=== PATIENT | female | born 1955 | race Caucasian/White ===

== ENCOUNTER 2018-05-24 02:56 | Outpatient (CLI) | payer OTHER, SELFPAY ==
[2018-05-24 10:08] LABS: ALT 22 U/L (12-78); AST 19 U/L (15-37); Albumin 3.8 g/dL (3.4-5.0); Alkaline Phosphatase 100 U/L (46-116); BUN 14 mg/dL (7-18); Bilirubin, Total 0.5 mg/dL (0.2-1.0); CREATININE 0.74 mg/dL (0.55-1.02); Calcium 9.2 mg/dL (8.5-10.1); Chloride 103 mmol/L (98-107); Glucose 89 mg/dL (70-100); Potassium 4.5 mmol/L (3.5-5.1); Sodium 140 mmol/L (136-145); Total Protein 7.6 g/dL (6.4-8.2)
[2018-05-27 10:05] LABS: CA 125 7 U/mL (0-30)
== END 2018-05-24 03:16 ==
DX: Z00.00 Encounter for general adult medical examination without abnormal findings (principal); I87.2 Venous insufficiency (chronic) (peripheral); Z96.641 Presence of right artificial hip joint; Z87.898 Personal history of other specified conditions
CPT/HCPCS: 36415; 80053; 86304

== ENCOUNTER 2018-06-05 11:53 | Outpatient (REF) | payer OTHER, SELFPAY ==
--- NOTE | 2018-06-05 09:30 | PAPFT_PTH ---
PATIENT: Qian Brewer LOC: [facility] U#:[id number] AGE/SX: 62/F ROOM: RE06/05/[address]: Ellie Dumont APRN : 1955 BED: DIS: 06/05/2018 SPEC #: [id number] RECD: 06/06/18 12:51 STATUS: WILMA CASTILLO #: [id number] NICCI: 06/05/18 09:[address]: Ellie Dumont DEPT: [facility] Cytology RECD BY: Yocasta Mccullough Tissues: 1 - CX/ENDOCX FOR PAP SMEARS Procedures: PAP THIN PREP/[facility] Screening HPV DNA PROBE Comments: [id number]
== END 2018-06-05 12:13 ==
LOC: LBN 11:53
DX: Z12.4 Encounter for screening for malignant neoplasm of cervix (principal); Z11.51 Encounter for screening for human papillomavirus (HPV)
CPT/HCPCS: 88142; 87624

== ENCOUNTER 2018-06-12 01:07 | Outpatient (CLI) | payer OTHER, SELFPAY ==
--- NOTE | 2018-06-12 07:55 | DI.US_ITS ---
SYMPTOMS/DIAGNOSIS: HYPERDENSE MASS, F/U RADIOLOGY EXAM 2013, ? HEMANGIOMA OF LIVER, D18.03 ABDOMINAL ULTRASOUND: The aorta and vena cava are normal. There is a region of increased echogenicity in the right hepatic lobe measuring 1.3 x 1.3 x 1.6 cm which appears avascular and appears to correspond to a hemangioma seen on a prior CT of 2013. The gallbladder is normal. There are no stones or ductal dilatation. The pancreas is normal. The spleen is normal. The kidneys are intact. The right kidney measures 10.6 cm. The left kidney 10.9 cm. There is no evidence of abdominal free fluid. SUMMARY: A 1.3 x 1.3 x 1.6 cm region of increased echogenicity in the right hepatic lobe appears to correspond to a previously demonstrated hemangioma seen on the CT of 2013.
== END 2018-06-12 01:27 ==
DX: D18.03 Hemangioma of intra-abdominal structures (principal)
CPT/HCPCS: 76700

== ENCOUNTER 2018-08-19 00:14 | Outpatient (CLI) | payer OTHER, SELFPAY ==
--- NOTE | 2018-08-19 09:00 | DI.MAMMO_ITS ---
SYMPTOM/DIAGNOSIS: SCREENING, Z12.31 MAMMOGRAMS: Mammograms were interpreted according to the usual protocol including computer analysis with CAD system, tomosynthesis and C view imaging. Comparison is made with 2018. The breasts are composed of scattered fibroglandular densities, breast density, category B. No suspicious masses or suspicious microcalcifications are seen. There has been no significant change. IMPRESSION: Category 1, negative mammogram. Yearly screening mammography is recommended. [facility] ASSESSMENT OF FINDINGS: Negative. Category 1. Patient will receive a letter notifying them of these results. BI-RADS category B. There are scattered areas of fibroglandular density.
== END 2018-08-19 00:34 ==
DX: Z12.31 Encounter for screening mammogram for malignant neoplasm of breast (principal)
CPT/HCPCS: 77063; 77067

== ENCOUNTER 2019-08-27 02:00 | Outpatient (CLI) | payer OTHER, SELFPAY ==
--- NOTE | 2019-08-27 08:00 | DI.MAMMO_ITS ---
EXAM: MAMMO SCREENING CLINICAL HISTORY: screening, Z12.39 TECHNIQUE: Mammograms were interpreted according to the usual protocol including computer analysis w ith CAD system, tomosynthesis and C-view imaging. COMPARISON: 2018 and 2019 FINDINGS: The breasts are composed of scattered fibroglandular densities, Breast Density category B. No suspicious masses or suspicious microcalcifications are seen. No skin thickening or abnormal axillary lymph nodes are seen. There has been no significant change from prior exams. IMPRESSION: BI-RADS Category 1 - Negative Yearly screening mammography is recommended. Breast Density Category B, scattered fibroglandular densities.
== END 2019-08-27 02:20 ==
DX: Z12.31 Encounter for screening mammogram for malignant neoplasm of breast (principal)
CPT/HCPCS: 77063; 77067

== ENCOUNTER 2020-08-11 02:08 | Outpatient (CLI) | payer OTHER, SELFPAY ==
[2020-08-11 11:38] LABS: ALT 21 U/L (14-59); AST 17 U/L (15-37); Albumin 3.8 g/dL (3.4-5.0); Alkaline Phosphatase 90 U/L (46-116); Anion Gap 9.7 mmol/L (3-11); BUN 17 mg/dL (7-18); Bilirubin, Total 0.3 mg/dL (0.2-1.0); CO2 27.3 mmol/L (21.0-32.0); CREATININE 0.8 mg/dL (0.55-1.02); Calcium 9.1 mg/dL (8.5-10.1); Chloride 107 mmol/L (98-107); Glucose 93 mg/dL (74-106); Potassium 4.8 mmol/L (3.5-5.1); Sodium 144 mmol/L (136-145); Total Protein 7.4 g/dL (6.4-8.2)
== END 2020-08-11 02:09 | disposition home or self-care (01) ==
LOC: LBO 02:08
DX: Z00.00 Encounter for general adult medical examination without abnormal findings (principal); R25.2 Cramp and spasm
CPT/HCPCS: 36415; 80053

== ENCOUNTER → 2021-08-17 01:17 | Outpatient (CLI) | payer OTHER, SELFPAY ==
--- NOTE | 2021-08-17 07:00 | DI.MAMMO_ITS ---
Exam(s) MAMMO SCREENING EXAM: MAMMO SCREENING CLINICAL HISTORY: screening,Z12.39 TECHNIQUE: Mammograms were interpreted according to the usual protocol including computer analysis w [employer] CAD system, tomosynthesis and C-view imaging. COMPARISON: FINDINGS: The breasts are of moderate density with fairly symmetrical distribution of fibroglandular tissue. N o dominant mass or clumped microcalcification is identified in either breast. The current examinatio n is compared with previous examinations including August 2019 and there has been no gross interval kusum nge in appearance in comparison with the prior studies. IMPRESSION: No specific evidence of malignancy at this time. Routine screening examinations are suggested at yea rly intervals in this age group according to the ACS ACR guidelines. BI-RADS Category 1 - Negative Breast Density - Category B - Scattered areas of fibroglandular density
== END ==
DX: Z12.31 Encounter for screening mammogram for malignant neoplasm of breast (principal)
CPT/HCPCS: 77063; 77067

== ENCOUNTER 2021-11-07 03:22 | Outpatient (CLI) | payer OTHER, SELFPAY ==
[2021-11-07 14:50] LABS: ALT 25 U/L (14-59); AST 17 U/L (15-37); Albumin 3.6 g/dL (3.4-5.0); Alkaline Phosphatase 79 U/L (46-116); Anion Gap 6.4 mmol/L (3-11); BUN 23 mg/dL (7-18); Bilirubin, Total 0.2 mg/dL (0.2-1.0); CO2 30.6 mmol/L (21.0-32.0); CREATININE 0.9 mg/dL (0.55-1.02); Calcium 8.8 mg/dL (8.5-10.1); Calculated LDL 76 mg/dL (<100); Chloride 105 mmol/L (98-107); Cholesterol 188 mg/dL (<200); Estimated GFR 70.95 (mL/min/1.73m2); Glucose 95 mg/dL (74-106); HDL Cholesterol 90 mg/dL (40-60); Sodium 142 mmol/L (136-145); Total Protein 7.6 g/dL (6.4-8.2); Triglyceride 110 mg/dL (<150)
== END 2021-11-07 03:23 | disposition home or self-care (01) ==
LOC: LBO 03:23
DX: E78.5 Hyperlipidemia, unspecified (principal); Z00.00 Encounter for general adult medical examination without abnormal findings
CPT/HCPCS: 36415; 80053; 80061

== ENCOUNTER → 2023-09-21 00:08 | Outpatient (CLI) | payer MEDICARE, OTHER, SELFPAY ==
--- OUTSIDE RECORDS SUMMARY | 2023-09-21 00:11 | XMS_ITS | Encounter Summary ---
[place] [address] Care Team Providers Care Structural Steel Shop Supervisor Name Role Phone Ellie Dumont BOONE Primary Care Provider Encounter Details Date Type Department Care Team (Late st Contact Info) Description 04/10/2017 Telephone [place] [phone] Deirdre Macdonald, RN Social History Tobacco Use Types Packs/Day Years Used Date Smoking Tobacco: Never Smokeless Tobacco: Never Alcohol Use Standard Drinks/Week Comments Yes 10 (1 standard drink = 0.6 oz pu re alcohol) Sex and Gender Information Value Date Recorded Sex Assigned at Not on file Gender Identity Not on file Sexual Orientation Not on file documented as of this encounter Miscellaneous Notes * Telephone Encounter - Deirdre Macdonald, RN - 04/10/2017 2:41 PM EST Surgeon Role Peter Claire MD Primary Karyn Cheek MD Resident-Surgeon [place] Procedure Laterality Anesthesia @TOTAL HIP ARTHROPLASTY, ANTERIOR APPROACH (WRVU 20.72) Right DOS: 04/09/2017 This author called the patient in regards to the message left on the prescription line. Patient needed clarification for Acetaminophen prescription and medication instructions. Clarified to the patient that according to the discharge summaryshe should take Acetaminophen 1000 mg tablets every 8 hours around the clock, not to exceed 3000 mg in 24 hours for 10 days after the surgery. Informed the patient that she can purchase 500 mg strength Acetaminophen OTC at the local pharmacy. Patient was grateful for clarification and is in agreement with the plan. documented in this encounter Plan of Treatment Not on file documented as of this encounter Visit Diagnoses Not on filedocumented in this encounter Care Teams Structural Steel Shop Supervisor Relationship Specialty Start Date End Date Ellie Dumont, BOONE [address] [place] [address] [address] [facility] [address] [place] [address] PCP - General Family Medicine 11/27/16 11/11/21 documented as of this encounter
--- OUTSIDE RECORDS SUMMARY | 2023-09-21 00:11 | XMS_ITS | Encounter Summary ---
Author Organization [facility] [place] [address] Care Team Providers Care Senior Radiation Protection Technician Name Role Phone Ellie Dumont APRN Primary Care Provider Encounter Details Date Type Department Care Team (Late st Contact Info) Description 10/31/2016 Telephone [place] [phone] Peter Claire MD [facility] [place] [address] Social History Tobacco Use Types Packs/Day Years Used Date Smoking Tobacco: Never Smokeless Tobacco: Never Alcohol Use Standard Drinks/Week Comments Yes 2.5 (1 standard drink = 0.6 oz p ure alcohol) Sex and Gender Information Value Date Recorded Sex Assigned at Not on file Gender Identity Not on file Sexual Orientation Not on file documented as of this encounter Miscellaneous Notes * Telephone Encounter - Aleida Cintron - 10/31/2016 10:40 AM EDT I called and left a message for patient to call [phone] directly and schedule surgery with Dr. Claire. documented in this encounter Plan of Treatment Not on file documented as of this encounter Visit Diagnoses Not on filedocumented in this encounter Care Teams Senior Radiation Protection Technician Relationship Specialty Start Date End Date Ellie Dumont APRN [address] [place] [place] [address] PCP - General Family Medicine 11/27/16 11/11/21 documented as of this encounter
--- OUTSIDE RECORDS SUMMARY | 2023-09-21 00:11 | XMS_ITS | Encounter Summary ---
Author Organization [facility] Address [facility] [place] [address] Care Team Providers Care Stope Miner Name Role Phone Ellie Dumont BOONE Primary Care Provider [phone] Reason for Referral * Physical Therapy (Routine) - Specialty Diagnoses / Procedures Referred By Uyen stockton Referred To Contact Orthopaedic Surgery Diagnoses Presence of right artificial hip joint Sharon Sotomayor MD [facility] [place] [address] Referral ID Status Reason Start Date Expiration Date V isits Requested Visits Authorized [id number] Evaluate and Treat 04/10/2017 10/07/2017 12 12 Reason for Visit * Auth/Cert Specialty Diagnoses / Procedures Referred By Uyen stockton Referred To Contact Diagnoses Pain in right hip Unilateral primary osteoarthritis, right hip Osteoarthritis Procedures PRO TOTAL HIP ARTHROPLASTY @TOTAL HIP ARTHROPLASTY, ANTERIOR APPROACH (WRVU 20.72) Referral ID Status Reason Start Date Expiration Date Visits Re quested Visits Authorized [id number] 1 1 Encounter Details Date Type Department Care Team (Latest Contact Info) Description 04/09/2017 5:43 AM EST - 04/10/2017 9:11 AM EST Hospital Encounter [address] [place] [id number] Trina Claire MD [facility] [place] [address] Pain in right hip; Primary osteoarthritis of right hip; s/p R anterior JOSE MARIA Dakotah 04/09/17 Discharge Disposition: Home Social History Tobacco Use Types Packs/Day Years Used Date Smoking Tobacco: Never Smokeless Tobacco: Never Alcohol Use Standard Drinks/Week Comments Yes 10 (1 standard drink = 0.6 oz pu re alcohol) Sex and Gender Information Value Date Recorded Sex Assigned at Not on file Gender Identity Not on file Sexual Orientation Not on file documented as of this encounter Last Filed Vital Signs Vital Sign Reading Time Taken Comments Blood Pressure 109/65 04/10/2017 7:45 AM EST Pulse 71 04/09/2017 4:55 PM EST Temperature 37.1 ??C (98.8 ??F) 04/10/2017 3:12 AM ES T Respiratory Rate 16 04/10/2017 7:45 AM EST Oxygen Saturation 95% 04/10/2017 7:45 AM EST Inhaled Oxygen Concentration - - Weight 73.5 kg (162 lb) 04/09/2017 6:11 AM EST Height 172.7 cm (5' 7.99) 04/09/2017 6:11 AM ES T Body Mass Index 24.64 04/09/2017 6:11 AM EST documented in this encounter Discharge Summaries * Sharon Sotomayor MD - 04/09/2017 6:54 PM EST Discharge Summary Patient Name: Qian Brewer Patient Age: 61 y.o. Language: Bhutanese Race: White Ethnicity: Not nor Admit date: 04/09/2017 Discharge date and time: 04/10/2017 Attending Physician: Trina Claire MD Discharge Physician: Trina Claire MD Follow-up Recommendations for Providers: See discharge instructions for additional details. Future Appointments Date Time Provider Department Center 04/24/2017 3:00 PM Laura García MD [facility] 05/15/2017 9:00 AM [facility] DX ROOM 1 [facility] 05/15/2017 10:10 AM Trina Claire MD [facility] [address] [place] [address] CLIN Inpatient Provider Contact Information: Trina Claire MD Orthopedics: [phone] After hours and weekends, call [facility] Ball Holder, , and have the Orthopedic resident paged. Discharge Diagnoses (Hospital Problems) and Secondary Diagnoses (Chronic Problems): Active Hospital Problems Diagnosis ??? s/p R anterior JOSE MARIA Dakotah 04/09/17 Resolved Hospital Problems Diagnosis Date Resolved No resolved problems to display. Active Non-Hospital Problems Diagnosis ??? Arthritis of right hip ??? S/P left JOSE MARIA 05/06/2012 Dr. King ??? Pelvic mass Operations/Major Procedures: 04/09/2017 Surgeon(s) and Role: * Trina Claire MD - Primary * Karyn Cheek MD - Resident-Surgeon Chadwick Procedure(s): @TOTAL HIP ARTHROPLASTY, ANTERIOR APPROACH (WRVU 20.72) MODIFIER PINNACLE ACETABULUM DEPUY MODIFIER ACTIS HIP STEM DEPUY History of Presentation: Qian Brewer is a 61 y.o. female with a long history of right hip pain and osteoarthritis. ??Her pain has not responded to conservative measures. ??We discussed the risks, benefits, and alternatives of right hip arthroplasty. ??The risks included, but were not limited to, infection, stiffness,recurrent pain, injury to vessel or nerve, DVT/PE, limb length inequality, fracture, dislocation, wound breakdown, loosening, malalignment, need for additional surgery, and loss of limb and/or life. ??All questions were answered and she wished to proceed. Hospital Course: The patient was admitted for the above operation. DVT prophylaxis is: aspirin 81 mg BID. Patient began rehab on POD#1 with weight bearing as tolerated of right leg and reinforcement of the JOSE MARIA Precautions. Dillon was removed on POD#0 and patient was voiding spontaneously. On POD#1 the operative Mepilex Ag dressing was inspected and was dry and intact (dressing should remain in place until POD#7). Patient did not have a bowel movement prior to discharge but was passing flatus and was taking a diet without difficulty. Patient was voiding spontaneously without issue. Pain was well controlled on oral medications. By POD#1 the patient was medically stable and was cleared for safe discharge to home per PT. Vital Signs at Discharge: Weight: Wt Readings from Last 1 Encounters: 04/09/17 73.5 kg (162 lb) Height: Ht Readings from Last 1 Encounters: 04/09/17 172.7 cm (5' 7.99) HC: HC Readings from Last 1 Encounters: No data found for HC BMI: Body mass index is 24.64 kg/(m^2). Last value Range last 24 hrs Temperature Temp: 37.1 ??C (98.8 ??F) Temp: [36.1 ??C (97 ??F)-37.8 ??C (100 ??F)] Heart Rate Heart Rate: 67 Heart Rate: [43-91] Blood Pressure BP: 109/65 BP: (98-129)/(48-69) Respiratory Rate Resp: 16 Resp: [8-29] SpO2 SpO2: 95 % SpO2: [95 %-100 %] Art BP BP (Arterial Line): -- Functional and Cognitive Status: Patient mobilizing with assistance, cognitively intact at baselinemental status at time of discharge. Important Lab Data: Last 3 wbc, hgb, hct plt Recent Labs 04/10/17 0329 03/13/17 1046 WBC 8.0 5.4 HGB 11.4* 13.1 HCT 34.7* 40.0 PLATELET 200 253 Last 3 Lytes Recent Labs 04/10/17 0329 03/13/17 1046 NA 139 142 K 4.3 4.1 CL 103 104 CO2 24 26 BUN 16 18 CREATININE 0.77 0.71 Studies: Xr Fluoro No Rad <1hr - Or Use Result Date: 04/09/2017 This order does not need a radiologist interpretation. Xr Pelvis (generic) Result Date: 04/09/2017 EXAMINATION: XR PELVIS (GENERIC) CLINICAL HISTORY: s/p R JOSE MARIA TECHNIQUE: Single AP view of the pelvis/both hips. COMPARISON: 10/31/2016. FINDINGS: New noncemented right total hip arthroplasty. Alignment is anatomic. Soft tissue air inclusions are consistent with the early postoperative status. Stablefindings of the left total hip arthroplasty. New right total hip arthroplasty without evidence of complications. Pending Studies and Lab Data at Discharge: None Transfusions: No Discharge Conditions/Prognosis: Stable, awake, and alert. Mobilizing as noted above, pain controlled on oral medications. Discharge to: Home Updated Allergies/ADRs: No Known Allergies Immunizations Given this Hospitalization: There is no immunization history on file for this patient. Discharge Medications: Your Medications UNREVIEWED medications - Discuss With Your Provider Dose Details amoxicillin 500 mg Cap Commonly known as: AMOXIL take 4 capsules by mouth 1 hour PRIOR TO SURGERY Refills: 0 betamethasone dipropionate 0.05 % Oint Commonly known as: DIPROLENE Apply twice daily to rash on legs for two weeks, take a week off, repeat. Quantity: 45 g Refills: 1 triamcinolone 0.025 % Oint Commonly known as: KENALOG apply topically twice a day Refills: 0 Smoking Status at Discharge: History Smoking Status ??? Never Smoker Smokeless Tobacco ??? Never Used Instructions for Rehab Providers or PCP: Instructions Given to Patient at Discharge: There are no outpatient Patient Instructions on file for this admission. General Instructions Orthopaedic Discharge Instructions Activity: 1. Your weight-bearing status is - weight bearing as tolerated of right leg. 2. Remember to use a walker or crutches as needed for balance and protection. Your physical therapist may progress you to using a cane when appropriate. 3. Remember your hip precautions: Standard: You should transition from sit to stand and stand to sit utilizing a broad based stance with feet and knees wider than hips. Anticoagulation: Aspirin - You are being discharged on enteric-coated Aspirin 81 mg by mouth twice a day for 30 days. After your dose on 05/09/17 stop the Aspirin, unless you are told otherwise by your Orthopedic surgeon. Take this medication with food or large amounts (240 mL) of water or milk to minimize GI irritation. Diet: Resume your usual diet but increase your intake of fluids and fiber while you are on narcoticpain meds to prevent constipation. Driving: None until you are cleared to do so by your Orthopedic surgeon. You should not drive whileyou are on narcotic pain meds as they can affect your judgment and reaction time. Call your surgeonwith any questions/concerns. Medications: 1. The pain medication you are on can cause constipation so increase your intake of fluids and fiber while you are on them. The stool softener, Pericolace, that has been prescribed can also be taken to facilitate a bowel movement. You can also take an kopj-wuz-xmhhoip medication, Miralax if needed to combat constipation. 2. If you need a renewal on your narcotic pain medication, you need to give the Orthopedic clinic enough time to process your request. This can take up to three days, so plan accordingly. 3. Continue acetaminophen (Tylenol) 1,000mg every 8 hours around the clock until 04/19/17 (for ten days after your surgery). This can be effective in controlling pain along with your other medications.After that you can take Tylenol as needed per package insert. Do not take more than 3,000mg of acetaminophen in a 24 hour period. 4. You have been discharged on a short acting narcotic. You will be on this medication for a limited period of time only. Take the smallest dose possible to control your pain. As your pain improves take smaller, less frequent doses. You may break the tablet to achieve a smaller dose. 5. You are being discharged on prescription strength naproxen (Aleve). This medication is a type ofnonsteroidal anti-inflammatory (NSAID). This will help with your pain and inflammation. Take this twice a day for the next 6 weeks. Your last dose will be on 05/21. If you no longer are requiring the narcotic pain medication you may change the way you take the prescribed naproxen and instead take twice a day as needed. 6. You are being discharged on a proton pump inhibitor. This will decrease stomach irritation that may be caused by NSAIDs. Take this daily for the next 6 weeks while you are on the NSAID. 7. You are being discharged on gabapentin (Neurontin), a non-narcotic medication that will help with your pain at night and allow you to sleep better. Take this at night for the next 4 weeks. Shower (internal sutures): 1. You can shower but remember your activity limitations and always have a chair available for balance and protection. DO NOT submerge the dressing/incision. 2. (Mepilex) Do not let water run over the operative dressing. If it becomes wet lightly pat the dressing dry. DO NOT submerge the incision. When this operative dressing is removed you can let water gently run over the incision. Wound (Mepilex): 1. You do NOT have any external nick or sutures in place. Your sutures are internal and will be absorbed over time. 2. You have a Mepilex dressing in place. Do not lift the edge of the Mepilex dressing to inspect the incision, it will not re-adhere. Remove your operative dressing 7 days after your surgery (04/16). When it is removed you can leave the incision open to air or cover it with a light dressing. 3. If you have lots of drainage when you get home (and it is before 04/16/17), remove the operative dressing and replace it with dry sterile gauze. Continue with daily dressing changes (and as needed)until the drainage stops, then remove the dressing and leave the incision open to air or lightly covered. Misc: Remember that ICE and elevation are very important after surgery to help decrease swelling and control pain. Use ICE for 20-30 minutes at a time and keep your leg elevated as much as possible. Call your doctor ([phone]) if you develop: 1. Fever greater than 100.5 2. Severe nausea or vomiting 3. Increasing pain that is not controlled by pain medications 4. Increasing redness, swelling, or drainage from incisions 5. Change in sensation FOLLOW-UP APPOINTMENTS: 1. You will have follow-up appointments at [facility] as indicated below in Future Appointment and Orders. 2. You will need to have x-rays prior to your follow-up appointment. [facility] hour [facility]FORE that appointment for these x-rays. Future Appointments Date Time [facility] Department [place] 04/24/2017 3:00 PM Laura García MD [facility] 05/15/2017 9:00 AM [facility] DX ROOM 1 [facility] 05/15/2017 10:10 AM Trina Claire MD [facility] [place] [facility] If you have questions or concerns: Sunday through Sunday, 8 AM - 5 PM, please call Trina Zheng MD's office at . If it is after 5 PM, the weekend, or holidays, please call and ask to speak with theOrthopedic resident on-call. Future Appointments and Orders Future Appointments Provider Department Dept Phone 04/24/2017 3:00 PM Laura García MD Dermatology at [address] [phone] 05/15/2017 9:00 AM [facility] DX ROOM 1 XRay at [place] [phone] Please go to Space [facility] Area 3T ([place] Location). 05/15/2017 10:10 AM Trina Claire MD Orthopaedics at [place] [phone] Primary Care Provider: Ellie Dumont, AVIATION OPERATIONS SPECIALIST [phone] Discharge References/Attachments None Click refresh button immediately prior to signing DCS to ensure all roberson are updated. documented in this encounter Discharge Instructions * Discharge Instructions* Sharon Sotomayor MD - 04/09/2017 6:50 PM EST Orthopaedic Discharge Instructions Activity: 1. Your weight-bearing status is - weight bearing as tolerated of right leg. 2. Remember to use a walker or crutches as needed for balance and protection. Your physical therapist may progress you to using a cane when appropriate. 3. Remember your hip precautions: Standard: You should transition from sit to stand and stand to sit utilizing a broad based stance with feet and knees wider than hips. Anticoagulation: Aspirin - You are being discharged on enteric-coated Aspirin 81 mg by mouth twice a day for 30 days. After your dose on 05/09/17 stop the Aspirin, unless you are told otherwise by your Orthopedic surgeon. Take this medication with food or large amounts (240 mL) of water or milk to minimize GI irritation. Diet: Resume your usual diet but increase your intake of fluids and fiber while you are on narcoticpain meds to prevent constipation. Driving: None until you are cleared to do so by your Orthopedic surgeon. You should not drive whileyou are on narcotic pain meds as they can affect your judgment and reaction time. Call your surgeonwith any questions/concerns. Medications: 1. The pain medication you are on can cause constipation so increase your intake of fluids and fiber while you are on them. The stool softener, Pericolace, that has been prescribed can also be taken to facilitate a bowel movement. You can also take an vawl-xni-lnzrcii medication, Miralax if needed to combat constipation. 2. If you need a renewal on your narcotic pain medication, you need to give the Orthopedic clinic enough time to process your request. This can take up to three days, so plan accordingly. 3. Continue acetaminophen (Tylenol) 1,000mg every 8 hours around the clock until 04/19/17 (for ten days after your surgery). This can be effective in controlling pain along with your other medications.After that you can take Tylenol as needed per package insert. Do not take more than 3,000mg of acetaminophen in a 24 hour period. 4. You have been discharged on a short acting narcotic. You will be on this medication for a limited period of time only. Take the smallest dose possible to control your pain. As your pain improves take smaller, less frequent doses. You may break the tablet to achieve a smaller dose. 5. You are being discharged on prescription strength naproxen (Aleve). This medication is a type ofnonsteroidal anti-inflammatory (NSAID). This will help with your pain and inflammation. Take this twice a day for the next 6 weeks. Your last dose will be on 05/21. If you no longer are requiring the narcotic pain medication you may change the way you take the prescribed naproxen and instead take twice a day as needed. 6. You are being discharged on a proton pump inhibitor. This will decrease stomach irritation that may be caused by NSAIDs. Take this daily for the next 6 weeks while you are on the NSAID. 7. You are being discharged on gabapentin (Neurontin), a non-narcotic medication that will help with your pain at night and allow you to sleep better. Take this at night for the next 4 weeks. Shower (internal sutures): 1. You can shower but remember your activity limitations and always have a chair available for balance and protection. DO NOT submerge the dressing/incision. 2. (Mepilex) Do not let water run over the operative dressing. If it becomes wet lightly pat the dressing dry. DO NOT submerge the incision. When this operative dressing is removed you can let water gently run over the incision. Wound (Mepilex): 1. You do NOT have any external nick or sutures in place. Your sutures are internal and will be absorbed over time. 2. You have a Mepilex dressing in place. Do not lift the edge of the Mepilex dressing to inspect the incision, it will not re-adhere. Remove your operative dressing 7 days after your surgery (04/16). When it is removed you can leave the incision open to air or cover it with a light dressing. 3. If you have lots of drainage when you get home (and it is before 04/16/17), remove the operative dressing and replace it with dry sterile gauze. Continue with daily dressing changes (and as needed)until the drainage stops, then remove the dressing and leave the incision open to air or lightly covered. Misc: Remember that ICE and elevation are very important after surgery to help decrease swelling and control pain. Use ICE for 20-30 minutes at a time and keep your leg elevated as much as possible. Call your doctor ([phone]) if you develop: 1. Fever greater than 100.5 2. Severe nausea or vomiting 3. Increasing pain that is not controlled by pain medications 4. Increasing redness, swelling, or drainage from incisions 5. Change in sensation FOLLOW-UP APPOINTMENTS: 1. You will have follow-up appointments at [facility] as indicated below in Future Appointment and Orders. 2. You will need to have x-rays prior to your follow-up appointment. Please come to Radiology, [facility], 1 hour BEFORE that appointment for these x-rays. Future Appointments Date Time [facility] Department [place] 04/24/2017 3:00 PM Laura García MD [facility] 05/15/2017 9:00 AM [facility] DX ROOM 1 [facility] 05/15/2017 10:10 AM Trina Claire MD [facility] [place] [facility] If you have questions or concerns: Sunday through Sunday, 8 AM - 5 PM, please call Trina Zheng MD's office at . If it is after 5 PM, the weekend, or holidays, please call and ask to speak with theOrthopedic resident on-call. documented in this encounter Medications at Time of Discharge Medication Sig Dispensed Refills Start Date End Date triamcinolone (KENALOG) 0.025 % Ointment apply topically twice a day 0 11/22/2016 betamethasone dipropionate (DIPROLENE) 0.05 % OintmentIndications:Srikanth ous stasis dermatitis, unspecified laterality Apply twice daily to rash on legs for two weeks, take a week off, repeat. 45 g 1 01/08/2017 amoxicillin (AMOXIL) 500 mg Capsule take 4 capsules by mouth 1 hour PRIOR TO SURGERY 0 09/28/2016 acetaminophen (TYLENOL) 500 mg Tablet Take 2 tablets by mouth every 8 hours for 28 days. 168 tablet 04/10/2017 05/08/2017 aspirin 81 mg Tablet, Delayed Release (E.C.) Take 1 tablet by mouth 2 times daily for 30 days. 60 tablet 04/10/2017 05/10/2017 naproxen (EC NAPROSYN) 500 mg Tablet, Delayed Release (E.C.) Take 1 tablet by mouth 2 times daily (with meals) for 41 days. 82 tablet 04/10/2017 05/21/2017 gabapentin (NEURONTIN) 300 mg Capsule Take 1 capsule by mouth nightly for 28 days. 28 capsule 04/10/2017 05/08/2017 senna-docusate (PERICOLACE) 8.6-50 mg Tablet Take 2 tablets by mouth 2 times daily. Take to maintain normal bowel pattern while taking narcotic pain medication. 04/10/2017 10/15/2018 bisacodyl (DULCOLAX) 5 mg Tablet, Delayed Release (E.C.) Take 2 tablets by mouth 2 times daily as needed for Constipation. 04/10/2017 10/15/2018 polyethylene glycol (MIRALAX) 17 gram Powder in Packet Take 17 g by mouth 2 times daily. Take to maintain normal bowel pattern while taking narcotic pain medication. 04/10/2017 10/15/2018 pantoprazole (PROTONIX) 20 mg Tablet, Delayed Release (E.C.) Take 1 tablet by mouth daily. 90 tablet 04/10/2017 10/15/2018 traMADol (ULTRAM) 50 mg Tablet Take 1 tablet by mouth every 6 hours as needed for Pain. Take 1 tablet (50mg) po Q6 hours prn MILD - MODERATE pain -OR- take 2 tablets (100mg) po Q6 hours prn SEVERE pain 60 tablet 04/10/2017 10/15/2018 documented as of this encounter Progress Notes * Selene Cotton RN - 04/10/2017 8:59 AM EST IV removed, site benign. My assessment remains unchanged from my previous assessment. Patient denies chest pain or SOB. Discussed pain management. Patient medicated before discharge. Patient has all belongings and has received discharge summary. Summary reviewed and all questions answered. Patient e ncouraged to call with any further questions or concerns. Patient discharged to home with family. Discharge packet and prescriptions sent home with patient. No VNA ordered * Karyn Cheek MD - 04/10/2017 6:33 AM EST ORTHOPAEDIC SURGERY INPATIENT PROGRESS NOTE ID: Qian Brewer is a 61 y.o. female s/p R anterior TJA, Jevsevar 04/09/17 24/S: HgB 11.4 Pain well controlled, no issues overnight. Worked with PT and cleared for home O: Temp: [36.1 ??C (97 ??F)-37.8 ??C (100 ??F)] Heart Rate: [43-91] Resp: [8-29] BP: (98-129)/(48-72) Intake/Output Summary (Last 24 hours) at 04/10/17 0633 Last data filed at 04/10/17 0403 Gross per 24 hour Intake 3090 ml Output 1600 ml Net 1490 ml Lab Results Component Value Date NA 139 04/10/2017 K 4.3 04/10/2017 CL 103 04/10/2017 CO2 24 04/10/2017 BUN 16 04/10/2017 CREATININE 0.77 04/10/2017 GLUCOSE 112 04/10/2017 CALCIUM 8.5 04/10/2017 Lab Results Component Value Date WBC 8.0 04/10/2017 HGB 11.4 (L) 04/10/2017 HCT 34.7 (L) 04/10/2017 MCV 90.6 04/10/2017 PLATELET 200 04/10/2017 Exam: General: NAD, awake/alert, responds to questions CV: RRR Resp: Breathing comfortably, lungs CTAB RLE: Anterior hip dressing c/d/i Sensory intact to light touch in lat fem cut/fem/sural/saph/SP/DP/T distributions Motor intact to FHL/EHL/TA, knee extension/flexion, hip extension/flexion Brisk capillary refill distally, foot warm/well-perfused A/P: Qian Brewer is a 61 y.o. female s/p R anterior JOSE MARIA. Cleared for home yesterday, but would like to go home this morning. HgB 11.4 represents acute blood loss anemia. PMH: L JOSE MARIA 2002 Christine Activity: WBAT RLE Closure: Monocryl Dressing: Mepilex x7 Anticoagulation: ASA Antibiotics: Ancef Consults: pt/ot Follow-up: 05/15 * Sharon Sotomayor MD - 04/09/2017 6:46 PM EST Orthopaedic Surgery Post-Op Check Note Patient Name: Qian Brewer Age: 61 y.o. Surgery/Issue: Right JOSE MARIA Attending: Dr. Claire Date of surgery: 04/09/2017 Subjective/Events: Denies CP, SOB, nausea, vomiting. Pain well controlled. Denies any numbness or tingling Denies any weakness Dillon out, has not voided on her own Working w/ PT currently Objective: Temp: [36.1 ??C (97 ??F)-37.1 ??C (98.8 ??F)] Heart Rate: [43-91] Resp: [8-29] BP: (98-129)/(48-72) Intake/Output Summary (Last 24 hours) at 04/09/17 1847 Last data filed at 04/09/17 1817 Gross per 24 hour Intake 2629 ml Output 1600 ml Net 1029 ml Lab Results Component Value Date NA 142 03/13/2017 K 4.1 03/13/2017 CL 104 03/13/2017 CO2 26 03/13/2017 BUN 18 03/13/2017 CREATININE 0.71 03/13/2017 GLUCOSE 95 03/13/2017 CALCIUM 9.1 03/13/2017 Lab Results Component Value Date WBC 5.4 03/13/2017 HGB 13.1 03/13/2017 HCT 40.0 03/13/2017 MCV 91.5 03/13/2017 PLATELET 253 03/13/2017 Exam: General: NAD, awake/alert, responds to questions CV: RRR, by peripheral palpatation Resp: Breathing comfortably, lungs CTAB RLE: Dressing c/d/i. Motor intact to EHL, FHL, TA. Sensation intact in foot/calf. Brisk capillary refill distally. Imaging: AP Pelvis The right hip is reduced. There is no evidence of intra-op fracture. A/P: 61 y.o. female POD#0 s/p right JOSE MARIA, progressing well with stable vitals. PMH: L JOSE MARIA 2002 [place] Activity: WBAT RLE Closure: Monocryl Dressing: Mepilex x7 Anticoagulation: ASA Antibiotics: Ancef Consults: pt/ot Follow-up: below Future Appointments Date Time Provider Department Center 04/24/2017 3:00 PM Laura García MD [facility] 05/15/2017 9:00 AM [facility] DX ROOM 1 [facility] 05/15/2017 10:10 AM Trina Claire MD [facility] [address] [place] [address] CLIN Sharon Sotomayor MD, PGY-1 Orthopaedic Surgery Pager #: [phone] * Meron Diaz RN - 04/09/2017 6:39 PM EST Admission Note: Patient returns from OR this shift. R hip mepilex is clean, dry, intact. VSS. Patient ambulating inthe hallways. Voiding in the urinal with low PVR. Utilizing front wheel walker; plans for early 8amdischarge tomorrow. Pain managed by oral medications. * Sonam Sevilla OT - 04/09/2017 5:21 PM EST Occupational Therapy Contact Note: Pt seen today for OT assessment on POD0 s/p R anterior JOSE MARIA. Pt functionally presents without concern at this time; no OT needs identified. Pt plans to see outpatient PT after d/c. From OT standpoint pt is ok for d/c home with support from . Full note to follow. Sonam Sevilla, OTR/L Pager #[phone] * Carla Shelton RN - 04/09/2017 9:58 AM EST 0934- pt arrived in PACU from OR. Attached to monitors, alarm parameters adjusted to pt and appropriate. Alarms audible. VSS. Dressing on right anterior hip c/d/i with palpable pulses in RLE. Ice pack to hip, SCDs on. Per norris Child with HR mid 40s as long as pt not symptomatic. Pt alert and oriented upon arrival. Pt moving lower extremities, numbness present in feet bilaterally. 1000- pt continues to do well, VSS. No pain , no n/v. 1020- pt straight cathed per order, pt unable to void. 1020- page sent to Malini SIMPSON regarding pts HR to low 40s. Pt mentating well, denies dizziness or lightheadedness. Spoke with Malini SIMPSON fine with pts HR at this time. 1030- Spoke with Светлана SIMPSON to let team know of HR in the 40s. Pt not symptomatic, Alert and oriented. 1100- Post-op Xrays completed. EKG paged. Pt moving extremities well, able to bend knees and move ankles/toes. With ice, sensory level T12. Pt taking sips of water, tolerating well. 1110- turned pt to inspect back, free from injury, spinal site benign. 1115- Pt meets phase 1 discharge criteria Denies pain or n/v. VSS. Awaiting EKG. See PACU flowsheetfor further assessment. 1125- EKG at bedside. EKG complete. Светлана SIMPSON made aware of completion. 1130- Spoke with Светлана SIMPSON. EKG and Xrays read. Pt doing well, VSS. Awaiting room assignment. 1415- Page sent to Светлана SIMPSON. Some swelling noted on right hip, soft to palpation, blanchable Dressing on right hip c/d/i. Dp and PT pulses on LLE 2+, brisk cap refill. 1445- Spoke with Светлана SIMPSON, fine with slight swelling since its soft to palpation with no discoloration but will come see pt in room. 1500- report called to Gregorio CARDENAS on . documented in this encounter H&P Notes * Karyn Cheek MD - 04/09/2017 6:14 AM EST Patient Name: Qian Brewer Patient Age: 61 y.o. Birthdate: 1955 Admit date: 04/09/2017 Attending Physician: Trina Claire MD 24-HOUR UPDATE Qian Brewer was seen in SDP. No interval events or changes in health status since preoperative H+P (see EPIC). Denies angina/dyspnea/fevers or malaise within the last 14 days. All questions were answered. Stable for surgery as scheduled. documented in this encounter Miscellaneous Notes * Plan of Care - Felipa Grace RN - 04/10/2017 5:47 AM EST Problem: Patient Care Overview Goal: Plan of Care Review Outcome: Ongoing (Interventions Implemented as Appropriate) 04/09/17 3981 Coping/Psychosocial Plan Of Care Reviewed With patient Plan of Care Review Progress progress toward functional goals as expected OUTCOME EVALUATION NOTE: OUTCOME SUMMARY: Pain tolerable this shift, scheduled tylenol and Toradol given with + effect. Up independently to bathroom. Will continue to monitor and help reach D/C goals. PLAN MOVING FORWARD: Pain control, mobilize, D/C planning INDIVIDUALIZED FALL PREVENTION INTERVENTIONS: Patient-specific fall risk factors per assessment: [current deficits]: Hospital environment, decreased mobility, acute pain, narcotic pain medication Assistance [level of assistance required for transfers and ambulation]: Standby assist/independent with FWW Supervision [direct monitoring required during toileting and ADLs]: Standby assist/independent withFWW Surveillance [continuous indirect monitoring]: Hourly rounding, call tom in gia ornelas Patient-specific fall prevention interventions for sensory deficits provided, if applicable: N/A CPG GOAL OUTCOME EVALUATION: * Plan of Care - Trina Frederick, PT - 04/09/2017 5:42 PM EST Problem: Patient Care Overview Goal: Plan of Care Review Outcome: Ongoing (Interventions Implemented as Appropriate) 04/09/17 9478 Coping/Psychosocial Plan Of Care Reviewed With patient Physical Therapy Treatment Number PT: 1 Pertinent History of Current Problem: POD#0 right anterior hip. Living Environment Comment: Pt lives in [place], [place] and has a threshold into the home. Will stay on first floor. Has a walker. Plans for outpatient PT this week. Precautions/Restrictions: weight bearing, hip (WBAT R LE, standard hip precautions - feet wider than hips) Vital Signs During Session: stable Pt seen today for Physical Therapy evaluation and therapeutic exercises. Pt did very well today by safely and independently clearing PT (bed mobility/transfers/gait) for home d/c pending medical clearance. She was able to void and resident checking in with patient for d/c plan. Pt to have outpatient PT this week and already has a walker. Please see the Rehab Evaluation Summaries report for objective data and specifics of today???s session. Staff Mobility Recommendations: Supervision with walker Anticipated Physical Therapy Frequency: evaluation only Anticipated Equipment Needs at Discharge: (none, has a walker) Anticipated Discharge Disposition: home with outpatient services Pager: [phone] TRINA FREDERICK, PT Inpatient Physical Therapy 2017 PT Evaluation Code Rationale: ?? Diagnosis & Pertinent Co-Morbidities, personal factors, and present illness affecting Plan of Care: Patient Active Problem List Diagnosis Code ??? Pelvic mass R19.00 ??? Arthritis of right hip M16.11 ??? S/P left JOSE MARIA 05/06/2012 Dr. King Z96.642 ??? s/p R anterior JOSE MARIA Jevsevar 04/09/17 Z96.641 ?? List of Factors: 0 1-2 3+ x ?? Examination of body system impairments, functional limitations and behaviors, that result in participation restrictions. Addressing 1-2 elements Addressing 3 + elements x Addressing 4 + elements ?? Clinical presentation: See assessment above. Stable/Uncomplicated Evolving/Fluctuating Symptoms Unstable/Unpredictable x ?? Clinical decision making of moderate complexity based on pt's functional performance as outlinedin this evaluation. G-Code: Mobility Status Modifier CURRENT CJ - At least 20 percent but less than 40 percent impaired, limited or restricted PROJECTED CJ - At least 20 percent but less than 40 percent impaired, limited or restricted DISCHARGE CJ - At least 20 percent but less than 40 percent impaired, limited or restricted G Code Rationale: This G-Code and these disability modifiers were selected on mobility as the primary therapy goal based upon the patient's evaluation including the following functional test(s) AM-PAC - Activity Measure for Post- Acute Care. Current ability measures, co-morbidities and clinical judgement were also used to select the disability modifier. Ms. Brewer's current G-Code functional level is 20-39% impaired based upon [facility]. * Plan of Care - Sonam Sevilla OT - 04/09/2017 5:11 PM EST Problem: Patient Care Overview Goal: Plan of Care Review Outcome: Ongoing (Interventions Implemented as Appropriate) 04/10/17 1550 Coping/Psychosocial Plan Of Care Reviewed With patient Occupational Therapy Evaluation Pertinent History of Current Problem: POD#0 right anterior hip. Active Non-Hospital Problems Diagnosis ??? Arthritis of right hip ??? S/P left JOSE MARIA 05/06/2012 Dr. King ??? Pelvic mass Precautions/Restrictions: fall, weight bearing Precautions Comments: WBAT R LE, standard hip precautions - feet wider than hips Living Environment Comment: Pt lives in [place], [place] and has a threshold into the home. Will stay on first floor. Has a walker. Plans for outpatient PT this week. Prior Functional Level Comment: independent; works in sales Assessment: Pt has been seen by OT for evaluation, please refer to associated flowsheet data for details. Pt demonstrates the ability to perform basic ADL???s despite pain/discomfort R hip, decreased activity tolerance, and slight imbalance requiring use of FWW for stability at this time. Despitethis, pt demo'd functional/safe mobility with walker, and ability to perform LB dressing/toileting/light ADLs without assistance required. Pt's will be home with her to assist in higher leveltasks if needed. Pt already has plans to see outpatient PT per report. Anticipate that pt will return home with assistance. Do not anticipate further OT needs. Therapy Frequency: evaluation only Anticipated Equipment Needs at Discharge: (has walker) Anticipated Discharge Disposition: home with assist Pager: [phone] SONAM SEVILLA OT Occupational Therapy Rehabilitation Department 2017 OT Evaluation Code Rationale: ?? Diagnosis & Pertinent Co-Morbidities affecting Plan of Care: see PMHx above ?? Occupational Profile & Client History: Brief Expanded Extensive x ?? Assessment of Occupational Performance: 1-3 performance deficits 3-5 performance deficits x 5 + performance deficits ?? Clinical Decision Making: Low Moderate High x Clinical decision making of moderate complexity using standardized patient assessment instrument and measurable assessment of functional outcome. G-Code: Self-Care Status Modifier CURRENT CH - 0 percent impaired, limited or restricted PROJECTED CH - 0 percent impaired, limited or restricted DISCHARGE CH - 0 percent impaired, limited or restricted G Code Rationale: This G-Code and these disability modifiers were selected as the primary therapy goal based upon the patient's evaluation including the following functional test(s) [facility] 6 Clicks Daily Activity Form. Current ability measures, co-morbidities and clinical judgment were also used to select the disability modifier. This Patient's current G-Code functional level is 0% impairedbased upon performance on 6 clicks. * Brief Op Note - Karyn Cheek MD - 04/09/2017 9:36 AM EST Brief Operative Note Patient Name: Qian Brewer : [id number] MR#: [id number] Case Date: 04/09/2017 Surgeon: Surgeon(s) and Role: * Trina Claire MD - Primary * Karyn Cheek MD - Resident-Surgeon Chadwick Preoperative diagnosis: Osteoarthritis Postoperative diagnosis: Osteoarthritis Procedure(s) (LRB): @TOTAL HIP ARTHROPLASTY, ANTERIOR APPROACH (WRVU 20.72) (Right) MODIFIER PINNACLE ACETABULUM DEPUY (N/A) MODIFIER ACTIS HIP STEM DEPUY (Right) Anesthesia: Spinal Findings: Osteoarthritic R hip Complications: None Estimated Blood Loss: 150 mL Specimens removed during surgery: None Fluids: Intraprocedure Crystalloid Total None PRBCs: none (See Anesthesia Record/Report for Other Blood Products) Urine Output: (no blood products) Drains: none Disposition: awakened from anesthesia, extubated and taken to the recovery room in a stable condition, having suffered no apparent untoward event. Condition: doing well without problems (Please see the Surgical Encounter Summary for any Implant and Specimen details pertinent to this patient.) Infection Bundle used? No * Op Note - Trina Claire MD - 04/09/2017 9:[address] [facility] Operative Note Patient Name: Qian Brewer : [id number] MR#: [id number] Case Date: 04/09/2017 Surgeon: Surgeon(s) and Role: * Trina Claire MD - Primary * Karyn Cheek MD - Resident-Surgeon Chadwick Preoperative diagnosis: Osteoarthritis Postoperative diagnosis: Osteoarthritis Procedure(s) (LRB): @TOTAL HIP ARTHROPLASTY, ANTERIOR APPROACH (WRVU 20.72) (Right) MODIFIER PINNACLE ACETABULUM DEPUY (N/A) MODIFIER ACTIS HIP STEM DEPUY (Right) Anesthesia: Spinal Estimated Blood Loss: 150 mL Specimens removed during surgery: None Drains: Surgical Closure: Primary Closure - closure of ALL tissue levels during the original surgery regardless of wires, wickes, drains, or other devices extruding through the incision Disposition: awakened from anesthesia, extubated and taken to the recovery room in a stable condition, having suffered no apparent untoward event. Condition: doing well without problems (Please see the Surgical Encounter Summary for any Implant and Specimen details pertinent to this patient.) HPI/Surgical Indications: Qian is a very pleasant 61-year-old female with a long history of right hip pain and osteoarthritis. Her pain has not responded to conservative measures. We discussed the risks, benefits, and alternatives of right hip arthroplasty. The risks included, but were not limited to, infection, stiffness, recurrent pain, injury to vessel or nerve, DVT/PE, limb length inequality, fracture, dislocation,wound breakdown, loosening, malalignment, need for additional surgery, and loss of limb and/or life. All questions were answered and she wished to proceed. ?? PROCEDURE DESCRIPTION: Following the induction of spinal anesthesia, the patient was placed supine on the HANA table. Her feet were placed into a well-padded traction boots, and all bony prominences were well-padded. An APfluoroscopic image was obtained for templating later in the procedure. Her right hip and lower extremity was then prepped and draped in normal sterile fashion. ?? A standard anterior approach to the hip was performed. Care was taken to protect the lateral femoral cutaneous nerve. The anterior or superior branches of the lateral circumflex vessels were ligated with electrocautery. An oblique capsule arthrotomy was performed with the limb based anteriorly and laterally. ?? Retractors were placed about the femoral neck. A femoral neck osteotomy was performed superior to the intertrochanteric tubercle. The femoral head neck were removed using a corkscrew. The femoral head was markedly degenerative. ?? A Charnley retractor was placed anteriorly and posteriorly on the capsule. Sequential reaming the acetabulum was carried up to a 51 mm reamer. I trialed with a 51 mm trial and this had excellent fit.Following copious irrigation, a [employer] [place] acetabular component, 52 mm, was impacted in the acetabulum appropriate horizontal abduction and anteversion. It had excellent fit and stability. A 36 mm by +4 mm acetabular liner was then impacted into the prosthesis. It was checked for stability and was stable. ?? I then performed a release of the posterior capsule using electrocautery. I also released the pupilfemoral ligament. The lower extremity was placed in the maximum hyperextension, hyper adduction, and hyper external rotation. A box osteotome was used to create a starting canal in the proximal femurparallel to the posterior cortex. Sequential broaching of the femur was carried up to a size 6 broach. We trialed with a neutral neck and a +1.5 mm head. The hip was reduced and an AP fluoroscopic image was obtained for templating. Our templated image showed that we had matched limb length and I elected to go with the higher offset prosthesis, and increased length to match the left hip. ?? The lower externally was then placed into the previous position. The broach was removed. The femur was then copiously irrigated with antibiotic solution using pulsatile lavage. A Depuy Actis size 6 femoral component was then impacted in the proximal femur. It had excellent fit. This was a high offset prosthesis. A 36 mm by +5 mm ceramic head was then impacted on the prosthesis and it was reduced.It was stable and 20?? of extension and 90?? of external rotation as well as flexion and internal rotation. ?? The wound was then copious irrigated with antibiotic solution. The capsule was closed with 0 Ethibond suture. The deep fascia was closed with a running 0 Vicryl suture. The subcutaneous tissues were closed with 2-0 Vicryl sutures. The skin was closed with a running subcuticular stitch of 3-0 Monocryl. Steri-Strips were applied and a Mepilex dressing was applied. ?? Estimated blood loss was 150 mL's. We injected 20 mL of 0.25% Marcaine around the wound and incision. The patient tolerated the procedure well. She was taken from the operating room to the recovery in stable condition. Infection Bundle used? N/A Attestation: Case Date: 04/09/2017 I was present and I participated during the entire procedure (does not need to include opening and closing). TRINA CLAIRE MD 04/09/2017 documented in this encounter Plan of Treatment Scheduled Referrals Name Type Priority Associated Diagnoses Orde r Schedule Referral to Physical Therapy Outpatient Referral Routine s/p R anterior JOSE MARIA [place] 04/09/17 Ordered: 04/10/2017 documented as of this encounter Procedures Procedure Name Priority Date/Time Associated Diagnosis Comments HEMOGRAM Routine 04/10/2017 3:29 AM EST DIFFERENTIAL, AUTOMATED Routine 04/10/2017 3:29 AM EST CBC (WITH DIFF) Routine 04/10/2017 3:29 AM EST BASIC METABOLIC PANEL (NON-FASTING) Routine 04/10/2017 3:29 AM EST EKG 12-LEAD STAT 04/09/2017 11:29 AM EST Pain in right hip XR PELVIS Routine 04/09/2017 11:00 AM EST XR FLUORO NO RAD <1HR - OR USE Routine 04/09/2017 9:17 AM EST MODIFIER ACTIS HIP STEM DEPUY 04/09/2017 7:30 AM EST Pain in right hip Primary osteoarthritis of right hip MODIFIER PINNACLE GRIPTION ACETABULUM DEPUY 04/09/2017 7:30 AM EST Pain in right hip Primary osteoarthritis of right hip TOTAL HIP ARTHROPLASTY, ANTERIOR APPROACH (WRVU 19.6) 04/09/2017 7:30 AM EST Pain in right hip Primary osteoarthritis of right hip documented in this encounter Results * Differential, Automated (04/10/2017 3:29 AM EST) Neutrophils % 74.8 % [facility] Neutr Abs (ANC) 6.00 1.70 - 6.10 x10(3)/[facility] Lymphocytes % 15.6 % [facility] Lymphocytes Abs 1.2 0.9 - 3.2 x10(3)/[facility] Monocytes % 8.9 % [facility] Monocyte Abs 0.7 0.3 - 0.9 x10(3)/[facility] Eosinophils % 0.1 % [facility] Eosinophils Abs 0.0 0.0 - 0.4 x10(3)/[facility] Basophils % 0.4 % [facility] Basophils Abs 0.0 0.0 - 0.1 x10(3)/[facility] Immature Gran % 0.20 % [facility] Comment: Immature granulocytes(IG's)percentage and absolute count will include metamyelocytes, myelocytes, and promyelocytes. Blood smears from CBCs yielding IG's will be scanned manually for concordance. If this scan disagrees with the automated IG or if promyelocytes are noted, a manual differential will be performed. Yane Gran Abs 0.02 0.00 - 0.04 x10(3)/[facility] Blood specimen (specimen) 04/10/2017 3:29 AM EST 04/10/2017 4:06 AM EST Narrative Resulting Agency Comment Spec In Lab Karyn Cheek MD HEMATOLOGY ORDERABLE S [facility] [place] [address] * (ABNORMAL) Hemogram (04/10/2017 3:29 AM EST) WBC 8.0 4.0 - 9.5 x10(3)/[facility] RBC 3.83(L) 4.00 - 5.21 x10(6)/[facility] Hemoglobin 11.4(L) 11.7 - 15.5 gm/dL [facility] Hematocrit 34.7(L) 35.7 - 45.8 % [facility] MCV 90.6 82.6 - 94.4 [facility] MCH 29.8 27.1 - 32.0 pg [facility] MCHC 32.9 31.7 - 35.0 gm/dL [facility] Platelets 200 145 - 357 x10(3)/[facility] RDWSD 42.3 37.0 - 46.0 [facility] RDWCV 12.7 11.5 - 14.1 % [facility] MPV 10.2 7.6 - 12.9 [facility] nRBC % Auto 0.0 % [facility] nRBC Abs Auto 0.000 0.000 - 0.000 x10(3)/[facility] Blood specimen (specimen) 04/10/2017 3:29 AM EST 04/10/2017 4:06 AM EST Narrative Resulting Agency Comment Spec In Lab Karyn Cheek MD HEMATOLOGY ORDERABLE S [facility] [place] [address] * Basic Metabolic Panel (non-fasting) (04/10/2017 3:29 AM EST) Pathologist [facility] [place] Glucose Lvl 112 65 - 199 mg/dL [facility] Comment:Diabetes: >=200 mg/d L plus symptoms BUN 16 8 - 18 mg/dL [facility] Creatinine 0.77 0.70 - 1.20 mg/dL [facility] Sodium 139 135 - 145 mmol/L [facility] Potassium 4.3 3.5 - 5.0 mmol/L [facility] Comment: Please note: ??Patients with WBC >100,000 may have falsely elevated Potassium levels. ??For accurate Potassium quantification in these patients send serum separator tube (gold top) for subsequent determinations. ??Contact the Clinical Chemistry Laboratory if there are any questions. Chloride 103 98 - 107 mmol/L [facility] CO2 24 22 - 31 mmol/L [facility] Anion Gap 12 5 - 15 mmol/L [facility] Calcium 8.5 8.5 - 10.5 mg/dL [facility] Estimated GFR >60 >=60 [facility] Comment: The reported eGFR should be multiplied by 1.2 for patients. The MDRD is not an appropriate measure of renal function for patients with body mass extremes or in patients with acute kidney failure. [email or web address] Blood specimen (specimen) 04/10/2017 3:29 AM EST 04/10/2017 4:06 AM EST Narrative Resulting Agency Comment Spec In Lab Trina Claire MD CHEMISTRY ORDERABLES [facility] [place] [address] * EKG 12 Lead (04/09/2017 11:29 AM EST) Pathologist [facility] [place] Ventricular rate 48 BPM MUSE SYSTEM Atrial Rate 48 BPM MUSE SYSTEM P-R Interval 182 ms MUSE SYSTEM QRS Duration 106 ms MUSE SYSTEM Q-T Interval 470 ms MUSE SYSTEM QTC Calculated (Bezet) 419 ms MUSE SYSTEM Calculated P [place] 51 degrees MUSE SYSTEM Calculated R [place] 46 degrees MUSE SYSTEM Calculated T [place] 44 degrees MUSE SYSTEM INTERPRETATION Marked sinus bradycardia Abnormal ECG When compared with ECG of 13-MAR-2017 10:42, Nonspecific T wave abnormality now evident in Inferior leads Confirmed by MD Mariana, Asim Andujar ([id number]) on 04/09/2017 5:32:50 PM MUSE SYSTEM 04/09/2017 11:2 9 AM EST 04/09/2017 5:32 PM EST Trina Claire MD ECG ORDERABLES MUSE SYSTEM * XR Pelvis (Generic) (04/09/2017 11:00 AM EST) Anatomical Region Laterality Modality Pelvis N/A Digital Radiogra phy Impressions 04/09/2017 12:25 PM EST New right total hip arthroplasty without evidence of complications. Narrative 04/09/2017 12:25 PM EST EXAMINATION: XR PELVIS (GENERIC) CLINICAL HISTORY: s/p R JOSE MARIA TECHNIQUE: Single AP view of the pelvis/both hips. COMPARISON: 10/31/2016. FINDINGS: New noncemented right total hip arthroplasty. Alignment is anatomic. Soft tissue air inclusions are consistent with the early postoperative status. Stable findings of the left total hip arthroplasty. Procedure Note Sydney Avitia MD - 04/09/2017 EXAMINATION: XR PELVIS (GENERIC) CLINICAL HISTORY: s/p R JOSE MARIA TECHNIQUE: Single AP view of the pelvis/both hips. COMPARISON: 10/31/2016. FINDINGS: New noncemented right total hip arthroplasty. Alignment is anatomic. Softtissue air inclusions are consistent with the early postoperative status. Stable findings of the left total hip arthroplasty. IMPRESSION New right total hip arthroplasty without evidence of complications. Electronically signed by: RIKA [facility], 04/09/2017 12:25 PM Trina Claire MD IMG DX ORDERABLES * XR Fluoro No Rad <1Hr - OR Use (04/09/2017 9:17 AM EST) Narrative RAD - 04/09/2017 9:17 AM EST This order does not need a radiologist interpretation. ?? Trina Claire MD IMG FLUORO ORDERABLE S Performing Organization Address City/State/[facility] Co de Phone Number [place], [place] documented in this encounter Visit Diagnoses Diagnosis s/p R anterior JOSE MARIA [facility] 04/09/17- Primary Hip joint replacement by other means Pain in right hip Pain in joint, pelvic region and thigh Primary osteoarthritis of right hip Primary localized osteoarthrosis, pelvic region and thigh s/p R anterior JOSE MARIA [facility] 04/09/17 Hip joint replacement by other means documented in this encounter Administered Medications Inactive Administered Medications - up to 3 most recent administrations Medication Order MAR Action Action Date Dose Rate Site acetaminophen (TYLENOL) tablet 1,000 mg 1,000 mg, Oral, ONCE, 1 dose, On Sun04/09/17 at 0615, Administer on arrival in Same Day Program, Day of Surgery (Day of Procedure), Routine Given 04/09/2017 6:34 AM EST 1,000 mg acetaminophen (TYLENOL) tablet 1,000 mg 1,000 mg, Oral, EVERY 8 HOURS SCHEDULED, First dose on Sun04/09/17 at 1400, Until Discontinued, Maximum dose of acetaminophen is 4000 mg from all sources in 24 hours., Routine Given 04/10/2017 5:32 AM EST 1,000 mg Given 04/09/2017 9:58 PM EST 1,000 mg Given 04/09/2017 2:30 PM EST 1,000 mg aspirin EC tablet 81 mg 81 mg, Oral, 2 TIMES DAILY, First dose on Sun04/09/17 at 2100, Until Discontinued, Routine Given 04/10/2017 8:02 AM EST 81 mg Given 04/09/2017 8:24 PM EST 81 mg ceFAZolin (ANCEF) 1g in dextrose 5% 50mL 1 g, Intravenous, EVERY 8 HOURS, 3 doses, First dose on Sun04/09/17 at 1144, Last dose on Sun04/10/17 at 0344, Administer over 30 Minutes, Adjust to 4 hours from intraoperative dose. * Beta-lactam based antibiotics (eg. Ampicillin, Cefazolin, Aztreonam) should be administered within 4 hours of the preceding intraoperative dose. * Vancomycin, Flouroquinolones, Clindamycin, Gentamicin, and Metronidazole should be administered within 8 hours of the preceding intraoperative dose., Recovery (Recovery-Hospital Unit), Indication for (Active or Suspected): Prophylaxis New Bag 04/10/2017 3:06 AM EST 1 g 100 mL/hr New Bag 04/09/2017 8:20 PM EST 1 g 100 mL/hr New Bag 04/09/2017 11:42 AM EST 1 g 100 mL/hr celecoxib (CeleBREX) capsule 200 mg 200 mg, Oral, 2 TIMES DAILY, First dose on Sun04/09/17 at 2100, Until Discontinued, Routine Given 04/10/2017 8:02 AM EST 200 mg Given 04/09/2017 8:23 PM EST 200 mg celecoxib (CeleBREX) capsule 400 mg 400 mg, Oral, ONCE, 1 dose, On Sun04/09/17 at 0615, Administer on arrival to Same Day Program, Day of Surgery (Day of Procedure), Routine Given 04/09/2017 6:34 AM EST 400 mg dexamethasone (DECADRON) tablet 4 mg 4 mg, Oral, DAILY, 2 doses, First dose on Sun04/09/17 at 1615, Last dose on Sun04/10/17 at 0900, Routine Given 04/10/2017 8:03 AM EST 4 mg Given 04/09/2017 4:15 PM EST 4 mg gabapentin (NEURONTIN) capsule 300 mg 300 mg, Oral, ONCE, 1 dose, On Sun04/09/17 at 0615, Administer on arrival in Same Day Program, Day of Surgery (Day of Procedure), Routine Given 04/09/2017 6:34 AM EST 300 mg gabapentin (NEURONTIN) capsule 300 mg 300 mg, Oral, NIGHTLY, First dose on Sun04/11/17 at 2100, Until Discontinued, Routine gabapentin (NEURONTIN) capsule 600 mg 600 mg, Oral, NIGHTLY, 2 doses, First dose on Sun04/09/17 at 2100, Last dose on Sun04/10/17 at 2100, Routine Given 04/09/2017 8:24 PM EST 600 mg ketorolac (TORADOL) injection 15 mg 15 mg, Intravenous, EVERY 6 HOURS SCHEDULED, 4 doses, First dose on Sun04/09/17 at 1000, Last dose on Sun04/10/17 at 0600, Routine Given 04/10/2017 3:06 AM EST 15 mg Given 04/09/2017 8:25 PM EST 15 mg Given 04/09/2017 10:38 AM EST 15 mg lactated Ringers infusion 1,000 mL 1,000 mL, at 100 mL/hr, Intravenous, CONTINUOUS, Starting on Sun04/09/17 at 0615, Until Sun04/09/17 at 1534, Day of Surgery (Day of Procedure) New Bag 04/09/2017 7:30 AM EST New Bag 04/09/2017 6:15 AM EST 1,000 mLs 100 mL/hr lidocaine (XYLOCAINE) 10 mg/mL (1 %) injection 3 mg 3 mg (0.3 mL), Subcutaneous, ONCE PRN, 1 dose, Starting on Sun04/09/17 at 0556, Until Sun04/09/17 at 0615, for discomfort with PIV insertion, Day of Surgery (Day of Procedure), Routine Given 04/09/2017 6:15 AM EST 3 mg midazolam (PF) (VERSED) 1 mg/mL injection 1-4 mg 1-4 mg, Intravenous, EVERY 5 MIN PRN, Starting on Sun04/09/17 at 0721, Until Sun04/09/17 at 0726, Sleep, or prior to injection of local anesthetic, Hold for delirium/agitation. (Maximum dose 5 mg)., Day of Surgery (Day of Procedure), Routine Given 04/09/2017 7:07 AM EST 1 mg Given 04/09/2017 7:05 AM EST 1 mg pantoprazole (PROTONIX) tablet 20 mg 20 mg, Oral, DAILY, First dose on Sun04/09/17 at 1615, Until Discontinued, DO NOT CRUSH OR OPEN Given 04/10/2017 8:02 AM EST 20 mg Given 04/09/2017 4:15 PM EST 20 mg senna-docusate (PERICOLACE) 8.6-50 mg per tablet 2 tablet 2 tablet, Oral, 2 TIMES DAILY, First dose on Sun04/09/17 at 2100, Until Discontinued, Routine Given 04/10/2017 8:03 AM EST 2 tablets Given 04/09/2017 8:24 PM EST 2 tablets sodium chloride 0.9 % flush 5 mL 5 mL, Intravenous, 2 TIMES DAILY, First dose on Sun04/09/17 at 1000, Until Discontinued, Recovery (Recovery-Hospital Unit), Routine Given 04/09/2017 8:23 PM EST 5 mLs sodium chloride 0.9% infusion 1,000 mL, at 100 mL/hr, Intravenous, CONTINUOUS, Starting on Sun04/09/17 at 1000, Until Sun04/10/17 at 1116, Recovery (Recovery-Hospital Unit) New Bag 04/09/2017 10:04 AM EST 1,000 mLs 100 m L/hr documented in this encounter Active and Recently Administered Medications Times are shown in EST. Scheduled Medication Order 04/08/2017 04/09/2017 04/10/2017 acetaminophen (TYLENOL) tablet 1,000 mg (COMPLETED) 1,000 mg, Oral, ONCE, 1 dose, On Sun04/09/17 at 0615, Administer on arrival in Same Day Program, Day of Surgery (Day of Procedure), Routine 0634 (Given - Provider: Ese Velasco RN) acetaminophen (TYLENOL) tablet 1,000 mg 1,000 mg, Oral, EVERY 8 HOURS SCHEDULED, First dose on Sun04/09/17 at 1400, Until Discontinued, Maximum dose of acetaminophen is 4000 mg from all sources in 24 hours., Routine 1430 (Given - Provider: Carla Shelton RN)2158 (Given - Provider: Felipa Grace, RONALD) 0532 (Given - Provider: Felipa Grace, RONALD) aspirin EC tablet 81 mg 81 mg, Oral, 2 TIMES DAILY, First dose on Sun04/09/17 at 2100, Until Discontinued, Routine 2023 (Given - Provider: Felipa Grace RN) 0802 (Given - Provider: Selene Cotton RN) ceFAZolin (ANCEF) 1g in dextrose 5% 50mL (COMPLETED) 1 g, Intravenous, EVERY 8 HOURS, 3 doses, First dose on Sun04/09/17 at 1144, Last dose on Sun04/10/17 at 0344, Administer over 30 Minutes, Adjust to 4 hours from intraoperative dose. * Beta-lactam based antibiotics (eg. Ampicillin, Cefazolin, Aztreonam) should be administered within 4 hours of the preceding intraoperative dose. * Vancomycin, Flouroquinolones, Clindamycin, Gentamicin, and Metronidazole should be administered within 8 hours of the preceding intraoperative dose., Recovery (Recovery-Hospital Unit), Indication for (Active or Suspected): Prophylaxis 1142 (New Bag - Provider: Carla Shelton RN)1212 (Stopped - Provider: Carla Shelton, RONALD)2019 (New Bag - Provider: Felipa Grace RN)2049 (Stopped - Provider: Felipa Grace RN) 0306 (New Bag - Provider: Felipa Grace RN)0336 (Stopped - Provider: Felipa Grace RN) ceFAZolin (ANCEF) 2g in dextrose 5% 100 mL (COMPLETED) 2 g, Intravenous, EVERY 3 HOURS, 1 dose, First dose on Sun04/09/17 at 0615, Administer over 30 Minutes, Redose after 3 hours., Intra-Operative (Intra-Procedure), Indication for (Active or Suspected): Prophylaxis 0748 (Given - Provider: Dot Child CRNA) celecoxib (CeleBREX) capsule 200 mg 200 mg, Oral, 2 TIMES DAILY, First dose on Sun04/09/17 at 2100, Until Discontinued, Routine 2022 (Given - Provider: Felipa Grace RN) 0802 (Given - Provider: Selene Cotton RN) celecoxib (CeleBREX) capsule 400 mg (COMPLETED) 400 mg, Oral, ONCE, 1 dose, On Sun04/09/17 at 0615, Administer on arrival to Same Day Program, Day of Surgery (Day of Procedure), Routine 0634 (Given - Provider: Ese Velasco RN) dexamethasone (DECADRON) tablet 4 mg (COMPLETED) 4 mg, Oral, DAILY, 2 doses, First dose on Sun04/09/17 at 1615, Last dose on Sun04/10/17 at 0900, Routine 1615 (Given - Provider: Meron Diaz RN) 0803 (Given - Provider: Selene Cotton RN) gabapentin (NEURONTIN) capsule 300 mg (COMPLETED) 300 mg, Oral, ONCE, 1 dose, On Sun04/09/17 at 0615, Administer on arrival in Same Day Program, Day of Surgery (Day of Procedure), Routine 06 (Given - Provider: Ese Velasco RN) gabapentin (NEURONTIN) capsule 300 mg(Linked Group 1) 300 mg, Oral, NIGHTLY, First dose on Sun04/11/17 at 2100, Until Discontinued, Routine gabapentin (NEURONTIN) capsule 600 mg(Linked Group 1) 600 mg, Oral, NIGHTLY, 2 doses, First dose on Sun04/09/17 at 2100, Last dose on Sun04/10/17 at 2100, Routine 2023 (Given - Provider: Felipa Grace RN) ketorolac (TORADOL) injection 15 mg 15 mg, Intravenous, EVERY 6 HOURS SCHEDULED, 4 doses, First dose on Sun04/09/17 at 1000, Last dose on Sun04/10/17 at 0600, Routine 1038 (Given - Provider: Carla Shelton RN)2024 (Given - Provider: Felipa Grace RN) 0306 (Given - Provider: Felipa Grace RN)0800 (Not Given - Provider: Selene Cotton RN - Reason: Patient/family refused) pantoprazole (PROTONIX) tablet 20 mg 20 mg, Oral, DAILY, First dose on Sun04/09/17 at 1615, Until Discontinued, DO NOT CRUSH OR OPEN 1615 (Given - Provider: Meron Diaz RN) 0802 (Given - Provider: Selene Cotton RN) polyethylene glycol (MIRALAX) packet 17 g 17 g, Oral, 2 TIMES DAILY, First dose on Sun04/09/17 at 2100, Until Discontinued, Routine 2099 (Not Given - Provider: Felipa Grace RN - Reason: Patient/family refused) 0803 (Not Given - Provider: Selene Cotton RN - Reason: Patient/family refused) senna-docusate (PERICOLACE) 8.6-50 mg per tablet 2 tablet 2 tablet, Oral, 2 TIMES DAILY, First dose on Sun04/09/17 at 2100, Until Discontinued, Routine 2023 (Given - Provider: Felipa Grace RN) 0803 (Given - Provider: Selene Cotton RN) sodium chloride 0.9 % flush 5 mL 5 mL, Intravenous, 2 TIMES DAILY, First dose on Sun04/09/17 at 1000, Until Discontinued, Recovery (Recovery-Hospital Unit), Routine 1000 (Not Given - Provider: Carla Shelton RN - Reason: Order parameters not met)2022 (Given - Provider: Felipa Grace RN) 0900 (Due) Continuous Medication Order 04/08/2017 04/09/2017 04/10/2017 lactated Ringers infusion 1,000 mL (CANCELED) 1,000 mL, at 100 mL/hr, Intravenous, CONTINUOUS, Starting on Sun04/09/17 at 0615, Until Sun04/09/17 at 1534, Day of Surgery (Day of Procedure) 0615 (New Bag - Provider: Ese Velasco RN)0730 (New Bag - Provider: Dot Child CRNA)0939 (Stopped - Provider: Dot Child CRNA) sodium chloride 0.9% infusion 1,000 mL, at 100 mL/hr, Intravenous, CONTINUOUS, Starting on Sun04/09/17 at 1000, Until Tu04/10/17 at 1116, Recovery (Recovery-Hospital Unit) 1004 (New Bag - Provider: Carla Shelton RN) PRN Medication Order 04/08/2017 04/09/2017 04/10/2017 bacitracin injection (CANCELED) ONCE PRN, Starting on Sun04/09/17 at 0714, Until Sun04/10/17 at 1116, Intra-Operative (Intra-Procedure), Routine 0714 (Given - Provider: Brendon Claire MD - Comment: Mixed with 3000 mL normal saline for PRN use via pulse lavage.) bisacodyl (DULCOLAX) EC tablet 10 mg 10 mg, Oral, 2 TIMES DAILY PRN, Starting on Sun04/09/17 at 1556, Until Tu04/10/17 at 1116, Constipation, DO NOT CRUSH OR OPEN Administer if needed per patient's routine or if no bowel movement within 48 hours to achieve: (1) One bowel movement every 48 hours, AND (2) without straining. If multiple PRN bowel medications ordered, start with lactulose, then oral bisacodyl, then bisacodyl suppository. Multiple medications may be given concomitantly for constipation., Routine bisacodyl (DULCOLAX) suppository 10 mg 10 mg, Rectal, DAILY PRN, Starting on Sun04/09/17 at 1556, Until Sun04/10/17 at 1116, Constipation, Administer if needed per patient's routine or if no bowel movement within 48 hours to achieve: (1) One bowel movement every 48 hours, AND (2) without straining. If multiple PRN bowel medications ordered, start with lactulose, then oral bisacodyl, then bisacodyl suppository. Multiple medications may be given concomitantly for constipation., Routine BUpivacaine (PF) (MARCAINE) 0.25 % (2.5 mg/mL) injection (CANCELED) ONCE PRN, Starting on Sun04/09/17 at 0904, Until Sun04/10/17 at 1116, Intra-Operative (Intra-Procedure), Routine 0904 (Given - Provider: Brendon Claire MD) lactulose (CHRONULAC) 20 gram/30 mL oral solution 20-40 g 20-40 g (30-60 mL), Oral, DAILY PRN, Starting on Sun04/09/17 at 1556, Until Sun04/10/17 at 1116, Constipation, Administer if needed per patient's routine or if no bowel movement within 48 hours to achieve: (1) One bowel movement every 48 hours, AND (2) without straining. If multiple PRN bowel medications ordered, start with lactulose, then oral bisacodyl, then bisacodyl suppository. Multiple medications may be given concomitantly for constipation., Routine lidocaine (XYLOCAINE) 10 mg/mL (1 %) injection 3 mg (COMPLETED) 3 mg (0.3 mL), Subcutaneous, ONCE PRN, 1 dose, Starting on Sun04/09/17 at 0556, Until Sun04/09/17 at 0615, for discomfort with PIV insertion, Day of Surgery (Day of Procedure), Routine 0615 (Given - Provider: Myron Velasco RN) lidocaine (XYLOCAINE) 10 mg/mL (1 %) injection 3 mg 3 mg (0.3 mL), Subcutaneous, ONCE PRN, 1 dose, Starting on Sun04/09/17 at 0941, Until Sun04/10/17 at 1116, for discomfort with PIV insertion, Recovery (Recovery-Hospital Unit), Routine midazolam (PF) (VERSED) 1 mg/mL injection 1-4 mg (CANCELED) 1-4 mg, Intravenous, EVERY 5 MIN PRN, Starting on Sun04/09/17 at 0721, Until Sun04/09/17 at 0726, Sleep, or prior to injection of local anesthetic, Hold for delirium/agitation. (Maximum dose 5 mg)., Day of Surgery (Day of Procedure), Routine 704 (Given - Provider: Myron Velasco, RN)706 (Given - Provider: Ese Velasco, RONALD) sodium chloride 0.9 % flush 5-20 mL 5-20 mL, Intravenous, EVERY 1 MIN PRN, Starting on Sun04/09/17 at 0941, Until Sun04/10/17 at 1116, flush, Flush pertains to all indwelling lines. Flush per protocol found in the job aid using the link provided on this medication record., Recovery (Recovery-Hospital Unit), Routine traMADol (ULTRAM) tablet 25-50 mg 25-50 mg, Oral, EVERY 6 HOURS PRN, Starting on Sun04/09/17 at 0943, Until Sun04/10/17 at 1116, Pain, For mild pain (1-3) give 25 mg. For moderate to severe pain (4-10) give 50 mg., Routine Linked Groups Order Group 1: gabapentin (NEURONTIN) capsule 600 mgJump to med 600 mg, Oral, NIGHTLY, 2 doses, First dose on Sun04/09/17 at 2100, Last dose on Sun04/10/17 at 2100, Routine Followed by gabapentin (NEURONTIN) capsule 300 mgJump to med 300 mg, Oral, NIGHTLY, First dose on Sun04/11/17 at 2100, Until Discontinued, Routine documented in this encounter Care Teams [employer] Relationship Specialty Start Date End Date Ellie Dumont APRN [address] [place] [address] [address] [facility] [address] [place] [address] PCP - General Family Medicine 11/27/16 11/11/21 documented as of this encounter
--- OUTSIDE RECORDS SUMMARY | 2023-09-21 00:11 | XMS_ITS | Clinical Summary ---
Author Organization [facility] Address 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 45 g 1 01/08/2017 Active Hospital, Clinic, or Other Facility Administered Medication Ordered Dose Route Frequency Start Date End Date Status mupirocin (BACTROBAN) 2 % ointmentIndications:Prima ry osteoarthritis of right hip,Hip pain, right Top 2 TIMES DAILY 04/04/2017 Active Active Problems Problem Noted Date Diagnosed Date s/p R anterior JOSE MARIA Jevsevar 04/09/17 04/09/2017 Arthritis of right hip 10/31/2016 S/P left JOSE MARIA 05/06/2012 Dr. King 10/31/2016 Pelvic mass 05/13/2012 Family History Medical History Relation Comments Diabetes Mother Heart Disease Mother Cancer Neg Hx Relation Status Comments Mother Social History Tobacco Use Types Packs/Day Years Used Date Smoking Tobacco: Never Smokeless Tobacco: Never Alcohol Use Standard Drinks/Week Comments Yes 10 (1 standard drink = 0.6 oz pu re alcohol) occasionally Sex and Gender Information Value Date Recorded Sex Assigned at Not on file Gender Identity Not on file Sexual Orientation Not on file Last Filed Vital Signs Vital Sign Reading Time Taken Comments Blood Pressure 118/62 10/15/2018 10:34 AM EDT Pulse 51 10/15/2018 10:34 AM EDT Temperature 37.1 ??C (98.8 ??F) 04/10/2017 3:12 AM ES T Respiratory Rate 16 04/10/2017 7:45 AM EST Oxygen Saturation 100% 10/15/2018 10:34 AM EDT Inhaled Oxygen Concentration - - Weight 72.3 kg (159 lb 6.4 oz) 10/15/2018 10:34 AM EDT measured Height 167.5 cm (5' 5.95) 10/15/2018 10:34 AM E DT measured Body Mass Index 25.77 10/15/2018 10:34 AM EDT Plan of Treatment Health Maintenance Due Date Last Done Comments CT Colonography 1955 Colonoscopy 1955 Colorectal Cancer Screening 1955 FIT DNA 1955 FIT 1955 Sigmoidoscopy (10 year) with FIT yearly 1955 Sigmoidoscopy 1955 Hepatitis C Screening 1974 Tdap adult 06/13/1975 Tetanus vaccine 06/13/1975 Breast Cancer Share Decision Needed 1996 Breast Cancer screening 1996 Zoster vaccine (1 of 2) 2006 Advance Directive 06/13/2011 Bone Density Scan 2021 Pneumoccocal Vaccine: 65+ (1 of 1 - PCV) 2021 Covid-19 Vaccine (1 - 2022- season) 2022 Influenza (Flu) vaccine (1 o f 1 - Influenza standard series) 10/21/2023 HPV test Discontinued 05/13/2012 PAP Smear Discontinued 05/13/2012 Diabetes Screening (HgbA1C or Glucose) Discontinued , 03/13/2017 Medical Devices Implanted Type Area Marketing Information Analyst Device Identifier Shelf Expiration Date Model / Serial / Lot Inser,Altrx,Nt ,+4,75x22mb ([id number]) (Autoreq) - [id number] Implanted:Qty: 1 on 04/09/2017 by [facility] Right: Hip DO NOT USE Depuy Meal Packer - 3527 01/18/2021 2 / / [id number] Head,Dlta,Crmc ,+5mm,12/14,36 mm ([id number]) (Autoreq) - [id number] Implanted:Qty: 1 on 04/09/2017 by [facility] Right: Hip DO NOT USE Depuy Meal Packer - 3527 11/18/2021 0 / / [id number] Stem,Actis,Fem l,High,Sz6 ([id number]) (Autoreq) - [id number] Implanted:Qty: 1 on 04/09/2017 by [facility] Right: Hip MEDICAL - [id number] 12/19/2026 1010-01-24 0 / / [id number] Cup,Hip,Acetb, Grptn,100,52mm ([id number]) ([employer]oreq) - [id number] Implanted:Qty: 1 on 04/09/2017 by [facility] Right: Hip DO NOT USE Depuy Meal Packer - 3527 2 / / [id number] Procedures Procedure Name Priority Date/Time Associated Diagnosis Comments BASIC METABOLIC PANEL (NON-FASTING) Routine 04/10/2017 3:29 AM EST LEAF CONDITIONER HELPER MOLECULAR GENETICS REPORT Routine 05/13/2012 6:34 PM EDT LEAF CONDITIONER HELPER CYTOLOGY FINAL REPORT Routine 05/13/2012 6:34 PM EDT from Last 3 Months or Most Recently Relevant to Health Maintenance Results * Basic Metabolic Panel (non-fasting) (04/10/2017 3:29 AM EST) Glucose Lvl 112 65 - 199 mg/dL [facility] Comment:Diabetes: >=200 mg/d L plus symptoms BUN 16 8 - 18 mg/dL [facility] Creatinine 0.77 0.70 - 1.20 mg/dL [facility] Sodium 139 135 - 145 mmol/L [facility] Potassium 4.3 3.5 - 5.0 mmol/L [facility] Comment: Please note: ??Patients with WBC >100,000 may have falsely elevated Potassium levels. ??For accurate Potassium quantification in these patients send serum separator tube (gold top) for subsequent determinations. ??Contact the Clinical Chemistry Laboratory if there are any questions. Chloride 103 98 - 107 mmol/L [facility] CO2 24 22 - 31 mmol/L [facility] Anion Gap 12 5 - 15 mmol/L [facility] Calcium 8.5 8.5 - 10.5 mg/dL [facility] Estimated GFR >60 >=60 [facility] Comment: The reported eGFR should be multiplied by 1.2 for patients. The MDRD is not an appropriate measure of renal function for patients with body mass extremes or in patients with acute kidney failure. http://Conversocial/DHnkdep http://Conversocial/DHMCnkf Blood specimen (specimen) 04/10/2017 3:29 AM EST 04/10/2017 4:06 AM EST Narrative Resulting Agency Comment Spec In Lab Peter Claire MD CHEMISTRY ORDERABLES [facility] [place] [address] * LEAF CONDITIONER HELPER Molecular Genetics Report (05/13/2012 6:34 PM EDT) LEAF CONDITIONER HELPER Molecular Genetics Report ? [facility] ? Provider: ?? SHARI QUIROZ ?? Pt. Name: ?? CORRY BREWER ? Acc #: ?[id number] ?Pt. ? Col Date: ?? 05/13/2012 ? /Sex: ?1955,(56 years),Female ? Rec Date: ?? 05/13/2012 ? LOC: ?3K ? MOLECULAR GENETIC STUDIES ? ---REPORT OF DNA ANALYSIS--- ? Paige Roman HPV test ? NEGATIVE for high-risk HPV *. ? It is recommended that patients with ASCUS cytology and a negative test for ? high-risk HPV undergo further evaluation according to current practice ? guidelines. ??* Testing negative for high risk HPV means that the specimen ? is negative for the following 14 types tested: ??types 16, 18, 31, 33, 35, ? 39, 45, 51, 52, 56, 58, 59, 66, and 68. ??The test is not intended to detect ? low risk HPV types. ? Specimen: HPV Testing - Cytology Liquid Based Prep ? Reviewed by: ??Nicola Nguyen, [facility] ? A ?LEE ANN Cerv-Endocerv LBP ? B ?HPVDO Do HPV Testing ? Verified date: ??05/16/12 ??[facility] ? Verified by: ?Lab Review, Molecular Genetics ? (Electronic Signature) NICCI BEAR 05/13/2012 6:34 PM EDT Shari Quiroz MD PATHOLOGY/CYTOLOGY O RDERABLES NICCI BEAR * Fixed Income Manager Cytology Final Report (05/13/2012 6:34 PM EDT) Fixed Income Manager Cytology Final Report ? [facility] ? Provider: ?? SHARI QUIROZ ?? Pt. Name: ?? CORRY BREWER ? Acc #: ?[id number] ?Pt. ? Col Date: ?? 05/13/2012 ? /Sex: ?1955,(56 years),Female ? Rec Date: ?? 05/13/2012 ? LOC: ?3K ? CYTOPATHOLOGY: ??LEAF CONDITIONER HELPER ? ---Adequacy--- ? Specimen submitted is satisfactory. ? Endocervical component present. ? ---Cytopathologic Diagnosis--- ? NORMAL ? Negative for Intraepithelial Lesion or Malignancy (NILM). ? 05/16/12 ?? Screened by: ??LMY ??LKC ? 05/17/12 ?? Verified by: ??Sherman CT(ASCP), Christina K - Audio Visual Coordinator ? ---Comment--- ? Please also see concurrent HPV test result. ? ---Clinical Information--- ? HPV Option: ? Concurrent HPV ? Preparation: ?Liquid Based Pap ? Specimen Source: ?Cervical Endocervical LBP ? LMP: ?NA ? Hormones?: ?No ? Hysterectomy?: ?No ?: ?No ?: ?No ? I.U.D.?: ?No ? Pelvic Radiation: ? No ? Prior LEAF CONDITIONER HELPER Therapy?: ? No ? Hist Abnl Pap/Biopsy?: ??No ? Hist of HPV Vaccine?: ?? No ? Hist of Smoking?: ? No ? Hist of NOEMI exposure?: ??No ? Clinical Data, Significant Therapy and Clinical Impression: ? This Pap Test has been evaluated with the assistance of the ThinPrep Pap ? Test Imaging System. ? Note: ? The Pap test is a screening test for cervical cancer with an inherent ? false-negative rate dependent upon several variables. ??For further ? information please contact the [facility]. ? [facility] ? Provider: ?? SHARI QUIROZ ?? Pt. Name: ?? CORRY BREWER ? Acc #: ?[id number] ?Pt. ? Col Date: ?? 05/13/2012 ? /Sex: ?1955,(56 years),Female ? Rec Date: ?? 05/13/2012 ? LOC: ?3K ? CYTOPATHOLOGY: ??LEAF CONDITIONER HELPER ? Reference: ??Abevarotjonatan CS. ??Reinforced Concrete Inspector of Pap Smear Results. ??In: ? Samanta BS, [facility], ed. ??The Pap Smear. ??[place]: ??Nicola, 2002: ? 71-77. NICCI GOYALENNIUM 05/13/2012 6:34 PM EDT Shari Quiroz MD PATHOLOGY/CYTOLOGY O RDERABLES NICCI FRANKSIUM from Last 3 Months or Most Recently Relevant to Health Maintenance Advance Directives * Full Code (Latest Code Status on File) Date Activated Date Inactivated Comments 04/09/2017 9:43 AM 04/10/2017 11:21 AM Question Answer Comments Does patient have capacity to make decision: Yes * Full Code Date Activated Date Inactivated Comments 04/09/2017 7:27 AM 04/09/2017 9:43 AM Question Answer Comments Does patient have capacity to make decision: Yes Care Teams 8Th Grade Teacher Relationship Specialty Start Date End Date Unknown None PCP - General 11/12/21
--- OUTSIDE RECORDS SUMMARY | 2023-09-21 00:11 | XMS_ITS | Encounter Summary ---
Author Organization [facility] Address [facility] [place] [address] Care Team Providers Care Box Gluer Name Role Phone Ellie Dumont BOONE Primary Care Provider [phone] Reason for Visit * Reason Comments Follow-up Encounter Details Date Type Department Care Team (Late st Contact Info) Description 04/24/2017 3:00 PM EST Office Visit Dermatology at [place] [address] [place] [address] Laura García MD [facility] [address] [facility] [address] Folliculitis (Primary Dx); Venous stasis dermatitis, unspecified laterality Social History Tobacco Use Types Packs/Day Years Used Date Smoking Tobacco: Never Smokeless Tobacco: Never Alcohol Use Standard Drinks/Week Comments Yes 10 (1 standard drink = 0.6 oz pu re alcohol) Sex and Gender Information Value Date Recorded Sex Assigned at Not on file Gender Identity Not on file Sexual Orientation Not on file documented as of this encounter Patient Instructions * Patient Instructions* Pau Wu LPN - 04/24/2017 3:00 PM EST Recommend using OTC Hibiclens on lower legs twice weekly Continue Betamethasone 0.05% ointment to thicker plaque on right ankle documented in this encounter Progress Notes * Laura García MD - 04/24/2017 3:00 PM EST Images from the original note were not included. DERMATOLOGY - ESTABLISHED PATIENT FOLLOW-UP Date of service: 04/24/2017 Qian Brewer : 1955, 61 y.o. Chief Complaint: F/U of lower leg rash. HPI: Qian Brewer is a 61 y.o. female last seen by myself on 01/08/2017. Ms. 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 Legs much improved with topical betamethasone. Currently applying every other day. Wearing compression stockings daily. Recently has R hip replaced 2 weeks ago--pleased w the outcome. Also complaining of pimples and pus. Not particularly painful. Gets them infrequently but is annoyed by them. Relevant Skin History: - Skin cancer (including type): no ?? Family History: Melanoma: no ?? Relevant Social History: - Sales ?? Medications: Current Outpatient Prescriptions Medication Sig Dispense Refill ??? acetaminophen (TYLENOL) 500 mg Tablet Take 2 tablets by mouth every 8 hours for 28 days. 168 tablet 0 ??? aspirin 81 mg Tablet, Delayed Release (E.C.) Take 1 tablet by mouth 2 times daily for 30 days. 60 tablet 0 ??? senna-docusate (PERICOLACE) 8.6-50 mg Tablet Take 2 tablets by mouth 2 times daily. Take to maintain normal bowel pattern while taking narcotic pain medication. ??? bisacodyl (DULCOLAX) 5 mg Tablet, Delayed Release (E.C.) Take 2 tablets by mouth 2 times daily as needed for Constipation. ??? polyethylene glycol (MIRALAX) 17 gram Powder in Packet Take 17 g by mouth 2 times daily. Take to maintain normal bowel pattern while taking narcotic pain medication. ??? naproxen (EC NAPROSYN) 500 mg Tablet, Delayed Release (E.C.) Take 1 tablet by mouth 2 times daily (with meals) for 41 days. 82 tablet 0 ??? pantoprazole (PROTONIX) 20 mg Tablet, Delayed Release (E.C.) Take 1 tablet by mouth daily. 90 tablet 0 ??? traMADol (ULTRAM) 50 mg Tablet Take 1 tablet by mouth every 6 hours as needed for Pain. Take 1 tablet (50mg) po Q6 hours prn MILD - MODERATE pain -OR- take 2 tablets (100mg) po Q6 hours prn SEVERE pain 60 tablet 0 ??? gabapentin (NEURONTIN) 300 mg Capsule Take 1 capsule by mouth nightly for 28 days. 28 capsule 0 ??? triamcinolone (KENALOG) 0.025 % Ointment apply topically twice a day 0 ??? betamethasone dipropionate (DIPROLENE) 0.05 % Ointment Apply twice daily to rash on legs for two weeks, take a week off, repeat. 45 g 1 ??? amoxicillin (AMOXIL) 500 mg Capsule take 4 capsules by mouth 1 hour PRIOR TO SURGERY 0 Current Facility-Administered Medications Medication Dose Route Frequency Provider Last Rate Last Dose ??? mupirocin (BACTROBAN) 2 % ointment Topical (Top) BID Peter Claire MD Allergies: No Known Allergies Review of Systems: - General: Feels well. - Skin: No other skin concerns. Examination: - Constitutional: Patient was alert, well-appearing and in no noticeable distress. - Skin: Skin examination of the lower legs. Diagnosis/Skin findings/Assessment/Plan: 1. Eczematous and lichenified plaques in the setting of stasis dermatitis- much improved: Hyperpigmented patches on the shins. Thick lichenified plaque on the R posterior lower leg. - discussed that dyschromia is 2/2 PIH -- will take time to resolve - PIH areas are not residual stasis derm -- advised pt to d/c topical steroids on these areas - lichenified plaque on the R distal lower leg still present -- advised that these are more stubborn to treat. Continue with: - Betamethasone 0.05% ointment BID to thicker plaque on right ankle for 2 weeks on, one week off, and repeat cycle as needed. - cont. Compression stockings 2. Folliculitis: Lower legs, a few hemorrhagic-crusted papules. - discussed nature of this condition -- like 2/2 staph colonization -OTC Hibiclens twice weekly to legs as needed. RTC: PRN Note initiated by Pau Wu LPN. I performed the above scribed service and agree with the accuracy of the documentation in this encounter. Reviewed and signed by: Laura García MD Resident in Dermatology [facility] Patient seen and evaluated with staff type copyist: Terri Blair MD Section of Dermatology [facility] * Terri Blair MD - 04/24/2017 3:00 PM EST I directly supervised Dr. Laura García during this office visit. Dr. García presented the history and physical exam to me. I then saw and examined this patient with Dr. García. We reviewed the history and pertinent details and I confirmed the physical findings. I agree with the details of the history and physical exam as documented in Dr. García's note. TERRI BLAIR MD Staff Physician documented in this encounter Plan of Treatment Not on file documented as of this encounter Visit Diagnoses Diagnosis Folliculitis- Primary Other specified disease of hair and hair follicles Venous stasis dermatitis, unspecified laterality documented in this encounter Care Teams Box Gluer Relationship Specialty Start Date End Date Ellie Dumont APRN [address] [place] [address] PCP - General Family Medicine 11/27/16 11/11/21 documented as of this encounter
--- OUTSIDE RECORDS SUMMARY | 2023-09-21 00:11 | XMS_ITS | Encounter Summary ---
Author [facility] [place] [address] Care Team Providers Care Project Manager Senior Name Role Phone Ellie Dumont BOONE Primary Care Provider [phone] Reason for Visit * Reason Comments Pre-op Exam R ANT JOSE MARIA 04/09/17 Encounter Details Date Type Department Care Team (Latest Contact Info) Description 03/13/2017 12:00 PM EST Office [place] [id number] David Rice MD [facility] [address] [place] [address] Preop examination; Primary osteoarthritis of right hip Social History Tobacco Use Types Packs/Day Years [...] Sign Reading Time Taken Comments Blood Pressure 135/68 03/13/2017 11:55 AM EST Pulse 69 03/13/2017 11:55 AM EST Temperature - - Respiratory Rate - - Oxygen Saturation 96% 03/13/2017 11:55 AM EST Inhaled Oxygen Concentration - - Weight 74.1 kg (163 lb 6.4 oz) 03/13/2017 11:55 AM EST Height 168.9 cm (5' 6.5) 03/13/2017 11:55 AM ES T Body Mass Index 25.98 03/13/2017 11:55 AM EST documented in this encounter H&P Notes * David Rice MD - 03/13/2017 12:00 PM EST Images from the original note were not included. CC: Qian Brewer is a 61 y.o. female with the following problems and medications that is beingseen in the clinic for consultation at the request of her surgeon Dr. Peter Claire for preoperative risk stratification and management recommendations in anticipation of right total hip arthroplasty for symptomatic OA. HPI - Pain - Location - right hip and groin, Quality - aching, Onset - gradual, Duration - several months, Intensity - moderate to severe, Aggravating factors - standing, walking, stepping, bending, Alleviating factors - NSAID, APAP, rest. She does note limb length discrepancy is subtle and not bothersome. Patient Active Problem List Diagnosis Code ??? Pelvic mass R19.00 ??? Arthritis of right hip M16.11 ??? S/P left JOSE MARIA 05/06/2012 Dr. King Z96.642 Current Outpatient Prescriptions Medication Sig Dispense Refill ??? triamcinolone (KENALOG) 0.025 % Ointment apply topically twice a day 0 ??? betamethasone dipropionate (DIPROLENE) 0.05 % Ointment Apply twice daily to rash on legs for two weeks, take a week off, repeat. 45 g 1 ??? amoxicillin (AMOXIL) 500 mg Capsule take 4 capsules by mouth 1 hour PRIOR TO SURGERY 0 No current facility-administered medications for this visit. Social History Occupational History ??? Not on file. Social History Main Topics ??? Smoking status: Never Smoker ??? Smokeless tobacco: Never Used ??? Alcohol use 6.0 - 10.8 oz/week 3 - 4 Standard drinks or equivalent, 7 - 14 Glasses of wine per week ??? Drug use: No ??? Sexual activity: Not Currently Family History Problem Relation Age of Onset ??? Diabetes Mother ??? Heart Disease Mother ??? Cancer Neg Hx Review of Systems: Review of Systems A 14 system review is negative except as above. Allergies: No Known Allergies Physical Exam: Last Set of Vitals and Range over past 24 hours: Last value Range last 24 hrs Temperature Temp: -- Heart Rate Heart Rate: 69 Heart Rate: -- Blood Pressure BP: 135/68 BP: -- Respiratory Rate Resp: -- SpO2 SpO2: 96 % SpO2: -- Body mass index is 25.98 kg/(m^2). Height: 168.9 cm (5' 6.5) Physical Exam Constitutional: She is oriented to person, place, and time. She appears well- developed and well-nourished. No distress. HENT: Head: Normocephalic and atraumatic. Mouth/Throat: Oropharynx is clear and moist. No oropharyngeal exudate. Eyes: Conjunctivae and EOM are normal. Right eye exhibits no discharge. Left eye exhibits no discharge. No scleral icterus. Neck: Neck supple. No JVD present. No tracheal deviation present. Cardiovascular: Normal rate, regular rhythm, normal heart sounds and intact distal pulses. Exam reveals no gallop and no friction rub. No murmur heard. Pulmonary/Chest: Effort normal and breath sounds normal. No stridor. No respiratory distress. She has no wheezes. She has no rales. Abdominal: Soft. Bowel sounds are normal. There is no tenderness. There is no rebound and no guarding. Musculoskeletal: She exhibits no edema. Internal rotation at right hip is severely restricted, mild restriction in flexion and moderate in external rotation. Has no drift of RLE. Antalgic gait favoring right hip. Lymphadenopathy: She has no cervical adenopathy. Neurological: She is alert and oriented to person, place, and time. She displays normal reflexes. No cranial nerve deficit. She exhibits normal muscle tone. Coordination normal. Skin: Skin is warm and dry. She is not diaphoretic. No pallor. Psychiatric: She has a normal mood and affect. Her behavior is normal. Judgment and thought contentnormal. Lab Results Component Value Date WBC 5.4 03/13/2017 RBC 4.37 03/13/2017 HGB 13.1 03/13/2017 HCT 40.0 03/13/2017 MCV 91.5 03/13/2017 MCH 30.0 03/13/2017 MCHC 32.8 03/13/2017 PLATELET 253 03/13/2017 RDWCV 13.0 03/13/2017 Lab Results Component Value Date NA 142 03/13/2017 K 4.1 03/13/2017 CL 104 03/13/2017 CO2 26 03/13/2017 BUN 18 03/13/2017 CREATININE 0.71 03/13/2017 GLUCOSE 95 03/13/2017 CALCIUM 9.1 03/13/2017 Estimated Creatinine Clearance: 87.7 mL/min (based on Cr of 0.71). EKG (image reviewed): normal EKG, normal sinus rhythm. Xray pelvis and right hip - severe OA A/P 1. Preop examination 2. Primary osteoarthritis of right hip She has impaired activity tolerance with her right hip and elects to proceed with JOSE MARIA. Major Risk Factor per the Revised Cardiac Risk Index (Bold if present) - There is no history of CAD, CHF, CVA or TIA, DM2 on insulin, or a Creatinine >2 Risk diagnosis for MACE (major adverse cardiovascular event = Myocardial infarction, pulmonary edema, ventricular fibrillation, primary cardiac arrest, or complete heart block.) : Low <1% . The patient describes a functional status of 4METs and more (goes up and down stairs) and based on the ACC/AHA 2014 guideline no further cardiovascular testing is indicated. ARISCAT/CANET Score - estimates the risk of postoperative pulmonary complications as being low ~3.5%. STOP BANG Score - low risk for CHELY. Per the ACS NSQIP calculator I estimated the following. We reviewed the difference in implant that will be used compared to prior she had on other side. We reviewed the Xray images together. We reviewed current approach to pain management with multimodal analgesia and the preference toward the use of spinal anesthesia for these procedures to facilitate enhanced recovery. RECCO: Orders per Dr. Peter Claire documented in this encounter Plan of Treatment Not on file documented as of this encounter Visit Diagnoses Diagnosis Preop examination Preoperative examination, unspecified Primary osteoarthritis of right hip Primary localized osteoarthrosis, pelvic region and thigh documented in this encounter Care Teams Project Manager Senior Relationship Specialty Start Date End Date Ellie Dumont APRN [address] [place] [address] PCP - General Family Medicine 10/9/17 9/23/22 documented as of this encounter
--- OUTSIDE RECORDS SUMMARY | 2023-09-21 00:11 | XMS_ITS | Encounter Summary ---
[place] [address] Care Team Providers Care Aerosol Line Operator Name Role Phone Ellie Dumont BOONE Primary Care Provider [phone] Encounter Details Date Type Department Care Team (Latest Contact Info) Description 03/13/2017 10:10 AM EST Laboratory [place] [id number] Pain in right hip; Primary osteoarthritis of right hip Social History [...] on file documented as of this encounter Plan of Treatment Not on file documented as of this encounter Procedures Procedure Name Priority Date/Time Associated Diagnosis Comments ABORH RECHECK STATUS Routine 03/13/2017 10:46 AM EST HEMOGRAM Routine 03/13/2017 10:46 AM EST Pain in right hip Primary osteoarthritis of right hip DIFFERENTIAL, AUTOMATED Routine 03/13/2017 10:46 AM EST Pain in right hip Primary osteoarthritis of right hip TYPE AND SCREEN, SDP (FUTURE SURGERY, [facility] SAME DAY PROGRAM ONLY) Routine 03/13/2017 10:46 AM EST Pain in right hip Primary osteoarthritis of right hip ABO/RH TYPING Routine 03/13/2017 10:46 AM EST Pain in right hip Primary osteoarthritis of right hip CBC (WITH DIFF) Routine 03/13/2017 10:46 AM EST Pain in right hip Primary osteoarthritis of right hip ANTIBODY SCREEN Routine 03/13/2017 10:46 AM EST Pain in right hip Primary osteoarthritis of right hip BASIC METABOLIC PANEL (NON-FASTING) Routine 03/13/2017 10:46 AM EST Pain in right hip Primary osteoarthritis of right hip documented in this encounter Results * ABORH Recheck Status (03/13/2017 10:46 AM EST) ABORH Type Recheck Completed [facility] Blood specimen (specimen) 03/13/2017 10:46 AM EST 03/13/2017 10:56 AM EST Narrative Resulting Agency Comment Spec In Lab Peter Claire MD BLOOD BANK LAB ORDER MARIA FERNANDA [facility] [place] [address] * Differential, Automated (03/13/2017 10:46 AM EST) Neutrophils % 60.0 % [facility] Neutr Abs (ANC) 3.24 1.70 - 6.10 x10(3)/[facility] Lymphocytes % 30.1 % [facility] Lymphocytes Abs 1.6 0.9 - 3.2 x10(3)/[facility] Monocytes % 6.5 % [facility] Monocyte Abs 0.4 0.3 - 0.9 x10(3)/[facility] Eosinophils % 1.9 % [facility] Eosinophils Abs 0.1 0.0 - 0.4 x10(3)/[facility] Basophils % 1.3 % [facility] Basophils Abs 0.1 0.0 - 0.1 x10(3)/[facility] Immature Gran % 0.20 % [facility] Comment: Immature granulocytes(IG's)percentage and absolute count will include metamyelocytes, myelocytes, and promyelocytes. Blood smears from CBCs yielding IG's will be scanned manually for concordance. If this scan disagrees with the automated IG or if promyelocytes are noted, a manual differential will be performed. Yane Gran Abs 0.01 0.00 - 0.04 x10(3)/[facility] Blood specimen (specimen) 03/13/2017 10:46 AM EST 03/13/2017 11:10 AM EST Narrative Resulting Agency Comment Spec In Lab Peter Claire MD HEMATOLOGY ORDERABLE S [facility] [place] [address] * Hemogram (03/13/2017 10:46 AM EST) WBC 5.4 4.0 - 9.5 x10(3)/[facility] RBC 4.37 4.00 - 5.21 x10(6)/[facility] Hemoglobin 13.1 11.7 - 15.5 gm/dL [facility] Hematocrit 40.0 35.7 - 45.8 % [facility] MCV 91.5 82.6 - 94.4 fL [facility] MCH 30.0 27.1 - 32.0 pg [facility] MCHC 32.8 31.7 - 35.0 gm/dL [facility] Platelets 253 145 - 357 x10(3)/[facility] RDWSD 43.8 37.0 - 46.0 [facility] RDWCV 13.0 11.5 - 14.1 % [facility] MPV 10.2 7.6 - 12.9 [facility] nRBC % Auto 0.0 % [facility] nRBC Abs Auto 0.000 0.000 - 0.000 x10(3)/mcL [facility] Blood specimen (specimen) 03/13/2017 10:46 AM EST 03/13/2017 11:10 AM EST Narrative Resulting Agency Comment Spec In Lab Peter Claire MD HEMATOLOGY ORDERABLE S [facility] [place] [address] * Antibody screen (03/13/2017 10:46 AM EST) Ab Screen Interp Negative [facility] Expires at [id number] on: 04/12/2017 [facility] Blood specimen (specimen) 03/13/2017 10:46 AM EST 03/13/2017 10:56 AM EST Narrative Resulting Agency Comment Spec In Lab Peter Claire MD BLOOD BANK LAB ORDER MARIA FERNANDA Performing Organization Address City/[facility]/ZIP Co de Phone Number [facility] [place] [address] * ABO/Rh Typing (03/13/2017 10:46 AM EST) ABORH Type A Neg [facility] Blood specimen (specimen) 03/13/2017 10:46 AM EST 03/13/2017 10:56 AM EST Narrative Resulting Agency Comment Spec In Lab Peter Claire MD BLOOD BANK LAB ORDER MARIA FERNANDA Performing Organization Address City/[facility]/ZIP Co de Phone Number [facility] [place] [address] * Basic Metabolic Panel (non-fasting) (03/13/2017 10:46 AM EST) Glucose Lvl 95 65 - 199 mg/dL [facility] Comment:Diabetes: >=200 mg/d L plus symptoms BUN 18 8 - 18 mg/dL [facility] Creatinine 0.71 0.70 - 1.20 mg/dL [facility] Sodium 142 135 - 145 mmol/L [facility] Potassium 4.1 3.5 - 5.0 mmol/L [facility] Comment: Please note: ??Patients with WBC >100,000 may have falsely elevated Potassium levels. ??For accurate Potassium quantification in these patients send serum separator tube (gold top) for subsequent determinations. ??Contact the Clinical Chemistry Laboratory if there are any questions. Chloride 104 98 - 107 mmol/L [facility] CO2 26 22 - 31 mmol/L [facility] Anion Gap 12 5 - 15 mmol/L [facility] Calcium 9.1 8.5 - 10.5 mg/dL [facility] Estimated GFR >60 >=60 [facility] Comment: The reported eGFR should be multiplied by 1.2 for patients. The MDRD is not an appropriate measure of renal function for patients with body mass extremes or in patients with acute kidney failure. http://[employer]Info/DHnkdep http://[employer]/DHMCnkf Blood specimen (specimen) 03/13/2017 10:46 AM EST 03/13/2017 11:10 AM EST Narrative Resulting Agency Comment Spec In Lab Peter Claire MD CHEMISTRY ORDERABLES Performing Organization Address City/State/[facility] Co de Phone Number [facility] [place] [address] documented in this encounter Visit Diagnoses Diagnosis Pain in right hip Pain in joint, pelvic region and thigh Primary osteoarthritis of right hip Primary localized osteoarthrosis, pelvic region and thigh documented in this encounter Care Teams Aerosol Line Operator Relationship Specialty Start Date End Date Ellie Dumont APRN [address] [place] [address] PCP - General Family Medicine 11/27/16 11/11/21 documented as of this encounter
--- OUTSIDE RECORDS SUMMARY | 2023-09-21 00:11 | XMS_ITS | Encounter Summary ---
Author Organization [facility] Address [facility] [place] [address] Care Team Providers Care Hole Puncher Strap Name Role Phone Ellie Dumont BOONE Primary Care Provider [phone] Encounter Details Date Type Department Care Team (Late st Contact Info) Description 05/07/2017 Orders [place] [address] Peter Claire MD [facility] [place] [address] s/p R anterior JOSE MARIA Dakotah 04/09/17 Social History Tobacco Use Types Packs/Day Years [...] on file documented as of this encounter Results * XR Pelvis & Lat Hip Right (Generic) (05/15/2017 9:21 AM EDT) Anatomical Region Laterality Modality Pelvis, Hip Right Digital Radiogra phy Impressions 05/15/2017 10:41 AM EDT Total hip arthroplasty. No acute complication. Narrative 05/15/2017 10:41 AM EDT EXAMINATION: XR PELVIS AND LAT HIP RIGHT (GENERIC) CLINICAL HISTORY: RIGHT JOSE MARIA TECHNIQUE: AP pelvis. In lateral views of the right hip COMPARISON: 04/09/2017 and 04/20/2003 FINDINGS: Following recent right total hip arthroplasty the patient is now status post bilateral total hip arthroplasty. At the right hip previously seen soft tissue gas has resolved. No fracture dislocation or other acute complication is identified. Procedure Note Keegan Delgado MD - 05/15/2017 EXAMINATION: XR PELVIS AND LAT HIP RIGHT (GENERIC) CLINICAL HISTORY: RIGHT JOSE MARIA TECHNIQUE: AP pelvis. In lateral views of the right hip COMPARISON: 04/09/2017 and 04/20/2003 FINDINGS: Following recent right total hip arthroplasty the patient is now statuspost bilateral total hip arthroplasty. At the right hip previously seen soft tissue gas has resolved. Nofracture dislocation or other acute complication is identified. IMPRESSION Total hip arthroplasty. No acute complication. 10:41 AM Peter Claire MD IMG DX ORDERABLES documented in this encounter Visit Diagnoses Diagnosis s/p R anterior JOSE MARIA Jevsevar 04/09/17 Hip joint replacement by other means s/p R anterior JOSE MARIA Jevsevar 04/09/17 Hip joint replacement by other means documented in this encounter Care Teams Hole Puncher Strap Relationship Specialty Start Date End Date Ellie Dumont APRN [address] [place] [address] PCP - General Family Medicine 11/27/16 11/11/21 documented as of this encounter
--- OUTSIDE RECORDS SUMMARY | 2023-09-21 00:11 | XMS_ITS | Encounter Summary ---
Author Organization [facility] [place] [address] Care Team Providers Care Diamond Cleaner Name Role Phone Ellie Dumont BOONE Primary Care Provider [phone] Encounter Details Date Type Department Care Team (Late st Contact Info) Description 01/22/[address] [facility] [address] [place] [address] Laura García MD [facility] [address] [place] [address] Social History Tobacco Use Types Packs/Day Years [...] encounter Miscellaneous Notes * Telephone Encounter - Jennifer Gray - 01/22/2017 11:03 AM EST I called and left the patient a VM asking them to give us a call back if they would like to schedule this appointment. I left the main line #. documented in this encounter Plan of Treatment Not on file documented as of this encounter Visit Diagnoses Not on filedocumented in this encounter Care Teams Diamond Cleaner Relationship Specialty Start Date End Date Ellie Dumont, BOONE [address] [place] [address] PCP - General Family Medicine 11/27/16 11/11/21 documented as of this encounter
--- OUTSIDE RECORDS SUMMARY | 2023-09-21 00:11 | XMS_ITS | Encounter Summary ---
[place] [address] Care Team Providers Care Pattern Molder Name Role Phone Ellie Dumont BOONE Primary Care Provider Reason for Visit * Auth/Cert Specialty Diagnoses / Procedures Referred By Uyen stockton Referred To Contact Diagnoses Pain in right hip Unilateral primary osteoarthritis, right hip Osteoarthritis Procedures PRO TOTAL HIP ARTHROPLASTY @TOTAL HIP ARTHROPLASTY, ANTERIOR APPROACH (WRVU 20.72) Referral ID Status Reason Start Date Expiration Date Visits Re quested Visits Authorized [id number] 1 1 Encounter Details Date Type Department Care Team (Late st Contact Info) Description 04/09/2017 7:30 AM EST Anesthesia Event [place] [address] Vannessa Nayak MD [facility] [place] [address] Anesthesia Record Procedure Summary Procedure Name Responsible Anesthesiologist Anesthesia Start Time Anesthesia Stop Time TOTAL HIP ARTHROPLASTY, ANTERIOR APPROACH (WRVU 19.6) (Right: Hip) Vannessa Nayak MD 04/09/17 0730 04/09/17 0939 Events Date Time Event Comment 04/09/2017 0730 AN Verify 0730 Start 0730 An Start Data 0738 Spinal 0752 Anesthesia Ready 0932 an stop data 0934 Recovery or ICU Handoff Sara ent care was transferred to the destination unit staff after review of the patient's medical history, current anesthetic/surgical status and plan, according to the Provider Handoff Checklist. 0939 Stop 1116 Meds Name Total Midazolam 2 mg Propofol 80 mg Propofol INF 344.72 mg BUpivacaine 0.75% spinal 15 mg ceFAZolin (ANCEF) 2g in dextrose 5% 100 mL 2 g Lidocaine 2% 50 mL ePHEDrine 30 mg PHENYLephrine 80 mcg lactated Ringers infusion 1,000 mL 1,000 mL * Agents Name O2 Air N2O O2 Auxiliary Flowmeter 1 * Blood No blood administrations on file. Lines, Drains, and Airways Type Details Placement Removal (RETIRED) Peripheral IV Line - Single Lumen 04/09/17; 0620; cephalic vein (lateral side of arm), right; [id number] catheter system; 18 gauge, 3/4 in length; Ese Velasco RN; intradermal injection, distraction, tolerated well; 0; 04/10/17; 0851 04/09/17 0620 by Ese Velasco RN 04/10/17 0851 by Selene Cotton RN Incision 04/09/17; 0803; hip; 10/17/21 (LDA cleanup utility RA#[id number]); 1715 (LDA cleanup utility RA#[id number]) 04/09/17 0803 by Leonie Horton RN 10/17/21 1715 by Nahum Antonio documented in this encounter Social History Tobacco Use Types Packs/Day Years Used Date Smoking Tobacco: Never Smokeless Tobacco: Never Alcohol Use Standard Drinks/Week Comments Yes 10 (1 standard drink = 0.6 oz pu re alcohol) Sex and Gender Information Value Date Recorded Sex Assigned at Not on file Gender Identity Not on file Sexual Orientation Not on file documented as of this encounter OR Notes * Anesthesia Postprocedure Evaluation - Vannessa Nayak MD - 04/09/2017 12:12 PM EST [facility] Department of Anesthesiology Post-procedure Note Patient: Qian Brewer Procedure Summary Date Anesthesia Start Anesthesia Stop Room / Location 04/09/17 0730 0939 [facility] Procedure Diagnosis Surgeon Responsible Provider @TOTAL HIP ARTHROPLASTY, ANTERIOR APPROACH (WRVU 20.72) (Right Hip); MODIFIER PINNACLE ACETABULUM DEPUY (N/A Hip); MODIFIER ACTIS HIP STEM DEPUY (Right Hip) Pain in right hip; Primary osteoarthritis of right hip (Osteoarthritis) Peter Claire MD Welch, Marnie B, MD All Anesthesia Providers: Anesthesiologist: Vannessa Nayak MD WEAPONS AND TACTICS INSTRUCTOR: Dot Child CRNA Most Recent Vitals: 04/09/17 1200 BP: 114/61 Pulse: 55 Resp: 17 Temp: SpO2: 98% Pain 0 (04/09/17 1145) Patient Location: PACU/[facility] Level of Consciousness: Awake and Alert Pain Management: Satisfactory Analgesia PONV: None Cardiovascular Status: At Baseline and Hemodynamically Stable Respiratory Status: At Baseline and Room Air Postoperative Fluid Status: Intravascular EUvolemia Possible Anesthetic Complications: NONE apparent at time of evaluation Final Primary Anesthesia Type: General (The anesthetic type performed was the same as planned.) Comments: VANNESSA NAYAK MD Pt doing well in PACU, no complaints, motor block resolving * Anesthesia Procedure Notes - Dot Child CRNA - 04/09/2017 7:53 AM EST Associated Order(s): ANE NEURAXIAL UPDATED Procedure: Neuraxial Block Primary Anesthetic Type: Spinal The patient was greeted. The sedation plan, its benefits, risks and alternatives were discussed with the patient. The patient has consented to the procedure. The medical history and chart were reviewed. The timeout was performed. Start time: 04/09/2017 7:30 AM End time: 04/09/2017 7:40 AM Patient Location: Operating Room Patient Prep Prep: Hat, Mask, Chlorhexidine, Hand Hygiene and Patient Draped Injection technique: single-shot Skin Anesthetic Lidocaine 1% 3 ml Procedure Technique Level of needle insertion: L3-4 Needle approach: midline Needle Type: Dimitrios Art Gauge: 25 Needle length: 3.5 in Number of attempts: 1 Intrathecal Injection The patient received the following medication/s as an intrathecal injection: Bupivacaine 0.75% w dextrose 2 ml Events/Notes Events: None Additional Notes: First attempt, just pressure Somewhat high resistance to injection, went slow, + CSF swirl 4 - 5 times during injection to confirm. Pt with in general tight paraspinal muscle and tight ligaments. Feeling numb bilaterally Resident/WEAPONS AND TACTICS INSTRUCTOR: Second Resident/WEAPONS AND TACTICS INSTRUCTOR: Fellow: Attending Physician: VANNESSA NAYAK ~~~~~~~~~~~~~~~~~~~~~~~~~~~~~~~~~~~~~~~~~~~~~~~~~~~~~~~~~~~~ * Anesthesia Preprocedure Evaluation - Vannessa Nayak MD - 04/06/2017 3:06 PM EST Pre-Anesthesia Evaluation for: Qian Brewer a 61 y.o. female. Procedure(s): @TOTAL HIP ARTHROPLASTY, ANTERIOR APPROACH (WRVU 20.72) MODIFIER PINNACLE ACETABULUM DEPUY MODIFIER ACTIS HIP STEM DEPUY Patient Active Problem List Diagnosis ??? Arthritis of right hip ??? S/P left JOSE MARIA 05/06/2012 Dr. King ??? Pelvic mass No past medical history on file. Past Surgical History: Procedure Laterality Date ??? JOINT REPLACEMENT 2007 left hip Social History Substance Use Topics ??? Smoking status: Never Smoker ??? Smokeless tobacco: Never Used ??? Alcohol use 6.0 - 10.8 oz/week 3 - 4 Standard drinks or equivalent, 7 - 14 Glasses of wine per week History Drug Use No No Known Allergies Medications: MAR and/or home medications have been reviewed. Physical Exam: There were no vitals filed for this visit. There is no height or weight on file to calculate BMI. Airway Assessment: Mallampati: II TM distance: >3 FB Neck ROM: full Cardiovascular Assessment: Rhythm: regular Pulmonary Assessment: breath sounds clear to auscultation Dental Assessment: Misc Assessment: IV access: Peripheral line Anesthesia Plan: ASA 2 spinal, with a(n) intravenous induction 61 y/o here for total hip RIGHT for OA PMH: pelvic mass history, rare EtOH, good fx capacity, no smoking, no GERD PSH: other hip surgery 13 years ago, doesn't remember the technique NSR Plan : block F.I, spinal with sedation ( pt doesn't want to remember much of OR), back up General LMA The patient was informed about the risks of anesthesia, and consent was obtained. These risks include, but are not limited to, pain, PONV, sore throat, and other rare but serious complications including major organ damage, intraoperative awareness, allergies, blood transfusions, and dental / lip tra ellen. Regarding the nerve block, particular risks include block failure, and other rare but serious complications including nerve injury, damage to surrounding structure, bleeding / injection at the site, and LAST. Region - Other Informed Consent: Anesthetic plan and risks discussed with patient. Plan discussed with WEAPONS AND TACTICS INSTRUCTOR. PAT Staff Note documented in this encounter Plan of Treatment Not on file documented as of this encounter Procedures Procedure Name Priority Date/Time Associated Diagnosis Comments ANE NEURAXIAL UPDATED Routine 04/09/2017 7:57 AM EST Procedure Note - Dot Child CRNA - 04/09/2017 7:53 AM ESTThis note is in progress. Procedure: Neuraxial Block Primary Anesthetic Type: Spinal The patient was greeted. The sedation plan, its benefits, risks andalternatives were discussed with the patient. The patient has consentedto the procedure. The medical history and chart were reviewed. Thetimeout was performed. Start time: 04/09/2017 7:30 AM End time: 04/09/2017 7:40 AM Patient Location: Operating Room Patient Prep Prep: Hat, Mask, Chlorhexidine, Hand Hygiene and Patient Draped Injection technique: single-shot Skin Anesthetic Lidocaine 1% 3 ml Procedure Technique Level of needle insertion: L3-4 Needle approach: midline Needle Type: Dimitrios Art Gauge: 25 Needle length: 3.5 in Number of attempts: 1 Intrathecal Injection The patient received the following medication/s as an intrathecalinjection: Bupivacaine 0.75% w dextrose 2 ml Events/Notes Events: None Additional Notes: First attempt, just pressure Somewhat high resistance to injection, went slow, + CSF swirl 4 - 5 timesduring injection to confirm. Pt with in general tight paraspinal muscleand tight ligaments. Feeling numb bilaterally Resident/WEAPONS AND TACTICS INSTRUCTOR: Second Resident/WEAPONS AND TACTICS INSTRUCTOR: Fellow: Attending Physician: VANNESSA NAYAK ~~~~~~~~~~~~~~~~~~~~~~~~~~~~~~~~~~~~~~~~~~~~~~~~~~~~~~~~~~~~ documented in this encounter Visit Diagnoses Not on filedocumented in this encounter Administered Medications Inactive Administered Medications - up to 3 most recent administrations Medication Order MAR Action Action Date Dose Rate Site BUpivacaine 0.75% in dextrose 8.25% (intrathecal) (SENSORCAINE) 0.75 % (7.5 mg/mL) injection Intrathecal, PRN, Starting on Sun04/09/17 at 0738, Until Sun04/09/17 at 0941, Anesthesia Intra-op, Routine Given 04/09/2017 7:38 AM EST 15 mg ceFAZolin (ANCEF) 2g in dextrose 5% 100 mL 2 g, Intravenous, EVERY 3 HOURS, 1 dose, First dose on Sun04/09/17 at 0615, Administer over 30 Minutes, Redose after 3 hours., Intra-Operative (Intra-Procedure), Indication for (Active or Suspected): Prophylaxis Given 04/09/2017 7:48 AM EST 2 g ePHEDrine 5 mg/mL multi-dose injection PRN, Starting on Sun04/09/17 at 0829, Until Sun04/09/17 at 0941, Anesthesia Intra-op, Routine Given 04/09/2017 8:55 AM EST 10 mg Given 04/09/2017 8:29 AM EST 10 mg Given 04/09/2017 8:21 AM EST 5 mg lactated Ringers infusion 1,000 mL 1,000 mL, at 100 mL/hr, Intravenous, CONTINUOUS, Starting on Sun04/09/17 at 0615, Until Sun04/09/17 at 1534, Day of Surgery (Day of Procedure) New Bag 04/09/2017 7:30 AM EST New Bag 04/09/2017 6:15 AM EST 1,000 mLs 100 mL/hr lidocaine (PF) (XYLOCAINE) 20 mg/mL (2 %) injection PRN, Starting on Sun04/09/17 at 0748, Until Sun04/09/17 at 0941, Anesthesia Intra-op, Routine Given 04/09/2017 7:48 AM EST 50 mLs midazolam (PF) (VERSED) 1 mg/mL multi-dose injection Intravenous, PRN, Starting on Sun04/09/17 at 0744, Until Sun04/09/17 at 0941, Sleep, Anesthesia Intra-op, Routine Given 04/09/2017 7:50 AM EST 1 mg Given 04/09/2017 7:44 AM EST 1 mg PHENYLephrine in NS (PF) (DAT-SYNEPHRINE) 0.8 mg/10 mL (80 mcg/mL) multi-dose injection Syrg PRN, Starting on Sun04/09/17 at 0755, Until Sun04/09/17 at 0941, Anesthesia Intra-op, Routine Given 04/09/2017 7:55 AM EST 80 mcg propofol (DIPRIVAN) 10 mg/mL bolus injection (Anesthesia) Intravenous, PRN, Starting on Sun04/09/17 at 0752, Until Sun04/09/17 at 0941, Anesthesia Intra-op Given 04/09/2017 8:35 AM EST 30 mg Given 04/09/2017 7:52 AM EST 30 mg Given 04/09/2017 7:49 AM EST 20 mg propofol (DIPRIVAN) infusion Intravenous, CONTINUOUS PRN, Starting on Sun04/09/17 at 0757, Until Sun04/09/17 at 0941, Anesthesia Intra-op, Routine Rate/Dose Change 04/09/2017 8:59 AM EST 50 mcg/kg/min 22.1 mL/hr Rate/Dose Change 04/09/2017 8:55 AM EST 60 mcg/kg/min 26.5 mL/hr Rate/Dose Change 04/09/2017 8:35 AM EST 75 mcg/kg/min 33.1 mL/hr documented in this encounter Care Teams Pattern Molder Relationship Specialty Start Date End Date Ellie Dumont, BOONE [address] [place] [address] [address] [place] [address] PCP - General Family Medicine 11/27/16 11/11/21 documented as of this encounter
--- OUTSIDE RECORDS SUMMARY | 2023-09-21 00:11 | XMS_ITS | Encounter Summary ---
[place] [address] Care Team Providers Care Surgeon Chief Name Role Phone Ellie Dumont BOONE Primary Care Provider Reason for Visit * Auth/Cert Specialty Diagnoses / Procedures Referred By Uyen stockton Referred To Contact Diagnoses Pain in right hip Unilateral primary osteoarthritis, right hip Osteoarthritis Procedures PRO TOTAL HIP ARTHROPLASTY @TOTAL HIP ARTHROPLASTY, ANTERIOR APPROACH (WRVU 20.72) Referral ID Status Reason Start Date Expiration Date Visits Re quested Visits Authorized [id number] 1 1 Encounter Details Date Type Department Care Team (Late st Contact Info) Description 04/09/2017 7:30 AM EST - 04/09/2017 10:16 AM EST Surgery [place] [address] Trina Claire MD [facility] [place] [address] TOTAL HIP ARTHROPLASTY, ANTERIOR APPROACH (WRVU 19.6) Social History Tobacco Use Types Packs/Day Years [...] Qian Brewer Patient Age: 61 y.o. Language: Tajik Race: White Ethnicity: Not nor Admit date: 04/09/2017 Discharge date and time: 04/10/2017 Attending Physician: Trina Claire MD Discharge Physician: Trina Claire MD Follow-up Recommendations for Providers: See discharge instructions for additional details. Future Appointments Date Time Provider Department Center 04/24/2017 3:00 PM Laura García MD [facility] 05/15/2017 9:00 AM [facility] 05/15/2017 10:10 AM Trina Claire MD [facility] [address] [place] [address] CLIN Inpatient Provider Contact Information: Trina Claire MD Orthopedics: [phone] After hours and weekends, call [facility] Projection Technician, , and have the Orthopedic resident paged. [...] Weight: Wt Readings from Last 1 Encounters: 04/09/ 73.5 kg (162 lb) Height: Ht Readings [...] bowel movement. You can also take an xnwi-qcv-tixefxq medication, Miralax if needed to combat constipation. [...] as much as possible. Call your doctor ([phone]) if you develop: 1. Fever greater than 100.5 2. Severe nausea or vomiting 3. Increasing pain that is not controlled by pain medications 4. Increasing redness, swelling, or drainage from incisions 5. Change in sensation FOLLOW-UP APPOINTMENTS: 1. You will have follow-up appointments at [facility] as indicated below in Future Appointment and Orders. 2. You will need to have x-rays prior to your follow-up appointment. Please come to Radiology, desT, 1 hour BEFORE that appointment for these x-rays. Future Appointments Date Time Provider Department Center 04/24/2017 3:00 PM Laura García MD [facility] Derm [facility] 05/15/2017 9:00 AM [facility] DX ROOM 1 X[facility] 05/15/2017 10:10 AM Trina Claire MD [facility] [place] CLIN If you have questions or concerns: Sunday through Sunday, 8 AM - 5 PM, please call Trina Zheng MD's office at . If it is after 5 PM, the weekend, or holidays, please call and [facility]. Future Appointments and Orders Future Appointments Provider Department Dept Phone 04/24/2017 3:00 PM Laura García MD Dermatology at [facility] [phone] 05/15/2017 9:00 AM [facility] DX ROOM 1 XRay at [place] [phone] Please go to Turning Sander Operator Area 3T ([place] Location). 05/15/2017 10:10 AM Trina Claire MD Orthopaedics at [place] [phone] Primary Care Provider: Ellie Otf Dumont, PHOTOGRAPHIC PRESS SCREWMAKER [phone] Discharge References/Attachments None Click refresh button immediately [...] bowel movement. You can also take an xaor-nlx-odlvrgw medication, Miralax if needed to combat constipation. [...] as much as possible. Call your doctor ([phone]) if you develop: 1. Fever greater than 100.5 2. Severe nausea or vomiting 3. Increasing pain that is not controlled by pain medications 4. Increasing redness, swelling, or drainage from incisions 5. Change in sensation FOLLOW-UP APPOINTMENTS: 1. You will have follow-up appointments at [facility] as indicated below in Future Appointment and Orders. 2. You will need to have x-rays prior to your follow-up appointment. Please come to Radiology, [facility], 1 hour BEFORE that appointment for these x-rays. Future Appointments Date Time Provider Department Center 04/24/2017 3:00 PM Laura García MD [facility] 05/15/2017 9:00 AM [facility] DX ROOM 1 Xray [facility] [...] Sig Dispensed Refills Start Date End Date betamethasone dipropionate (DIPROLENE) 0.05 % OintmentIndications:Srikanth ous stasis dermatitis, unspecified laterality Apply twice daily to rash on legs for two weeks, take a week off, repeat. 45 g 1 01/08/2017 triamcinolone (KENALOG) 0.025 % Ointment apply topically twice a day 0 11/22/2016 amoxicillin (AMOXIL) 500 mg Capsule take 4 [...] stable vitals. PMH: L JOSE MARIA 2002 Activity: WBAT RLE Closure: Monocryl Dressing: Mepilex x7 Anticoagulation: ASA Antibiotics: Ancef Consults: pt/ot Follow-up: below Future Appointments Date Time Provider Department Center 04/24/2017 3:00 PM Laura García MD [facility] 05/15/2017 9:00 AM [facility] DX ROOM 1 Xray [facility] 05/15/2017 10:10 AM Trina Claire MD [facility] [address] [place] [address] CLIN Sharon Sotomayor MD, PGY-1 Orthopaedic Surgery Pager #: [phone] * Meron Diaz RN - 04/09/2017 6:39 [...] support from . Full note to follow. MILANA Hoover/L Pager #[phone] * Carla Shelton RN - 04/09/2017 9:58 AM EST 0934- pt arrived in PACU from OR. Attached to monitors, alarm parameters adjusted to pt and appropriate. Alarms audible. VSS. Dressing on right anterior hip c/d/i with palpable pulses in RLE. Ice pack to hip, SCDs on. Per Danyell, norris with HR mid 40s as long as [...] denies dizziness or lightheadedness. Spoke with Malini SIMPSON, fine with pts HR at this time. [...] cap refill. 1445- Spoke with Светлана SIMPSON, norris with slight swelling since its soft to [...] 24-HOUR UPDATE Qian Brewer was seen in [facility]. No interval events or changes in health [...] Outcome: Ongoing (Interventions Implemented as Appropriate) 04/09/17 2348 Coping/Psychosocial Plan Of Care Reviewed With patient [...] indirect monitoring]: Hourly rounding, call tom in reach, masimo Patient-specific fall prevention interventions for sensory deficits provided, if applicable: N/A CPG GOAL OUTCOME EVALUATION: * Plan of Care - Trina Whitfield PT - 04/09/2017 5:42 PM EST Problem: Patient Care Overview Goal: Plan of Care Review Outcome: Ongoing (Interventions Implemented as Appropriate) 04/09/17 7924 Coping/Psychosocial Plan Of Care Reviewed With patient Physical Therapy Treatment Number PT: 1 Pertinent History of Current Problem: POD#0 right anterior hip. Living Environment Comment: Pt lives in [place], [place] and has a threshold into the [...] Discharge Disposition: home with outpatient services Pager: [phone] TRINA WHITFIELD, PT Inpatient Physical Therapy 2017 PT Evaluation [...] functional level is 20-39% impaired based upon [facility]. * Plan of Care - Sonam [...] hips Living Environment Comment: Pt lives in [place], [place] and has a threshold into the [...] Anticipated Discharge Disposition: home with assist Pager: [phone] SONAM SEVILLA OT Occupational Therapy Rehabilitation Department [...] patient's evaluation including the following functional test(s) [facility] 6 Clicks Daily Activity Form. Current ability measures, co-morbidities and clinical judgment were also used to select the disability modifier. This Patient's current G-Code functional level is 0% impairedbased upon performance on 6 clicks. * Brief Op Note - Karyn Cheek MD - 04/09/2017 9:36 AM EST Brief Operative Note Patient Name: Qian Brewer : [id number] MR#: [id number] Case Date: 04/09/2017 Surgeon: Surgeon(s) and Role: [...] Claire MD - 04/09/2017 9:26 AM EST [facility] [place] Note Patient Name: Qian Brewer : [id number] MR#: [id number] Case Date: 04/09/2017 Surgeon: Surgeon(s) and Role: [...] this had excellent fit.Following copious irrigation, a [employer] [place] acetabular component, 52 mm, was impacted in [...] with antibiotic solution using pulsatile lavage. A [employer] Actis size 6 femoral component was then [...] Referral Routine s/p R anterior JOSE MARIA Daoktah 04/09/17 Ordered: 04/10/2017 documented as of this [...] Neutr Abs (ANC) 6.00 1.70 - 6.10 x10(3)/[facility] LABORATORY Lymphocytes % 15.6 % [facility] Lymphocytes Abs 1.2 0.9 - 3.2 x10(3)/[facility] LABORATORY Monocytes % 8.9 % [facility] Monocyte Abs 0.7 0.3 - 0.9 x10(3)/[facility] LABORATORY Eosinophils % 0.1 % [facility] Eosinophils Abs 0.0 0.0 - 0.4 x10(3)/[facility] LABORATORY Basophils % 0.4 % [facility] Basophils Abs 0.0 0.0 - 0.1 x10(3)/[facility] LABORATORY Immature Gran % 0.20 % [facility] Comment: Immature granulocytes(IG's)percentage and absolute count will include metamyelocytes, myelocytes, and promyelocytes. Blood smears from CBCs yielding IG's will be scanned manually for concordance. If this scan disagrees with the automated IG or if promyelocytes are noted, a manual differential will be performed. Yane Gran Abs 0.02 0.00 - 0.04 x10(3)/[facility] LABORATORY Blood specimen (specimen) 04/10/2017 3:29 AM EST 04/10/2017 4:06 AM EST Narrative Resulting Agency Comment Spec In Lab Karyn Cheek MD HEMATOLOGY ORDERABLE S [facility] [place] [place] [address] * (ABNORMAL) Hemogram (04/10/2017 3:29 AM EST) WBC 8.0 4.0 - 9.5 x10(3)/[facility] LAB[facility] RBC 3.83(L) 4.00 - 5.21 x10(6)/[facility] Hemoglobin 11.4(L) 11.7 - 15.5 gm/dL [facility] Hematocrit 34.7(L) 35.7 - 45.8 % [facility] MCV 90.6 82.6 - 94.[address] [facility] MCH 29.8 27.1 - 32.[address] [facility] MCHC 32.9 31.7 - 35.0 gm/dL [facility] Platelets 200 145 - 357 x10(3)/[facility] LABORATORY RDWSD 42.3 37.0 - 46.0 [facility] RDWCV 12.7 11.5 - 14.1 % [facility] MPV 10.2 7.6 - 12.9 [facility] nRBC % Auto 0.0 % [facility] nRBC Abs Auto 0.000 0.000 - 0.000 x10(3)/[facility] LABORATORY Blood specimen (specimen) 04/10/2017 3:29 AM EST 04/10/2017 4:06 AM EST Narrative Resulting Agency Comment Spec In Lab Karyn B Ham SIMPSON HEMATOLOGY ORDERABLE S Performing Organization Address City/State/[facility] Co de Phone Number [facility] [place] [address] * Basic Metabolic Panel (non-fasting) (04/10/2017 3:29 AM EST) Glucose Lvl 112 65 - 199 mg/dL [facility] Comment:Diabetes: >=200 mg/d L plus symptoms BUN 16 8 - 18 mg/dL [facility] Creatinine 0.77 0.70 - 1.20 mg/dL [facility] Sodium 139 135 - 145 mmol/L [facility] Potassium 4.3 3.5 - 5.0 mmol/L [facility] Comment: Please note: ??Patients with WBC >100,000 may have falsely elevated Potassium levels. ??For accurate Potassium quantification in these patients send serum separator tube (gold top) for subsequent determinations. ??Contact the Clinical Chemistry Laboratory if there are any questions. Chloride 103 98 - 107 mmol/L [facility] CO2 24 22 - 31 mmol/L [facility] Anion Gap 12 5 - 15 mmol/L [facility] Calcium 8.5 8.5 - 10.5 mg/dL [facility] Estimated GFR >60 >=60 [facility] Comment: The reported eGFR should be multiplied by 1.2 for patients. The MDRD is not an appropriate measure of renal function for patients with body mass extremes or in patients with acute kidney failure. http://HiringThing/DHnkdep http://HiringThing/DHMCnkf Blood specimen (specimen) 04/10/2017 3:29 AM EST 04/10/2017 4:06 AM EST Narrative Resulting Agency Comment Spec In Lab Trina Claire MD CHEMISTRY ORDERABLES [facility] [place] [address] * EKG 12 Lead (04/09/2017 11:29 AM EST) Ventricular rate 48 BPM MUSE SYSTEM Atrial Rate 48 BPM MUSE SYSTEM P-R Interval 182 ms MUSE SYSTEM QRS Duration 106 ms MUSE SYSTEM Q-T Interval 470 ms MUSE SYSTEM QTC Calculated (Bezet) 419 ms MUSE SYSTEM Calculated P [place] 51 degrees MUSE SYSTEM Calculated R [place] 46 degrees MUSE SYSTEM Calculated T [place] 44 degrees MUSE SYSTEM INTERPRETATION Marked sinus bradycardia Abnormal ECG When compared with ECG of 13-MAR-2017 10:42, Nonspecific T wave abnormality now evident in Inferior leads Confirmed by MD Mariana, Asim Andujar ([id number]) on 04/09/2017 5:32:50 PM MUSE SYSTEM 04/09/2017 [...] left total hip arthroplasty. Procedure Note Sydney Avtiia MD - 04/09/2017 EXAMINATION: XR PELVIS (GENERIC) [...] IMG FLUORO ORDERABLE S Performing Organization Address City/[facility]/ZIP Co de Phone Number [facility] [place] documented in this encounter Visit Diagnoses Diagnosis s/p R anterior JOSE MARIA Gersonvar 04/09/17- Primary Hip joint replacement by other means Pain in right hip Pain in joint, pelvic region and thigh Primary osteoarthritis of right hip Primary localized osteoarthrosis, pelvic region and thigh s/p R anterior JOSE MARIA Jevsevar 04/09/17 Hip joint replacement by other means Pain in right hip Pain in joint, pelvic region and thigh Primary osteoarthritis of right hip Primary localized osteoarthrosis, pelvic region and thigh documented in this encounter Administered Medications Inactive [...] Given 04/09/2017 8:24 PM EST 81 mg bacitracin injection ONCE PRN, Starting on Sun04/09/17 at 0714, Until Sun04/10/17 at 1116, Intra-Operative (Intra-Procedure), Routine Given 04/09/2017 7:14 AM EST 50,000 Units 19- Surgical Site BUpivacaine (PF) (MARCAINE) 0.25 % (2.5 mg/mL) injection ONCE PRN, Starting on Sun04/09/17 at 0904, Until Sun04/10/17 at 1116, Intra-Operative (Intra-Procedure), Routine Given 04/09/2017 9:04 AM EST 9 mLs 19- Surgical Site celecoxib (CeleBREX) capsule 200 mg 200 mg, Oral, 2 TIMES DAILY, First dose on Sun04/09/17 at 2100, Until Discontinued, Routine Given 04/10/2017 8:02 AM EST 200 mg Given 04/09/2017 8:23 PM EST 200 mg gabapentin (NEURONTIN) capsule 300 mg 300 mg, Oral, NIGHTLY, First dose on 2/21/18 at 2100, Until Discontinued, Routine gabapentin (NEURONTIN) capsule 600 mg 600 mg, Oral, NIGHTLY, 2 doses, First dose on Sun04/09/17 at 2100, Last dose on Sun04/10/17 at 2100, Routine Given 04/09/2017 8:24 PM EST 600 mg pantoprazole (PROTONIX) tablet 20 mg 20 [...] Carla Shelton RN)2158 (Given - Provider: Felipa Grace RN) 0532 (Given - Provider: Felipa Grace RN) aspirin EC tablet 81 mg 81 mg, [...] Carla Shelton RN)1212 (Stopped - Provider: Carla Shelton RN)2020 (New Bag - Provider: Felipa Grace RN)2050 (Stopped - Provider: Felipa Grace RN) 0306 [...] Diaz RN) 0803 (Given - Provider: Selene Cotton, RONALD) gabapentin (NEURONTIN) capsule 300 mg (COMPLETED) 300 mg, Oral, ONCE, 1 dose, On Sun04/09/17 at 0615, Administer on arrival in Same Day Program, Day of Surgery (Day of Procedure), Routine 0634 (Given - Provider: Ese Velasco RN) gabapentin [...] Routine 1038 (Given - Provider: Carla Shelton RN)2025 (Given - Provider: Felipa Grace RN) 0306 [...] on Sun04/09/17 at 2100, Until Discontinued, Routine 2100 (Not Given - Provider: Felipa Grace RN - Reason: Patient/family refused) 08 (Not Given - Provider: Selene Cotton RN - Reason: Patient/family refused) senna-docusate (PERICOLACE) 8.6-50 mg per tablet 2 tablet 2 tablet, Oral, 2 TIMES DAILY, First dose on Sun04/09/17 at 2100, Until Discontinued, Routine 2023 (Given - Provider: Felipa Grace RN) 08 (Given - Provider: Selene Cotton RN) sodium [...] Procedure) 0615 (New Bag - Provider: Ese Vealsco RN)0730 (New Bag - Provider: Dot Child CRNA)0939 (Stopped - Provider: Dot Child CRNA) sodium chloride 0.9% infusion 1,000 mL, at 100 mL/hr, Intravenous, CONTINUOUS, Starting on Sun04/09/17 at 1000, Until Sun04/10/17 at 1116, Recovery (Recovery-Hospital Unit) 1004 (New [...] at 1556, Until Sun04/10/17 at 1116, Constipation, DO NOT CRUSH OR [...] of Procedure), Routine 06 (Given - Provider: Myron Velasco RN) lidocaine [...] Day of Surgery (Day of Procedure), Routine 07 (Given - Provider: Myron Velasco RN)07 (Given - Provider: Ese Velasco RN) sodium chloride 0.9 % flush 5-20 mL [...] Routine documented in this encounter Care Teams Surgeon Chief Relationship Specialty Start Date End Date Ellie Dumont APRN [address] [place] [address] [address] [facility] [address] [place] [address] PCP - General Family Medicine 11/27/16 11/11/21 documented as of this encounter
--- OUTSIDE RECORDS SUMMARY | 2023-09-21 00:11 | XMS_ITS | Encounter Summary ---
Author Organization [facility] Address [facility] [place] [address] Care Team Providers Care Hydroblaster Name Role Phone Ellie Dumont BOONE Primary Care Provider Encounter Details Date Type Department Care Team (Latest Contact Info) Description 05/15/2017 8:45 AM EDT - 05/15/2017 11:59 PM EDT Hospital Encounter XRay at [address] [place] [address] Peter Claire MD [facility] [place] [address] s/p R anterior JOSE MARIA Dakotah 04/09/17 [...] on file documented as of this encounter Medications at Time of Discharge [...] 1 hour PRIOR TO SURGERY 0 09/28/2016 naproxen (EC NAPROSYN) 500 mg Tablet, Delayed Release (E.C.) Take 1 tablet by mouth 2 times daily (with meals) for 41 days. 82 tablet 04/10/2017 05/21/2017 senna-docusate (PERICOLACE) 8.6-50 mg Tablet Take 2 [...] 04/10/2017 10/15/2018 documented as of this encounter Plan of Treatment Not on file documented as of this encounter Procedures Procedure Name Priority Date/Time Associated Diagnosis Comments XR PELVIS AND LAT HIP RIGHT Routine 05/15/2017 9:21 AM EDT s/p R anterior JOSE MARIA Jevsevar 04/09/17 documented in this encounter Results * XR Pelvis & [...] Diagnoses Diagnosis s/p R anterior JOSE MARIA Dakotah 04/09/17 Hip joint replacement by other means documented in this encounter Care Teams Hydroblaster Relationship Specialty Start Date End Date Ellie Dumont APRN [address] [place] [address] PCP - General Family Medicine 11/27/16 11/11/21 documented as of this encounter
--- OUTSIDE RECORDS SUMMARY | 2023-09-21 00:11 | XMS_ITS | Encounter Summary ---
Author Organization [facility] Address [facility] [place] [address] Care Team Providers Care Mastic Sprayer Name Role Phone None Primary Care Provider Unavailabl e Encounter Details Date Type Department Care Team (Latest Contact Info) Description 10/31/2016 7:29 AM EDT - 10/31/2016 11:59 PM EDT Hospital Encounter XRay at [address] [place] [address] Peter Claire MD [facility] [place] [address] Right hip pain Discharge Disposition: Home Social History Tobacco Use [...] Sig Dispensed Refills Start Date End Date amoxicillin (AMOXIL) 500 mg Capsule take 4 [...] Date/Time Associated Diagnosis Comments XR PELVIS AND HIP 2 VIEWS RIGHT Routine 10/31/2016 7:51 AM EDT Right hip pain documented in this encounter Results * XR Pelvis w AP & Lat Hip Right (10/31/2016 7:51 AM EDT) Anatomical Region Laterality Modality Pelvis, Hip Right Digital Radiogra phy Impressions 10/31/2016 9:17 AM EDT Progressed severe degenerative arthrosis of the right hip. Narrative 10/31/2016 9:17 AM EDT EXAMINATION: XR PELVIS W AP AND LAT HIP RIGHT CLINICAL HISTORY: right hip pain TECHNIQUE: AP pelvis and AP and lateral views of the right hip. COMPARISON: February 17, 2008. FINDINGS: There has been interval progression of severe degenerative arthrosis of the right hip. Severe superolateral joint space narrowing with eburnation and subchondral cystic change as well as marginal osteophyte formation is noted. A left total hip arthroplasty is grossly stable in appearance from the previous study without evidence of new hardware complication. Procedure Note Randy Hale MD - 10/31/2016 EXAMINATION: XR PELVIS W AP AND LAT HIP RIGHT CLINICAL HISTORY: right hip pain TECHNIQUE: AP pelvis and AP and lateral views of the right hip. COMPARISON: February 17, 2008. FINDINGS: There has been interval progression of severe degenerative arthrosis ofthe right hip. Severe superolateral joint space narrowing with eburnationand subchondral cystic change as well as marginal osteophyte formation isnoted. A left total hip arthroplasty is grossly stable in appearance from theprevious study without evidence of new hardware complication. IMPRESSION Progressed severe degenerative arthrosis of the right hip. Peter Claire MD IMG DX ORDERABLES documented in this encounter Visit Diagnoses Diagnosis Right hip pain Pain in joint, pelvic region and thigh documented in this encounter Care Teams Mastic Sprayer Relationship Specialty Start Date End Date None None PCP - General 10/31/16 11/26/16 documented as of this encounter
--- OUTSIDE RECORDS SUMMARY | 2023-09-21 00:11 | XMS_ITS | Encounter Summary ---
Author Organization [facility] Address [facility] [place] [address] Care Team Providers Care Permit Coordinator Name Role Phone Ellie Dumont APRN Primary Care Provider Reason for Visit * Reason Comments Psoriasis Eczema * Consultation (Routine) - Closed Specialty Diagnoses / Procedures Referred By Uyen stockton Referred To Contact Dermatology Diagnoses Psoriasis, Eczema Ellie Dumont APRN [address] [place] [address] [facility] Dermatology [address] [place] [address] Referral ID Status Reason Start Date Expiration Date V isits Requested Visits Authorized [id number] Closed Consult, Test & Treat [facility] 11/27/2016 11/27/2017 1 1 Encounter Details Date Type Department Care Team (Late st Contact Info) Description 01/08/2017 9:00 AM EST Office Visit Dermatology at [facility] [address] [place] [address] Laura García MD [facility] [address] [address] Venous stasis dermatitis, unspecified laterality (Primary Dx) Social History Tobacco Use Types Packs/Day Years Used Date Smoking Tobacco: Never Smokeless Tobacco: Never Alcohol Use Standard Drinks/Week Comments Yes 2.5 (1 standard drink = 0.6 oz p ure alcohol) Sex and Gender Information Value Date Recorded Sex Assigned at Not on file Gender Identity Not on file Sexual Orientation Not on file documented as of this encounter Progress Notes * Laura García MD - 01/08/2017 9:00 AM EST DERMATOLOGY - NEW PATIENT NOTE Date of service: 01/08/2017 Qian Brewer : 1955, 61 y.o. CC: Rash on the legs. HPI: Qian Brewer is a 61 y.o. female referred by Ellie Dumont with the following concerns: Rash on the legs present for many years, >5yrs. Rashes on the lower legs, behind the ankles, andshins. Itches initially, pt would scratch it which would lead to bleeding. Reports that her legs generally get pretty swollen. Doesn't wear compression stockings. ROS was negative for a systemic cause of swollen legs. PCP prescribed triamcinolone ointment BID for 2 months, which has helped significant w the itch. Relevant Skin History: - Skin cancer (including type): no Family History: Melanoma: no Relevant Social History: - Sales Medications: Current Outpatient Prescriptions Medication Sig Dispense Refill ??? triamcinolone (KENALOG) 0.025 % Ointment apply topically twice a day 0 ??? amoxicillin (AMOXIL) 500 mg Capsule take 4 capsules by mouth 1 hour PRIOR TO SURGERY 0 No current facility-administered medications for this visit. Allergies: No Known Allergies Review of Systems: - General: Feels well. A thorough review of system was performed. Denies unintentional weight loss,fever, night sweats, chest pain/palpitation, diarrhea, N/V, hematochezia/melena, dysuria/hematuria. - Skin: No other skin concerns. Examination: - Constitutional: Patient was alert, well-appearing and in no noticeable distress. - Skin: Focused exam of the lower legs. A female publisher assistant was present and on standby during my examination. Diagnosis/Skin findings/Assessment/Plan: 1. Eczematous and lichenified plaques in the setting of stasis dermatitis: Right mtata and R calf: Eczematous plaques with white pustules and lichenified plaques on the R posterior ankle. Eczematous plaque on the L proximal matta. -Counseled: stasis dermatitis, a/w venous stasis/DVT, chronic and recurrent course, risks for secondary infection and lipodermatoclerosis, prevention by reduction of swelling with JOSHUA hose during waking hours/elevate lower extremities above heart 1h at bedtime, regular walks and treatment of symptoms with topical steroids, moisturization. -Rx: Betamethasone 0.05% ointment BID for two weeks, take a week off. Repeat. - discussed w/ pt the side effects of topical steroids, which include atrophy of the skin, tachyphylaxis, allergic reactions, and rarely systemic effects - pt instructed NOT to apply to the face nor intertriginous areas unless instructed to do so. - pt instructed not to use it for more than allotted duration, given the risk of side effects with longer duration of use. -Bleach baths 2-3 x per week to reduce impetiginization risk -JOSHUA 15-20mmHg, knee high hose during waking hours Emphasized the importance of compression stockings -Vaseline to the legs. RTC: 4 weeks. Note initiated by STEPHANIE GRACE LPN. I am documenting this encounter acting as the scribe for and inthe presence of Laura García MD: I performed the above scribed service and agree with the accuracy of the documentation in this encounter. Reviewed and signed by Laura García MD Resident in Dermatology [facility] Staff emergency department manager: Nataly Ely MD Section of Dermatology [facility] * Nataly Ely MD - 01/08/2017 9:00 AM EST I directly supervised Dr. García in the care of this patient. I saw and evaluated this patient with Dr. García. He presented the history and physical exam details to me, then we saw the patient together and I confirmed these findings. I agree with details as written. My physical examination confirms Dr. García's findings. The assessment and plan were formulated in discussion with me at the time of visit and I agree withthem as documented. NATLAY ELY MD [facility] Staff Physician documented in this encounter Plan of Treatment Not on file documented as of this encounter Visit Diagnoses Diagnosis Venous stasis dermatitis, unspecified laterality- Primary documented in this encounter Care Teams Permit Coordinator Relationship Specialty Start Date End Date Ellie Dumont, PARKING LOT ATTENDANT [address] [place] [address] PCP - General Family Medicine 11/27/16 11/11/21 documented as of this encounter
--- OUTSIDE RECORDS SUMMARY | 2023-09-21 00:11 | XMS_ITS | Encounter Summary ---
Author Organization [facility] [place] [address] Care Team Providers Care Typing Element Machine Operator Name Role Phone Ellie Dumont BOONE Primary Care Provider Reason for Visit * Reason Comments Follow-up RIGHT ANT JOSE MARIA 8 Encounter Details Date Type Department Care Team (Late st Contact Info) Description 05/15/2017 10:10 AM EDT Office [place] [id number] Peter Claire MD [facility] DR OR[place]OPA[place] [address] History of total hip arthroplasty, right Social History Tobacco Use Types Packs/Day Years [...] Sign Reading Time Taken Comments Blood Pressure 129/72 05/15/2017 10:01 AM EDT Pulse 69 05/15/2017 10:01 AM EDT Temperature - - Respiratory Rate - - Oxygen Saturation - - Inhaled Oxygen Concentration - - Weight 70.3 kg (155 lb) 05/15/2017 10:01 AM EDT stated Height 170.2 cm (5' 7) 05/15/2017 10:01 AM EDT stated Body Mass Index 24.28 05/15/2017 10:01 AM EDT documented in this encounter Progress Notes * Joshua Miller - 05/15/2017 10:10 AM EDT Arthroplasty/Orthopaedic History: 1. R DAA JOSE MARIA, Jevsevar HPI: Qian Brewer is a very pleasant 61 y.o. year-old female and is now 5 week post right total hip replacement The patient has been doing well. The patient is not having any pain.. No fevers, chills, nausea, vomiting, or symptoms of infection. Qian has been ambulating with no assistive device. She is not taking narcotic pain medicine. Anticoagulation status ASA 81mg BID for 30 days discussed stop date ROS: Denies: fever, chills, night sweats, nausea, or vomiting BP 129/72 (BP Location (NBP): Right arm, Patient Position: Sitting, BP Cuff Sizes: Adult (25-34 cm)) Pulse 69 Ht 170.2 cm (5' 7) Comment: stated Wt 70.3 kg (155 lb) Comment: stated BMI 24.28kg/m2 Physical Exam: Well-appearing female in no acute distress. Alert and Oriented x 3 and answers all questions appropriately. The incision is well healed, with no signs of infection. Hip Exam: Right Leg length: Longer leg: right Limb Length discrepancy: 2mm Motion: Flexion contracture: 0 Total degrees of Flexion:110 Total degrees of Abduction:45 Total degrees of Ext Rotation: 30 Total degrees of Internal Rotation: 10 Gait Abnormality: Normal Pulses Palpable: Right PT: Yes Right DP:Yes Motor/Sensory: Right Distal Motor: Normal Distal Sensory: Normal Hip Abductors 5 X-RAYS: Multiple radiographic views were obtained at my request and reviewed with the patient. X-rays show a well-placed prosthesis with no evidence of fracture, subsidence, loosening, or periprosthetic complication. Questionnaire Responses: [facility] Surgical Postop Visit 05/15/2017 PROMIS-10 General Health Very Good PROMIS-10 Quality of Life Very Good PROMIS-10 Physical Health Very Good PROMIS-10 Mental Health Very Good PROMIS-10 Social Activity Very Good PROMIS-10 Everyday Activities Mostly PROMIS-10 Pain 0 -No Pain PROMIS-10 Fatigue None PROMIS-10 Social Roles Very Good PROMIS-10 Anxious or Depressed Never PROMIS PHYSICAL HEALTH SCORE 57.7 PROMIS MENTAL HEALTH SCORE 56 HOOS JR Scores 92.34 KOOS JR Scores - Problems with surgical incision/wound after surgery No Gone to ER since knee surgery No Admitted to hospital since recent ortho surgery No Additional surgery on same body part No TKA Grade - JOSE MARIA Grade 8 Pain in other HIP Mild Back pain at this moment None Satisfaction with Treatment Satisfied Choose Same Treatment Again Definitely yes [facility] Response 05/15/2017 HOOS JR Scores 92.34 KOOS JR Scores - Spine [facility] Response 05/15/2017 HOOS JR Scores 92.34 KOOS JR Scores - ASSESSMENT/PLAN: Ms. Brewer is a 61 y.o. year old female status post right total hip replacement Doing well postoperatively. Continue weightbearing as tolerated and working on range of motion. We will see her back in 1 years for repeat examination. X-rays will be needed at that time. Patient may return to normal activities as her pain and function allow. We discussed the appropriate precautions surrounding dental prophylaxis; according to the AAOS Appropriate Use Criteria we do not recommend antibiotic use prior to dental procedures for Qian. If Qian has any changes in health status we recommend she contact our office prior to dental procedures for updated recommendations All questions were answered. Signed: JOSHUA MILLER MD 05/15/2017 * Peter Claire MD - 05/15/2017 10:10 AM EDT I performed a history and physical examination of the patient and discussed the management plan with Dr. Miller. I also discussed the different treatment options, as well as the risks and benefits of each with the patient and questions were answered. I reviewed the note and agree with the documented findings and plan of care. Peter Claire MD, LORENZO documented in this encounter Plan of Treatment Not on file documented as of this encounter Visit Diagnoses Diagnosis History of total hip arthroplasty, right documented in this encounter Care Teams Typing Element Machine Operator Relationship Specialty Start Date End Date Ellie Dumont APRN [address] [place] [address] [address] [place] [address] PCP - General Family Medicine 11/27/16 11/11/21 documented as of this encounter
--- OUTSIDE RECORDS SUMMARY | 2023-09-21 00:11 | XMS_ITS | Encounter Summary ---
Author Organization [facility] [place] [address] Care Team Providers Care French Binder Name Role Phone Ellie Dumont BOONE Primary Care Provider [phone] Reason for Referral * Physical Therapy (Routine) - Specialty Diagnoses / Procedures Referred By Uyen stockton Referred To Contact Physical Therapy Diagnoses Arthritis of right hip Peter Claire MD [facility] [place] [address] Referral ID Status Reason Start Date Expiration Date V isits Requested Visits Authorized [id number] Evaluate and Treat 03/14/2017 09/10/2017 20 20 Encounter Details Date Type Department Care Team (Late st Contact Info) Description 03/14/2017 Orders [place] [address] Peter Claire MD [facility] [place] [address] Arthritis of right hip Social History Tobacco Use [...] as of this encounter Plan of Treatment Scheduled Referrals Name Type Priority Associated Diagnoses Orde r Schedule Referral to Physical Therapy Outpatient Referral Routine Arthritis of right hip Ordered: 03/14/2017 documented as of this encounter Visit Diagnoses Diagnosis Arthritis of right hip documented in this encounter Care Teams French Binder Relationship Specialty Start Date End Date Ellie Dumont APRN [address] [place] [address] PCP - General Family Medicine 11/27/16 11/11/21 documented as of this encounter
--- OUTSIDE RECORDS SUMMARY | 2023-09-21 00:11 | XMS_ITS | Encounter Summary ---
Author Organization [facility] Address [facility] [place] [address] Care Team Providers Care Wire Brush Operator Name Role Phone Ellie Dumont BOONE Primary Care Provider [phone] Encounter Details Date Type Department Care Team (Latest Contact Info) Description 10/15/2018 8:23 AM EDT - 10/15/2018 11:59 PM EDT Hospital Encounter XRay at [address] [place] [address] Peter Claire MD [facility] [place] [address] Hx of total hip arthroplasty, right Discharge Disposition: Home Social History Tobacco Use [...] 0 11/22/2016 betamethasone dipropionate (DIPROLENE) 0.05 % OintmentIndications:Venou s stasis dermatitis, unspecified laterality Apply twice daily to rash on legs for two weeks, take a week off, repeat. 45 g 1 01/08/2017 amoxicillin (AMOXIL) 500 mg Capsule take 4 capsules by mouth 1 hour PRIOR TO SURGERY 0 09/28/2016 documented as of this encounter Plan of Treatment Not on file documented as of this encounter Procedures Procedure Name Priority Date/Time Associated Diagnosis Comments XR PELVIS AND HIP 2 VIEWS RIGHT Routine 10/15/2018 8:34 AM EDT Hx of total hip arthroplasty, right documented in this encounter Results * XR Pelvis and Hip 2 Views Right (10/15/2018 8:34 AM EDT) Anatomical Region Laterality Modality Pelvis, Hip Right Digital Radiogra phy Impressions 10/15/2018 11:53 AM EDT Bilateral JOSE MARIA without evidence of complication. I have personally reviewed the image(s) and the residents interpretation and agree with the findings, Manuela Mckeon at 10/15/2018 11:53 AM Thank you for letting us participate in the care of this patient. For questions regarding this report, please contact the number below. ? Electronically signed by: Manuela Mckeon [facility] ([phone]), at 10/15/2018 11:53 AM Narrative 10/15/2018 11:53 AM EDT EXAMINATION: XR PELVIS AND HIP 2 VIEWS RIGHT CLINICAL HISTORY: Status post right total hip arthroplasty TECHNIQUE: AP radiograph of the pelvis with AP and lateral radiographs of the right hip. COMPARISON: 05/15/2017 hip radiographs. FINDINGS: Bilateral total hip arthroplasties. No periprosthetic fracture or lucency. No evidence of subsidence. Procedure Note Manuela Mckeon MD - 10/15/2018 EXAMINATION: XR PELVIS AND HIP 2 VIEWS RIGHT CLINICAL HISTORY: Status post right total hip arthroplasty TECHNIQUE: AP radiograph of the pelvis with AP and lateral radiographs of the righthip. COMPARISON: 05/15/2017 hip radiographs. FINDINGS: Bilateral total hip arthroplasties. No periprosthetic fracture or lucency.No evidence of subsidence. IMPRESSION Bilateral JOSE MARIA without evidence of complication. I have personally reviewed the image(s) and the residents interpretationand agree with the findings, Manuela Mckeon at 10/15/2018 11:53 AM Thank you for letting us participate in the care of this patient. Forquestions regarding this report, please contact the number below. Electronically signed by: Manuela Mckeon [facility] ([phone]),at 10/15/2018 11:53 AM Peter Claire MD IMG DX ORDERABLES documented in this encounter Visit Diagnoses Diagnosis Hx of total hip arthroplasty, right documented in this encounter Care Teams Wire Brush Operator Relationship Specialty Start Date End Date Ellie Dumont APRN [address] [place] [address] PCP - General Family Medicine 11/27/16 11/11/21 documented as of this encounter
--- OUTSIDE RECORDS SUMMARY | 2023-09-21 00:11 | XMS_ITS | Encounter Summary ---
Author Organization [facility] Address [facility] [place] [address] Care Team Providers Care Developer Support Engineer Name Role Phone Ellie Dumont BOONE Primary Care Provider Reason for Visit * Reason Comments Right Hip Pain pre-op visit for RIG HT JOSE MARIA ANT Encounter Details Date Type Department Care Team (Latest Contact Info) Description 04/03/2017 11:00 AM EST Office [place] [address] Peter Claire MD [facility] [address] [place] [address] Primary osteoarthritis of right hip; Hip pain, right Social History Tobacco Use Types Packs/Day [...] Sign Reading Time Taken Comments Blood Pressure 152/71 04/03/2017 11:23 AM EST Pulse 78 04/03/2017 11:23 AM EST Temperature - - Respiratory Rate - - Oxygen Saturation - - Inhaled Oxygen Concentration - - Weight 73.5 kg (162 lb) 04/03/2017 11:23 AM EST clothed Height 172.7 cm (5' 8) 04/03/2017 11:23 AM EST in shoes Body Mass Index 24.63 04/03/2017 11:23 AM EST documented in this encounter Progress Notes * Peter Claire MD - 04/03/2017 11:00 AM EST Arthroplasty History/Previous Hip Surgery: 1. LEFT JOSE MARIA 05/07/2007 Dr. King This note is recorded by Deirdre Macdonald RN acting as a scribe for Dr. Rachel Claire. PREOPERATIVE VISIT Interval History: Qian Brewer is a pleasant 61 y.o. year old female with severe osteoarthritis of the hip beingseen today to discuss a RIGHT total hip arthroplasty. Her history and physical exam were reviewed in detail. Her history in regards to her hip was once again discussed and is outlined in a previous note. She states the hip pain and disability is unchanged since their previous visit. They have reviewed theiroptions and at this point are expressing a desire to proceed with surgery. She does not endorse a history of DVT/PE or clotting Physical Exam: Exam is previously documented in my note and is essentially unchanged. Clinical Leg Length Discrepancy - 0 cm Inspection of her skin in the intertriginous groin fold on the operative side demonstrates No skin breakdown. Significant Medical Comorbidities Patient Active Problem List Diagnosis Code ??? Pelvic mass R19.00 ??? Arthritis of right hip M16.11 ??? S/P left JOSE MARIA 05/06/2012 Dr. King Z96.642 VITALS: BP Readings from Last 1 Encounters: 04/03/17 152/71 Pulse Readings from Last 1 Encounters: 04/03/17 78 Height: 172.7 cm (5' 8) (in shoes) Weight: 73.5 kg (162 lb) (clothed) Body mass index is 24.63 kg/(m^2). Relevant Lab Studies Lab Results Component Value Date WBC 5.4 03/13/2017 HGB 13.1 03/13/2017 HCT 40.0 03/13/2017 PLATELET 253 03/13/2017 CREATININE 0.71 03/13/2017 BUN 18 03/13/2017 NA 142 03/13/2017 K 4.1 03/13/2017 Estimated Creatinine Clearance: 87.7 mL/min (based on Cr of 0.71). ?? EKG (image reviewed): normal EKG, normal sinus rhythm. ?? Xray pelvis and right hip - severe OA Blood Type: A Neg Questionnaire Response [facility] Surgical Preop Visit 04/03/2017 PROMIS-10 General Health Very Good PROMIS-10 Quality of Life Very Good PROMIS-10 Physical Health Very Good PROMIS-10 Mental Health Very Good PROMIS-10 Social Activity Very Good PROMIS-10 Everyday Activities Completely PROMIS-10 Pain 3 PROMIS-10 Fatigue None PROMIS-10 Social Roles Good PROMIS-10 Anxious or Depressed Never PROMIS PHYSICAL SCORE (range 16-68) 57.7 PROMIS MENTAL SCORE (range 21-68) 56 Treatments Tried Regular exercise, Over the counter anti-inflammatory drugs (e.g Advil, Aspirin, Aleve), Prior surgery for this problem Prior Surgery hip replacement - left hip 2004 HOOS JR Scores 73.47 KOOS JR Scores - TKA Grade - JOSE MARIA Grade 5 Health Literacy Extremely Orthopeadics [facility] Response 04/03/2017 HOOS JR Scores 73.47 KOOS JR Scores - Spine [facility] Response 04/03/2017 HOOS JR Scores 73.47 KOOS JR Scores - Radiographic evidence of joint damage: [0= normal; 1=minimal ; 2= some osteophytes , some narrowing ; 3= moderate osteophytes, significantnarrowing, mild deformity; 4= large osteophytes, marked narrowing, obvious deformity]: 4= large osteophytes, marked narrowing, obvious deformity Assessment and Plan: This is a pleasant 61 y.o. year-old female who presents for a preoperative appointment today for RIGHT hip OA. I had a long discussion with her regarding the risks and benefits of total hip arthroplasty. I indicated that in my opinion, this is the treatment option most likely to restore a more normal, pain-free level of function and that we have exhausted reasonable non-operative alternatives. I used total hip implants to demonstrate how I perform the procedure and all of their questions were answered. Ms. Brewer expressed a desire to pursue this option. We then discussed in great detail the risks associated with the proposed surgery. These included but were not limited to: bleeding (which may or may not require transfusion), infection, deep venous thrombosis, pulmonary embolus, prosthetic failure, loosening, prosthetic fracture, femur or pelvic fracture, dislocation, leg-length inequality, persistent pain, need for revision, medical complications (including cardiac, respiratory and neurologic complications), anaesthetic complications, and . The patient seemed to understand the nature of this procedure's risks. We also discussed the likely benefit of improved stride length, improved range of motion, decreasedpain, decreased need for pain medications and decrease functional limitations. The patient is awarethat it would take on average 2 days in the hospital, followed by approximately 12-18 months to full rehabilitation. The patient was seen and evaluated by Dr. David Rice, our Orthopaedic bilingual kindergarten teacher, to help with perioperative optimization and he felt that it was appropriate to proceed with surgery. I reviewedthe labs and did not identify anything that would warrant surgical delay. We discussed DNR status and she is a Full Code We reviewed options for postoperative DVT prophylaxis, based on AAOS guidelines. We discussed the pros and cons of different anticoagulants in terms of effectiveness and clot / embolus preventions vs. risks of bleeding and wound complications. We also reviewed their preferences regarding use of blood products and confirmed that while we would endeavor to minimize the risks of needing any transfusions, if circumstances were such that one ormore were indeed required, she would NOT refuse a blood transfusion. No flowsheet data found. Qian Brewer will be prescribed a prescription opioid for the treatment of acute post-operative pain related to Orthopedic surgery. Qian Brewer will be advised to take the smallest dose possible to control their pain and as their pain improves to take smaller doses and increase the time between doses. In addition to this medication, non-opioid medications will be prescribed for adjunct treatment of their pain. Non-pharmacological treatment such as ice, elevation and activity modification will be recommended as appropriate. The Acute Opioid Therapy Informed Consent form has been completed and sent to medical records for scanning to chart. We discussed with them the possible discharge scenarios including going home versus needing to go to a rehab facility depending on how well their mobility progresses post-operatively. TJA Clotting and Bleeding Assessment Genetic predisposition or history of DVT or PE: No Hypercoaguable state?: No History of bleeding disorder?: No GI bleed or history of hemorrhagic stroke within the past 2 years: No Patient on lifelong anticoagulant for other reasons: No Discharge anticoagulation plan: ASA 81mg BID for 30 days Infection Prevention Patient demonstrated appropriate skin integrity/infection knowledge level after instructions provided: Yes Patient demonstrated appropriate dental prophylaxis knowledge level after instructions provided: Yes Patient demonstrated appropriate understanding of pre-op chlorhexideine wash and mupirocin ointmentuse after instructions provided: Yes General Assessment Total joint preparedness for surgery: Received binder, 1:1 Patient understands when to call the office pre-op and post-op: Verbalizes understanding Assistive device(s) used pre-op: None Patient currently on narcotics: No Patient has narcotic agreement signed: No Prep for Surgery Advance Directive: Would like to complete at another time Recommend referral to Patient Financial Services: No Living arrangement: House Home layout: Two level, Stairs to enter w/ rails, Able to live on main level Number of stairs within home: 0 Who will provide post-op care and support: Her retired, partner Darek Who will provide transportation home: Darek Patient's desired discharge disposition: Home with OP PT Top 3 nursing choice facilities: No selection VNA preference: No selection Outpatient PT preference: [facility] [place] [place] Discharge barriers and challenges: None Any remaining questions were solicited from the patient and answered. Ms. Brewer wishes to proceedaccordingly and informed consent was subsequently obtained for a RIGHT total hip arthroplasty. We discussed using Celebrex while in house. We discussed using Naprosyn for 6 weeks after surgery for post-operative pain management. I ensured that the patient has the needed samples of hibiclens wash to use both the night before and the morning of the anticipated surgery. I have personally evaluated the patient and agree with the above note as recorded by Deirdre Macdonald RN. Rachel Claire MD 04/03/2017 documented in this encounter Plan of Treatment Not on file documented as of this encounter Visit Diagnoses Diagnosis Primary osteoarthritis of right hip Primary localized osteoarthrosis, pelvic region and thigh Hip pain, right Pain in joint, pelvic region and thigh documented in this encounter Care Teams Developer Support Engineer Relationship Specialty Start Date End Date Ellie Dumont APRN [address] [place] [address] PCP - General Family Medicine 11/27/16 11/11/21 documented as of this encounter
--- OUTSIDE RECORDS SUMMARY | 2023-09-21 00:11 | XMS_ITS | Encounter Summary ---
[place] [address] Care Team Providers Care Side Stapler Name Role Phone Ellie Dumont BOONE Primary Care Provider Encounter Details Date Type Department Care Team (Late st Contact Info) Description 03/13/2017 11:30 AM EST Notes [place] [address] Social History Tobacco Use Types Packs/Day Years Used Date Smoking Tobacco: Never Smokeless Tobacco: Never Alcohol Use Standard Drinks/Week Comments Yes 10 (1 standard drink = 0.6 oz pu re alcohol) Sex and Gender Information Value Date Recorded Sex Assigned at Not on file Gender Identity Not on file Sexual Orientation Not on file documented as of this encounter Progress Notes * Imani Do - 03/13/2017 11:30 AM EST Office of Care Management Initial Assessment Imani Do reviewed record and discussed patient with Care Team. Source of Information: Qian Brewer Introduced self/reviewed role; services accepted. Reason for Hospitalization: Primary OA right hip. Right JOSE MARIA on 04/09/[address] Peter Claire. No past medical history on file. Hospitalizations Within the Past 30 Days: Anticipated Length Of Stay (If known): Current Decision-Making Capacity: She is capable of making her own medical decisions. Advance Care Planning: We discussed what an ADV DIR is and its purpose thereof. Current Coping/Education/Information Needs: She understand the hospital course and discharge plans. Current Functional Ability: Functional Status Prior to Admission: She ambulates independently without an assistive device. She is able to do her ADL without assistance. She is able to drive. She is able to do her own cooking, cleaning, shopping. She works full- time in sales. She travels a lot. Home Environment: She lives in a 2 level house. There are no stairs in. Her bedroom is on the main level. She has a tub shower. There is 1 grab bar on the inside. She does not have shower chair. She has a standard height toilet. She has a toilet seat riser without railings. Social & Family Supports/Community Resources: Her primary caregiver is going to be her retired partner Darek. Behavioral Health History: None Substance Use/Abuse: None Other Pertinent/Service Specific Information: I discussed with the patient the potential avenues ofdischarge postoperatively. We discussed qualifications to go to a long-term facility. We discussed potential out of pocket costs associated with non-emergent wheelchair van and ambulance transportation.We discussed the purpose and services provided by [facility]. If patient opts to go to outpatient physical therapy post-op, they are responsible for scheduling their initial and subsequent appointments. I communicated that we will not know until after surgery what will be the best course of discharge for the patient based on medical necessity and that this is why we plan for different courses of discharge. I informed the patient that they will be working with a manager medicare marketing after surgery to facilitate the discharge plan. I encouraged the patient to call with any questions or concerns prior to the surgery as well as when they discharge home. Health/Prescription Coverage: Primary Insurance: [employer] [place] Secondary Insurance: N/A Prescription Coverage: [facility] Rx Preferred Pharmacy: [facility] [place] [phone] Other: None Primary Care Provider: Ellie Dumont, BOONE [phone] Patient/Caregiver Goals of Treatment: She wants to do everything without pain. She will be working from home until she can travel again. She sets her computer on a raised table and raised seat. She is excited that she will be able to sit in a 90 degree angle after surgery versus after the hip replacement 12 years ago. She wants to get back into a more active lifestyle. She wants to be able to go up and downstairs without pain. Potential Needs for Transition of Care: Rehab/SNF: No selection Home Health: No selection OP PT: [facility] [address] [place] [address] , A referral has been sent. DME: She has a pair of crutches. She prefers not to use a walker. Dialysis: No Community Resources: None Transportation: We discussed that since we cannot determine the exact day or time of discharge, transportation must be readily available at time of discharge. Transportation will be provided by Darek. Other: None Anticipated Barriers to Discharge/Special Considerations: She is planning a trip to the [facility] from 04/28-05/12. She requested, if possible, to have her post-op hospital check moved from 05/08 to 05/15.I let her know I would look into this for her. Plan: She prefers to d/c home with OP PT at [facility]. A member of the Care Management team will continue to monitor progress, follow for continuity of care and assist with transition of care planning. Imani Do Pager: [phone] documented in this encounter Plan of Treatment Not on file documented as of this encounter Visit Diagnoses Not on filedocumented in this encounter Care Teams Side Stapler Relationship Specialty Start Date End Date Ellie Dumont APRN [address] [place] [id number] PCP - General Family Medicine 11/27/16 11/11/21 documented as of this encounter
--- OUTSIDE RECORDS SUMMARY | 2023-09-21 00:11 | XMS_ITS | Encounter Summary ---
[place] [address] Care Team Providers Care Photonics Technician Name Role Phone Ellie Dumont BOONE Primary Care Provider Encounter Details Date Type Department Care Team (Latest Contact Info) Description 03/13/2017 10:20 AM EST Clinical [place] [phone] Pre-op evaluation (Primary Dx) Social History Tobacco Use Types [...] Sign Reading Time Taken Comments Blood Pressure - - Pulse 109 03/13/2017 10:05 AM EST Temperature - - Respiratory Rate - - Oxygen Saturation 96% 03/13/2017 10:05 AM EST Inhaled Oxygen Concentration - - Weight 74.1 kg (163 lb 6.4 oz) 03/13/2017 10:05 AM EST Height 168.9 cm (5' 6.5) 03/13/2017 10:05 AM ES T Body Mass Index 25.98 03/13/2017 10:05 AM EST documented in this encounter Progress Notes * Virgie Cartagena RN - 03/13/2017 10:20 AM EST PAT questionnaire reviewed with patient while in Pre Admission testing. Pre- operative instruction booklet reviewed. Patient verbalizes a good understanding of all information reviewed. PLAN: Testing: Labs, T&S EKG Special medication instructions: Procedure date: 04-09-17 Dr. Claire documented in this encounter Plan of Treatment Not on file documented as of this encounter Procedures Procedure Name Priority Date/Time Associated Diagnosis Comments EKG 12-LEAD Routine 03/13/2017 10:42 AM EST Pre-op evaluation documented in this encounter Results * EKG 12 Lead (03/13/2017 10:42 AM EST) Ventricular rate 67 BPM MUSE SYSTEM Atrial Rate 67 BPM MUSE SYSTEM P-R Interval 162 ms MUSE SYSTEM QRS Duration 112 ms MUSE SYSTEM Q-T Interval 398 ms MUSE SYSTEM QTC Calculated (Bezet) 420 ms MUSE SYSTEM Calculated P [place] 43 degrees MUSE SYSTEM Calculated R [place] 55 degrees MUSE SYSTEM Calculated T [place] 64 degrees MUSE SYSTEM INTERPRETATION Normal sinus rhythm Normal ECG No previous ECGs available Confirmed by MD JANNIA, TRINA ([id number]) on 03/13/2017 11:42:47 AM MUSE SYSTEM 03/13/2017 10:4 2 AM EST 03/13/2017 11:42 AM EST Trina Claire MD ECG ORDERABLES MUSE SYSTEM documented in this encounter Visit Diagnoses Diagnosis Pre-op evaluation- Primary Preoperative examination, unspecified documented in this encounter Care Teams Photonics Technician Relationship Specialty Start Date End Date Ellie Dumont APRN [address] [place] [address] PCP - General Family Medicine 11/27/16 11/11/21 documented as of this encounter
--- OUTSIDE RECORDS SUMMARY | 2023-09-21 00:11 | XMS_ITS | Encounter Summary ---
Author Organization [facility] Address [facility] [place] [address] Care Team Providers Care Home Agent Name Role Phone Ellie Dumont BOONE Primary Care Provider Reason for Visit * Reason Comments Aftercare Of Tjr XR- RIGHT ANT JOSE MARIA Encounter Details Date Type Department Care Team (Late st Contact Info) Description 10/15/2018 10:00 AM EDT [place] [address] [facility] [place] [address] History of total hip arthroplasty, right Social [...] Pulse 51 10/15/2018 10:34 AM EDT Temperature - - Respiratory Rate - - Oxygen Saturation 100% 10/15/2018 10:34 AM EDT Inhaled Oxygen Concentration - - Weight 72.3 kg (159 lb 6.4 oz) 10/15/2018 10:34 AM EDT measured Height 167.5 cm (5' 5.95) 10/15/2018 10:34 AM E DT measured Body Mass Index 25.77 10/15/2018 10:34 AM EDT documented in this encounter Progress Notes * Trina Claire MD - 10/15/2018 10:00 AM EDT Arthroplasty/Orthopaedic History: Case Date: 04/09/2017 ?? Surgeon: Surgeon(s) and Role: * Trina Claire MD - Primary * Karyn Cheek MD - Resident-Surgeon [place] ?? Preoperative diagnosis: Osteoarthritis ?? Postoperative diagnosis: Osteoarthritis ?? Procedure(s) (LRB): @TOTAL HIP ARTHROPLASTY, ANTERIOR APPROACH (WRVU 20.72) (Right) MODIFIER PINNACLE ACETABULUM DEPUY (N/A) MODIFIER ACTIS HIP STEM DEPUY (Right) ? Anesthesia: Spinal HPI: Qian Brewer is a very pleasant 63 y.o. year-old female and is now 1 year post right total hip replacement The patient has been doing well. The patient is not having any pain.. Qian has been ambulating with no assistive device . She is not taking pain medicine or NSAIDs. ROS: Denies: fever, chills, night sweats, nausea, or vomiting BP 118/62 (BP Location (NBP): Left arm, Patient Position: Sitting, BP Cuff Sizes: Adult (25-34 cm)) Pulse 51 Ht 167.5 cm (5' 5.95) Comment: measured Wt 72.3 kg (159 lb 6.4 oz) Comment: measured SpO2 100% BMI 25.77 kg/m?? Physical Exam: Well-appearing female in no acute distress. Alert and Oriented x 3 and answers all questions appropriately. The incision is well healed, with no signs of infection. Hip Exam: Right Leg length: Longer leg: equal Limb Length discrepancy: 0cm Motion: Flexion contracture: 0 Total degrees of Flexion:135 Total degrees of Abduction:50 Total degrees of Ext Rotation: 25 Total degrees of Internal Rotation: 10 Gait Abnormality: Normal Pulses Palpable: Right PT: Yes Right DP:Yes Motor/Sensory: Right Distal Motor: Normal Distal Sensory: Normal Hip Abductors 5 Trendelenburg test: negative X-RAYS: Multiple radiographic views were obtained at my request and reviewed with the patient. X-rays show a well-placed prosthesis with no evidence of fracture, subsidence, loosening, or periprosthetic complication. Questionnaire Responses: [facility] Surgical Postop Visit 10/15/2018 PROMIS-10 General Health Very Good PROMIS-10 Quality of Life Excellent PROMIS-10 Physical Health Very Good PROMIS-10 Mental Health Very Good PROMIS-10 Social Activity Very Good PROMIS-10 Everyday Activities Completely PROMIS-10 Pain 0 -No Pain PROMIS-10 Fatigue None PROMIS-10 Social Roles Excellent PROMIS-10 Anxious or Depressed Rarely PROMIS PHYSICAL HEALTH SCORE 61.9 PROMIS MENTAL HEALTH SCORE 56 HOOS JR Scores 100 KOOS JR Scores - Problems with surgical incision/wound after surgery No Gone to ER since knee surgery No Admitted to hospital since recent ortho surgery No Additional surgery on same body part No TKA Grade - JOSE MARIA Grade 10 Pain in other HIP None Back pain at this moment None Satisfaction with Treatment Satisfied Choose Same Treatment Again Definitely yes Orthopeadics [facility] Response 10/15/2018 HOOS JR Scores 100 KOOS JR Scores - Spine [facility] Response 10/15/2018 HOOS JR Scores 100 KOOS JR Scores - ASSESSMENT/PLAN: Ms. Brewer is a 63 y.o. year old female status post right total hip replacement Doing well postoperatively. We will see her back in 4 years for repeat examination. X-rays will be needed at that time. We discussed the appropriate precautions surrounding dental prophylaxis; according to the AAOS Appropriate Use Criteria we do not recommend antibiotic use prior to dental procedures for Qian. We also discussed maintaining good foot care and giving prompt attention to any source of infectionthroughout the body including foot ulcers and urinary tract infections. All questions were answered. Signed: TRINA CLAIRE MD 10/15/2018 documented in this encounter Plan of Treatment Not on file documented as of this encounter Visit Diagnoses Diagnosis History of total hip arthroplasty, right documented in this encounter Care Teams Home Agent Relationship Specialty Start Date End Date Ellie Dumont APRN [address] [place] [address] PCP - General Family Medicine 10/9/17 9/23/22 documented as of this encounter
--- OUTSIDE RECORDS SUMMARY | 2023-09-21 00:12 | XMS_ITS | Clinical Summary ---
Author Organization [facility] Address [address] [place] [address] Care Team Providers Care Supersonic Engineer Name Role Phone Unknown, Provider Primary Care Provider Social History Tobacco Use Types Packs/Day Years Used Date Smoking Tobacco: Never Assessed Sex and Gender Information Value Date Recorded Sex Assigned at Not on file Gender Identity Not on file Sexual Orientation Not on file Plan of Treatment Health Maintenance Due Date Last Done Comments Hepatitis C Screen 1955 RSV Immunization ( o r 60+ Years) (1 - 1-dose 60+ series) 2016 Fall Risk Screening 2021 COVID-19 Vaccine ( season) 2022 Care Teams Supersonic Engineer Relationship Specialty Start Date End Date Unknown, Provider, PCP - General 12/29/14
--- OUTSIDE RECORDS SUMMARY | 2023-09-21 00:12 | XMS_ITS | Encounter Summary ---
Author Organization [facility] Address [address] [place] [address] Care Team Providers Care Scientific Artist Name Role Phone Unavailable Primary Care Provider Unavailabl e Encounter Details Date Type Department Care Team (Late st Contact Info) Description 04/27/2000 Results Only [facility] [address] [place] [address] Vicky Swain, NUVIA Social History Tobacco Use Types Packs/Day Years Used Date Smoking Tobacco: Never Assessed Sex and Gender Information Value Date Recorded Sex Assigned at Not on file Gender Identity Not on file Sexual Orientation Not on file documented as of this encounter Plan of Treatment Not on file documented as of this encounter Procedures Procedure Name Priority Date/Time Associated Diagnosis Comments SURGICAL PATHOLOGY Routine 04/27/2000 0:00 EST documented in this encounter Results * SURGICAL PATHOLOGY (04/27/2000 0:00 EST) Pathology Report: SURGICAL PATHOLOGY REPORT Reports generated via electronic interface contain original data; however they are lacking the format of the original report. Caution should be taken when reading/interpreti ng unformatted reports. Name: ? QIAN BREWER ? Accession #: ? [id number] ? : ? 1955 (Age: 44) ??F ? Collect Date: ? 04/27/2000 ? Location: ? [facility] ? Receive Date: ? 04/30/2000 ? Provider: VICKY SWAIN NP Copy to: SONI MANLEY MD ? Final Pathologic Diagnosis: ? Endometrium, biopsy: 1. ?Fragments of benign inactive endometrium with tubal metaplasia and eosinophilic metaplasia. 2. ?Fragments of benign endocervical glands and squamous epithelium. Document reviewed and electronically signed by: Bienvenido Amor [facility] Report ??Date: 05/02/2000 14:40 By the signature above, the attending physician certifies that he/she has personally conducted a gross and/or microscopic examination of the described specimens and rendered or confirmed the above diagnosis. Specimen(s) Received: ? Endometrial bx Clinical History: ? Postmenopausal bleeding; menopause age; 1994 episodic spotting since with 10 d spotting episode 2-3 wks ago. Gross Description: ? Received in formalin labelled Patoine and endometrial bx is a brunson-brown hemorrhagic mucoid tissue which approximates 1.0 cc in aggregate volume. Specimen submitted entirely in one cassette. ??(Con Cobos)/sabra End of Report KEVAN VIDAL 04/27/2000 04/30/2000 15: 15 EST Vicky Swain NP PATHOLOGY ORDERABLES [facility] [address] [place] [address] documented in this encounter Visit Diagnoses Not on filedocumented in this encounter
--- OUTSIDE RECORDS SUMMARY | 2023-09-21 00:12 | XMS_ITS | Encounter Summary ---
Author Organization [facility] [place] [address] Care Team Providers Care Clinical Documentation Nurse Name Role Phone Unknown Primary Care Provider Unavailabl e Reason for Visit * Reason Comments Establish Care FAXING RECORDS PELVI C MASS Encounter Details Date Type Department Care Team (Late st Contact Info) Description 05/13/2012 1:00 PM EDT Office Visit [place] [address] Shari Quiroz MD [facility] DR [place] [address] Annual physical exam (Primary Dx); Pelvic mass Discharge Disposition: Home Social History Tobacco Use Types Packs/Day Years Used Date Smoking Tobacco: Never Alcohol Use Standard Drinks/Week Comments Yes 2.5 (1 standard drink = 0.6 oz p ure alcohol) Sex and Gender Information Value Date Recorded Sex Assigned at Not on file Gender Identity Not on file Sexual Orientation Not on file documented as of this encounter Last Filed Vital Signs Vital Sign Reading Time Taken Comments Blood Pressure 143/62 05/13/2012 1:14 PM EDT Pulse - - Temperature - - Respiratory Rate - - Oxygen Saturation - - Inhaled Oxygen Concentration - - Weight 67.5 kg (148 lb 13 oz) 05/13/2012 1:14 PM EDT Height 169 cm (5' 6.54) 05/13/2012 1:14 PM EDT Body Mass Index 23.63 05/13/2012 1:14 PM EDT documented in this encounter Progress Notes * Eleanor Mendenhall MD - 05/13/2012 1:[address] [facility], [place], [place] Department of Gynecologic Oncology New Patient Visit Chief Complaint: Discuss my GI symptoms and pelvic mass Referring Physician: Pacheco West MD HPI: Corry is a 56 yo G0 with minimal medical care was in her usual state of health until May 07 when she had an acute episode of left lower quadrant pain necessitating a visit to the ED. She was on business in [place] when she woke up Sunday am with intense LLQ pain radiating towards back associated with n/v, diarrhea. She thought she had appendicitis and went to the ED in [place]. She underwent CT and TvUS and was told that she likely had a fibroid that was pressing up against her intestine.She was given rx for pain and anti-emetics and told to follow up with local provider. She flew backto [place] the following day and then on Sunday received a phone call from the ED that she had a UTI andwas started on abx. Although her diarrhea and pain had improved it was not completely resolved and she went to her local ED for clarification as she does not have a PCP. Of note, she went out to dinner on Sunday with her fiance and ate something that did not seem right. She initially had some abdominal discomfort and her fiance was noted to have diarrhea that evening. Today reports that she is feeling much better. Continuing to have some gas discomfort. Stoolsare looser than usual. BMs are now 12times/day, however appetite is better. Denies early satiety. N/V resolved. Her gynecologic history is remarkable for menarche at age 15, regular life-long cycles, menopause at age 38. Her Paps have not been regularly obtained. She used control pills a total of 15-20years. She has had 0 pregnancies. No h/o HRT Cancer Screenin. Mammography: yes, but probably about 12 years ago 2. Colonoscopy: none 3. Cervical cancer screening: age 39 Family History: Negative for uterine, ovarian, breast, colon, or pancreatic cancer. Past Medical History: No past medical history on file. Past Surgical History: Past Surgical History Procedure Date ??? Joint replacement 2007 left hip Performance Status: 0 The patient is able to walk and climb two flights of stairs. She denies chestpain or shortness of breath. She is fully functional and active. Works in sales. Social History: The patient lives in [place]. Engaged. Tobacco history: one Alcohol history: 3-4 glasses of wine/week illict drugs none Review of Systems: Constitutional: Intentional 15 lb weight loss denies fevers chills,+ night sweats Neuro: No headaches Psych: No depression, anxiety Pulmonary: No SOB, dyspnea, cough, productive cough, hemoptysis Cardiac: No chest pain, palpitations GI: +nausea, +vomiting, hematemesis,+ diarrhea x 1week, constipation, hematochezia, : +dysuria (on nitrofurantoin), urgency, frequency, vaginal itching, vaginal discharge or odor Endocrine/Immune: No heat/cold intolerance Musculoskeletal systems: Equal bilateral strength and sensation. Physical Exam: BP 143/62 Ht 169 cm (5' 6.54) Wt 67.5 kg (148 lb 13 oz) BMI 23.63 kg/m2 General: She is an alert woman, no obvious distress, excellent historian. HEENT: Normal hair pattern and distribution. Neck is supple without obvious lymphadenopathy or thyromegaly. Lungs: Clear to auscultation bilaterally. Heart: Regular rhythm, normal rate, no murmurs. Abdomen: Soft, enlarged firm pelvic mass extending to approx 5cm above pubic symphysis. Mobile. Slightly tender in suprapubic region. The inguinal nodes are not enlarged. Extremities: No edema. Pelvic examination: Normal external genitalia with no lesions of the vulva, clitoris, urethral meatus, or perianal area. Speculum exam demonstrates an atrophic vagina and atrophic cervix. No tumor is seen on the cervix or upper vagina. Pap obtained Bimanual examination: Patient is voluntarily guarding during exam. Unable to discern if mass is arising from ovary or uterus. Hemorroids present Laboratory Studies: [id number] Imaging Studies: CT and TvUS report and images not available at time of consultation Impression/plan: Corry is a 56 year-old woman with minimal medical care who presents for evaluation of a pelvic mass that was identified on CT imaging during an ER work up for likely gastroenteritis in the setting of food poisoning (given that most of her GI symptoms are resolving and her partnerhad the same). Unfortunately Corry did not bring her images today so we are not able to make a definitive plan. This likely represents and incidental finding on imaging unrelated to her initial presenting symptoms. We discussed the differential diagnosis of both solid uterine and adnexal masses, ie possible ovarian fibroma, uterine fibroid or less likely, malignancy. Corry will have her images sent to [facility] for our review and a formal radiology read as well.. Upon review of her images, we will contact her for a plan which will likely be either definitive surgical intervention, conservativemanagement with repeat imaging or possible MRI if we are unable to identify the source of this mass. Thank you for sending Corry Brewer to see me today. I will keep you informed of our progress in her care. I have seen and examined the patient and reviewed and edited the resident's above history and I agree with the details as written. The assessment and plan were formulated in discussion with me and I agree with them as documented. Shari Quiroz MD documented in this encounter Plan of Treatment Not on file documented as of this encounter Procedures Procedure Name Priority Date/Time Associated Diagnosis Comments TEMPERATURE REGULATOR MOLECULAR GENETICS REPORT Routine 05/13/2012 6:34 PM EDT TEMPERATURE REGULATOR CYTOLOGY FINAL REPORT Routine 05/13/2012 6:34 PM EDT CYTOPATHOLOGY GYNECOLOGICAL Routine 05/13/2012 3:50 PM EDT Annual physical exam documented in this encounter Results * Portable Router Operator Cytology Final Report (05/13/2012 6:34 PM EDT) Portable Router Operator Cytology Final Report ? [facility] ? Provider: ?? SHARI QUIROZ ?? Pt. Name: ?? CORRY BREWER ? Acc #: ?[id number] ?Pt. ? Col Date: ?? 05/13/2012 ? /Sex: ?1955,(56 years),Female ? Rec Date: ?? 05/13/2012 ? LOC: ?3K ? CYTOPATHOLOGY: ??TEMPERATURE REGULATOR ? ---Adequacy--- ? Specimen submitted is satisfactory. ? Endocervical component present. ? ---Cytopathologic Diagnosis--- ? NORMAL ? Negative for Intraepithelial Lesion or Malignancy (NILM). ? 05/16/12 ?? Screened by: ??LMY ??LKC ? 05/17/12 ?? Verified by: ??Sherman CT(ASCP), Christina K - Dye Penetrant Testing Technician ? ---Comment--- ? Please also see concurrent HPV test result. ? ---Clinical Information--- ? HPV Option: ? Concurrent HPV ? Preparation: ?Liquid Based Pap ? Specimen Source: ?Cervical Endocervical LBP ? LMP: ?NA ? Hormones?: ?No ? Hysterectomy?: ?No ?: ?No ?: ?No ? I.U.D.?: ?No ? Pelvic Radiation: ? No ? Prior TEMPERATURE REGULATOR Therapy?: ? No ? Hist Abnl Pap/Biopsy?: [...] ??For further ? information please contact the [facility] Laboratory. ? [facility] ? Provider: ?? SHARI QUIROZ ?? Pt. Name: ?? CORRY BREWER ? Acc #: ?[id number] ?Pt. ? Col Date: ?? 05/13/2012 ? /Sex: ?1955,(56 years),Female ? Rec Date: ?? 05/13/2012 ? LOC: ?3K ? CYTOPATHOLOGY: ??TEMPERATURE REGULATOR ? Reference: ??Rosalva CS. ??Manager Shift of Pap Smear Results. ??In: ? Samanta BS, [facility], ed. ??The Pap Smear. ??[place]: ??Nicola, 2002: ? 71-77. [facility] 05/13/2012 6:34 PM EDT Shari Quiroz MD PATHOLOGY/CYTOLOGY O RDERABLES [facility] * TEMPERATURE REGULATOR Molecular Genetics Report (05/13/2012 6:34 PM EDT) Pathologist [facility] TEMPERATURE REGULATOR Molecular Genetics Report ? [facility] ? Provider: ?? SHARI QUIROZ ?? Pt. Name: ?? CORRY BREWER ? Acc #: ?[id number] ?Pt. ? Col Date: ?? 05/13/2012 ? [...] Cytology Liquid Based Prep ? Reviewed by: ??Karen May ? A ?LEE ANN Cerv-Endocerv LBP ? B ?HPVDO Do HPV Testing ? Verified date: ??05/16/12 ??ABH ? Verified by: ?Lab Review, Molecular Genetics ? (Electronic Signature) [facility] 05/13/2012 6:34 PM EDT Shari Quiroz MD PATHOLOGY/CYTOLOGY O JANENE [facility] * Cytopathology Gynecological (05/13/2012 3:50 PM EDT) AP Specimen 05/13/2012 3:50 PM EDT 05/13/2012 3:50 PM EDT Narrative PATYLAYLA BEAR - 05/13/2012 3:50 PM EDT Specimen requisition ordered. ??Separate Pathology report to follow Shari Quiroz MD PATHOLOGY/CYTOLOGY O JANENE [facility] documented in this encounter Visit Diagnoses Diagnosis Annual physical exam- Primary Routine general medical examination at a health care facility Pelvic mass Abdominal or pelvic swelling, mass or lump, unspecified site documented in this encounter Care Teams Clinical Documentation Nurse Relationship Specialty Start Date End Date Unknown None PCP - General 01/11/10 10/30/16 documented as of this encounter
--- OUTSIDE RECORDS SUMMARY | 2023-09-21 00:12 | XMS_ITS | Encounter Summary ---
Author Organization [facility] Address [address] [place] [address] Care Team Providers Care Candy Spreader Helper Name Role Phone Unavailable Primary Care Provider Unavailabl e Encounter Details Date Type Department Care Team (Latest Contact Info) Description 01/29/2002 16:05 [facility] Hospital Encounter [address] [address] Hira Hannah MD [address] [address] Discharge Disposition: Auto Discharge Social History Tobacco Use Types Packs/Day Years Used Date Smoking Tobacco: Never Assessed Sex and Gender Information Value Date Recorded Sex Assigned at Not on file Gender Identity Not on file Sexual Orientation Not on file documented as of this encounter Discharge Disposition Disposition Code Departure Means Destination Auto Discharge documented in this encounter Plan of Treatment Not on file documented as of this encounter Visit Diagnoses Not on filedocumented in this encounter
--- OUTSIDE RECORDS SUMMARY | 2023-09-21 00:12 | XMS_ITS | Encounter Summary ---
Author Organization [facility] [place] [address] Care Team Providers Care Pt Escort Name Role Phone None Primary Care Provider Unavailabl e Reason for Visit * Reason Comments Right Hip Pain ? surgical * Consultation (Routine) - Closed Specialty Diagnoses / Procedures Referred By Uyen stockton Referred To Contact Orthopaedics Diagnoses right hip pain Self mail [facility] [address] [place] [address] Referral ID Status Reason Start Date Expiration Date Visits Re quested Visits Authorized [id number] Closed 10/25/2016 10/25/2017 1 1 Encounter Details Date Type Department Care Team (Latest Contact Info) Description 10/31/2016 8:50 AM EDT Office [place] [address] Peter Claire MD [facility] [place] [address] Pain in right hip; Primary osteoarthritis of right hip; Arthritis of right hip Social History Tobacco [...] Sign Reading Time Taken Comments Blood Pressure 148/63 10/31/2016 8:20 AM EDT Pulse 68 10/31/2016 8:20 AM EDT Temperature - - Respiratory Rate - - Oxygen Saturation - - Inhaled Oxygen Concentration - - Weight 72.6 kg (160 lb 1.6 oz) 10/31/2016 8:20 AM EDT fully clothed Height 168 cm (5' 6.14) 10/31/2016 8:2 0 AM EDT without shoes Body Mass Index 25.73 10/31/2016 8:20 AM EDT documented in this encounter Progress Notes * Chema Coleman - 10/31/2016 8:50 AM EDT Images from the original note were not included. Department of Orthopaedics Division of Adult Joint Reconstructive Surgery ARTHROPLASTY HISTORY/PREVIOUS HIP SURGERY: 1. Left JOSE MARIA 05/06/2002 Dr. King Subjective: Qian Brewer is a 61 y.o. female who presents with Right hip pain for the last 6 months that has been getting progressively worse. She states that she has pain when going from a sitting to a standing positiong and while going up and down stairs. She takes NSAIDs (Ibuprofen) with minimal relief. She does not use any assistive devices. She has not tried physical therapy. Of note, she had a left JOSE MARIA by Dr. King that she continues to have no pain from. REVIEW OF SYSTEMS: Qian denies fevers, chills, night sweats, nausea, or vomiting. She does not endorse a history of DVT/PE or clotting disorder. She denies IA/CVA in the past. QUESTIONNAIRE RESPONSES: General Health, Prior Treatments, PreExisting Condition, Health Habits, About You 10/31/2016 PROMIS-10 General Health Very Good PROMIS-10 Quality of Life Very Good PROMIS-10 Physical Health Very Good PROMIS-10 Mental Health Very Good PROMIS-10 Social Activity Very Good PROMIS-10 Everyday Activities Mostly PROMIS-10 Pain 1 PROMIS-10 Fatigue Mild PROMIS-10 Social Roles Very Good PROMIS-10 Anxious or Depressed Rarely PROMIS PHYSICAL SCORE (range 16-68) 50.8 PROMIS MENTAL SCORE (range 21-68) 53.3 KOOS JR Scores 100 TKA Grade 9 Alzheimers or dementia No Cirrohosis or liver disease No HIV/AIDS No Pain in more than one joint in legs No Back or neck pain No Heart attack No Heart failure No Unclog/bypass leg arteries No Stroke, blood clot, TIA No Asthma No Emphysema, chronic bronchities, or COPD No Stomach ulcers/peptic ulcer disease No Diabetes No Poor kidney function No Rheumatic condtions No Cancer No Weight (lbs) 150 Height (feet) 5 feet Height (Inches) 6 BMI 24.2 (Normal) Ever used tobacco products No Ever used alcoholic beverages Yes Alcohol frequency Daily or almost daily WHO - Alcohol Advice 6 (You are at risk of health and other problems from your current pattern of alcohol use.) Live Alone No Marital situation Living with significant other Schooling Some college or 2 - year degree Combined Household Income $75,000 or more # People Supported 2 English, , No, not English// Race White Health Literacy Extremely Currently working Yes Current job situation Full-time [facility] Response 10/31/2016 KOOS JR Scores 100 Spine [facility] Response 10/31/2016 KOOS JR Scores 100 ALLERGIES No Known Allergies Allergies to metals: Denies. SOCIAL HISTORY: reports that she has never smoked. She has never used smokeless tobacco. She reports that she drinks about 1.5 - 2.0 oz of alcohol per week She reports that she does not use illicit drugs. Occupation: Works in sales SIGNIFICANT MEDICAL COMORBIDITIES: Patient Active Problem List Diagnosis Code ??? Pelvic mass R19.00 Objective: BP 148/63 Pulse 68 Ht 168 cm (5' 6.14) Comment: without shoes Wt 72.6 kg (160 lb 1.6 oz) Comment: fully clothed BMI 25.73 kg/m2 General : alert, appears stated age and cooperative Gait: Normal. The patient can bear weight on the injured extremity. I have made the following determinations: Hip Exam: Right Prior surgery on this joint:No Leg Length: Longer leg: equal Limb Length discrepancy: 0cm Motion: Flexion contracture: 0 Total degrees of Flexion: 90 Total degrees of Abduction: 45 Total degrees of Ext Rotation: 30 Total degrees of Internal Rotation: 10 Gait Abnormality: Normal Radiographic evidence of joint damage: [0= normal; 1=minimal ; 2= some osteophytes , some narrowing ; 3= moderate osteophytes, significantnarrowing, mild deformity; 4= large osteophytes, marked narrowing, obvious deformity]: 4= large ostophytes, marked narrowing, obvious deformity Skin Integrity: Normal Pulses Palpable: Right PT: Yes Right DP: Yes Motor/Sensory: Right Distal Motor: Normal Distal Sensory: Normal Hip Abductors: 5 Trendelenburg test: negative Imaging: X-ray demonstrate significant degenerative arthritis of her right hip. Her implant on the left has excellent placement. Assessment: Ms. Brewer is a 61 y.o. year old female with severe osteoarthritis of her right hip. Plan: Natural history and expected course discussed. Questions answered. We reviewed the multiple treatment options available to her for this condition and the hurtful but non-harmful nature of arthritis. Both operative and nonoperative options were discussed as well as the pure elective nature of each. I reviewed the concept of the arthritis ladder with its step-farias approach, rising in invasiveness based on either previous response or symptom severity/impact on lifestyle. Considering the apparent impact on her lifestyle and having explored non- operative treatment options, I indicated that in my opinion total hip arthroplasty would be a reasonable option to attempt to restore a more normal, pain-free level of function. I discussed how the procedure is performed and all of their questions were answered. I discussed the risks of the procedure and the potentially devastating consequences of complications. Ms. Brewer expressed a desire to pursue total hip arthroplasty. Potential barriers to total joint arthroplasty: -BMI > 40: No -Active Tobacco use: No -Diabetes with hemoglobin A1C > 7.5: No She will seek out the needed medical clearance and undergo the needed testing to ensure medical suitability for the proposed surgical intervention. I will plan to meet her again in the weeks prior dion anticipated potential surgical date, to review her medical consult and testing, answer any and all questions, and formulate our definitive decisions regarding proceeding with surgery (or not) at that time only. Patient seen in conjunction with Dr. Claire. CHEMA COLEMAN MD * Peter Claire MD - 10/31/2016 8:50 AM EDT I performed a history and physical examination of the patient and discussed the management plan with Chema Coleman MD. I also discussed the different treatment options, [...] Procedure Name Priority Date/Time Associated Diagnosis Comments TOTAL HIP ARTHROPLASTY, ANTERIOR APPROACH Routine 10/31/2016 9:01 AM EDT Pain in right hip Primary osteoarthritis of right hip documented in this encounter Results * Basic Metabolic Panel (non-fasting) (03/13/2017 10:46 AM EST) Glucose Lvl 95 65 - 199 mg/dL [facility] Comment:Diabetes: >=200 mg/d L plus symptoms BUN 18 8 - 18 mg/dL [facility] Creatinine 0.71 0.70 - 1.20 mg/dL [facility] Sodium 142 135 - 145 mmol/L [facility] Potassium 4.1 3.5 - 5.0 mmol/L [facility] Comment: Please note: ??Patients with WBC >100,000 may have falsely elevated Potassium levels. ??For accurate Potassium quantification in these patients send serum separator tube (gold top) for subsequent determinations. ??Contact the Clinical Chemistry Laboratory if there are any questions. Chloride 104 98 - 107 mmol/L [facility] CO2 26 22 - 31 mmol/L [facility] Anion Gap 12 5 - 15 mmol/L [facility] Calcium 9.1 8.5 - 10.5 mg/dL [facility] Estimated GFR >60 >=60 [facility] Comment: The reported eGFR should be multiplied by 1.2 for patients. The MDRD is not an appropriate measure of renal function for patients with body mass extremes or in patients with acute kidney failure. [email or web address] Blood specimen (specimen) 03/13/2017 10:46 AM EST 03/13/2017 11:10 AM EST Narrative Resulting Agency Comment Spec In Lab Peter Claire MD CHEMISTRY ORDERABLES [facility] [place] [place] [address] documented in this encounter Visit Diagnoses Diagnosis Pain in right hip Pain in joint, pelvic region and thigh Primary osteoarthritis of right hip Primary localized osteoarthrosis, pelvic region and thigh Arthritis of right hip documented in this encounter Care Teams Pt Escort Relationship Specialty Start Date End Date None None PCP - General 10/31/16 11/26/16 documented as of this encounter
--- OUTSIDE RECORDS SUMMARY | 2023-09-21 00:12 | XMS_ITS | Encounter Summary ---
Author Organization [facility] Address [address] [place] [address] Care Team Providers Care Security Support Analyst Name Role Phone Unavailable Primary Care Provider Unavailabl e Encounter Details Date Type Department Care Team (Late st Contact Info) Description 04/13/2000 Results Only [facility] [address] [place] [address] Oumou Horton, [address] [place] [phone] Social History Tobacco Use Types Packs/Day Years Used Date Smoking Tobacco: Never Assessed Sex and Gender Information Value Date Recorded Sex Assigned at Not on file Gender Identity Not on file Sexual Orientation Not on file documented as of this encounter Plan of Treatment Not on file documented as of this encounter Procedures Procedure Name Priority Date/Time Associated Diagnosis Comments CYTOPATHOLOGY Routine 04/13/2000 0:00 EST documented in this encounter Results * CYTOPATHOLOGY (04/13/2000 0:00 EST) Pathology Report: CYTOPATHOLOGY REPORT Reports generated via electronic interface contain original data; however they are lacking the format of the original report. Caution should be taken when reading/interpreti ng unformatted reports. Name: ? QIAN BREWER ? Accession #: ? [id number] : ? 1955 (Age: 44) ??F ?Collect Date: ? 04/13/2000 Location: ? [facility] ? Receive Date: ? 04/16/2000 Provider: ?OUMOU HORTON RETAIL SERVICES PROFESSIONAL Copy to: ? Specimen/Source: ?ThinPrep Pap Test, Cervix/Endocervix Last Menstrual Period: ? 95 ? SPECIMEN ADEQUACY ? Satisfactory for evaluation but limited by scant squamous epithelial component. GENERAL CATEGORIZATION ? Within Normal Limits ? Document reviewed and electronically signed by: ? Darling Argueta, ??CT(ASCP) ? Report Date: ??04/17/2000 09:35 End of Report KEVAN VIDAL 04/13/2000 04/16/2000 Oumou Horton RETAIL SERVICES PROFESSIONAL PATHOLOGY ORDERABLES [facility] [address] [place] [address] documented in this encounter Visit Diagnoses Not on filedocumented in this encounter
--- OUTSIDE RECORDS SUMMARY | 2023-09-21 00:12 | XMS_ITS | Encounter Summary ---
Author Organization [facility] Address [address] [place] [address] Care Team Providers Care Can Coverer Name Role Phone Unavailable Primary Care Provider Unavailabl e Encounter Details Date Type Department Care Team (Late st Contact Info) Description 01/28/2002 14:09 EST Hospital Encounter [address] [address] Hira Hannah MD [address] [phone] Social History Tobacco Use Types Packs/Day Years Used Date Smoking Tobacco: Never Assessed Sex and Gender Information Value Date Recorded Sex Assigned at Not on file Gender Identity Not on file Sexual Orientation Not on file documented as of this encounter Plan of Treatment Not on file documented as of this encounter Procedures Procedure Name Priority Date/Time Associated Diagnosis Comments HIP UNILATERAL 2 OR MORE VIEWS Routine 01/28/2002 14:37 EST HIP UNILATERAL 1 VIEW Routine 01/28/2002 14:37 EST documented in this encounter Results * HIP UNILATERAL 2 OR MORE VIEWS (01/28/2002 14:37 EST) Anatomical Region Laterality Modality Other 01/28/2002 14:3 7 EST Narrative 11/16/2008 4:07 EDT LEFT HIP PAIN R/O OSTEOARTHRITIS BILATERAL HIPS, 01/28/02 CLINICAL HISTORY: Left hip pain. FINDINGS: An AP view centered over both hips and an additional view of the left hip are received. There are moderate degenerative changes of the left hip with joint space narrowing, subchondral cysts, subchondral sclerosis, and marginal osteophyte formation. Similar but less severe changes are seen on the right side. No fracture is seen. The bones are otherwise unremarkable. /[facility] Procedure Note Jenifer Estes MD - 11/16/2008 LEFT HIP PAIN R/O OSTEOARTHRITIS BILATERAL HIPS, 01/28/02 CLINICAL HISTORY: Left hip pain. FINDINGS: An AP view centered over both hips and an additional view of the left hip are received. There are moderate degenerative changes of the left hip with joint space narrowing, subchondral cysts, subchondral sclerosis, and marginal osteophyte formation. Similar but less severe changes are seen on the right side. No fracture is seen. The bones are otherwise unremarkable. /[facility] Hira [facility] NG ORDERABLES * HIP UNILATERAL 1 VIEW (01/28/2002 14:37 EST) Anatomical Region Laterality Modality Other 01/28/2002 14:3 7 EST Narrative 11/16/2008 4:07 EDT LEFT HIP PAIN R/O OSTEOARTHRITIS Procedure Note Jenifer Estes MD - 11/16/2008 LEFT HIP PAIN R/O OSTEOARTHRITIS Hira [facility] ORDERABLES documented in this encounter Visit Diagnoses Not on filedocumented in this encounter
--- OUTSIDE RECORDS SUMMARY | 2023-09-21 00:12 | XMS_ITS | Encounter Summary ---
Author Organization [facility] Address [address] [place] [address] Care Team Providers Care Projection Welding Machine Operator Name Role Phone Unknown, Provider Primary Care Provider [phone] Encounter Details Date Type Department Care Team (Late st Contact Info) Description 06/05/2018 Results Only [facility] [phone] Larissa Nye, [employer] [address] [place] [address] Social History Tobacco Use Types Packs/Day Years Used Date Smoking Tobacco: Never Assessed Sex and Gender Information Value Date Recorded Sex Assigned at Not on file Gender Identity Not on file Sexual Orientation Not on file documented as of this encounter Plan of Treatment Not on file documented as of this encounter Procedures Procedure Name Priority Date/Time Associated Diagnosis Comments PAP TEST- RESULT ONLY Routine 06/05/2018 0:00 EDT documented in this encounter Results * PAP TEST- RESULT ONLY (06/05/2018 0:00 EDT) Pathology Report: CYTOPATHOLOGY REPORT Reports generated via electronic interface contain original data; however they are lacking the format of the original report. Caution should be taken when reading/interpreti ng unformatted reports. Name: ? QIAN BREWER ? Accession #: ? [id number] ? : ? 1955 (Age: 62) ??F ?Collect Date: ? 06/05/2018 ? Location: ? [facility] ? Receive Date: ? 06/07/2018 ? Provider: LARISSA NYE SOCIAL MEDIA PROJECT MANAGER-BC Copy to: ? Final Report SPECIMEN ADEQUACY ? Satisfactory for Evaluation - transformation zone component present GENERAL CATEGORIZATION ? Negative for Intraepithelial Lesion or Malignancy ?? Menstrual/Pregnanc y Status: ??Post Menopausal Hormonal/Contracep tive status: None Specimen/Source: ??Pap Test, Cervix/Endocervix, ThinPrep Imaging System with manual evaluation Document reviewed and electronically signed by: ? Kellie Fortune, [place](ASCP) ? Report ??Date: 06/11/2018 10:57 HPV with Pap Test ? Date Ordered: ? 06/11/2018 ? Status: ?? Signed Out ?Date Complete: ? 2018 ? By: ??System Interface ? Date Reported: ? 2018 ? Interpretation RESULT: Negative for HPV. No E6 or E7 mRNA is detected from HPV types 16,18,31,33,35, 39,45,51,52,56,58, 59,66, and 68 by machine engraver mediated amplification. Comments Document reviewed and electronically signed by: ? System Interface ? Report date: 2018 By the signature above, the attending physician certifies that he/she has personally conducted a gross and/or microscopic examination of the described specimens and rendered or confirmed the above diagnosis. End of Report [facility] 06/05/2018 06/07/2018 Larissa Nye NP PATHOLOGY ORDERABLES [facility] [address] [place] [address] documented in this encounter Visit Diagnoses Not on filedocumented in this encounter Care Teams Projection Welding Machine Operator Relationship Specialty Start Date End Date Unknown, Provider, PCP - General 12/29/14 documented as of this encounter
--- OUTSIDE RECORDS SUMMARY | 2023-09-21 00:12 | XMS_ITS | Referral Summary ---
Author Organization [facility] Address [address] [place] [address] Care Team Providers Care Detail Manager Name Role Phone Unknown, Provider Primary Care Provider Social History Tobacco Use Types Packs/Day Years Used Date Smoking Tobacco: Never Assessed Sex and Gender Information Value Date Recorded Sex Assigned at Not on file Gender Identity Not on file Sexual Orientation Not on file Plan of Treatment Not on file Care Teams Detail Manager Relationship Specialty Start Date End Date Unknown, Provider, PCP - General 12/29/14
--- OUTSIDE RECORDS SUMMARY | 2023-09-21 00:12 | XMS_ITS | Encounter Summary ---
Author Organization [facility] [place] [address] Care Team Providers Care Photographer'S Model Name Role Phone Unknown Primary Care Provider Unavailabl e Encounter Details Date Type Department Care Team (Late st Contact Info) Description 05/10/2012 Orders Only [place] [phone] Ruchi Jansen MD [facility] [place] [address] Social History Tobacco Use Types Packs/Day Years Used Date Smoking Tobacco: Never Assessed Sex and Gender Information Value Date Recorded Sex Assigned at Not on file Gender Identity Not on file Sexual Orientation Not on file documented as of this encounter Plan of Treatment Not on file documented as of this encounter Procedures Procedure Name Priority Date/Time Associated Diagnosis Comments FILM LIBRARY STORAGE ONLY DX ABDOMEN Routine 05/10/2012 3:05 PM EDT documented in this encounter Results * Film Library- Storage only DX Abdomen (05/10/2012 3:05 PM EDT) 05/10/2012 3:05 PM EDT Narrative [facility] [place] - 10/09/2013 6:09 PM EDT This is a non-reportable exam. Procedure Note Tigre Reynolds - 10/09/2013 This is a non-reportable exam. Ruchi Jansen MD IM FILM LIBRARY ORD ERABLES RAD [address] [place] [address] documented in this encounter Visit Diagnoses Not on filedocumented in this encounter Care Teams Photographer'S Model Relationship Specialty Start Date End Date Unknown None PCP - General 01/11/10 10/30/16 documented as of this encounter
--- NOTE | 2023-09-21 07:45 | DI.MAMMO_ITS ---
Exam(s) MAMMO SCREENING EXAM: MAMMO SCREENING CLINICAL HISTORY: screening, Z12.39 TECHNIQUE: Mammograms were interpreted according to the usual protocol including computer analysis w [employer] CAD system, tomosynthesis and C-view imaging. COMPARISON: 2017 through 2021 FINDINGS: The breasts are composed of scattered fibroglandular densities, Breast Density category B. No suspicious masses or suspicious microcalcifications are seen. No skin thickening or abnormal axillary lymph nodes are seen. There has been no significant change from prior exams. IMPRESSION: BI-RADS Category 1, Negative mammogram Yearly screening mammography is recommended. Breast Density - Category B, scattered fibroglandular densities. A negative radiographic report should not delay biopsy if a dominant or clinically suspicious mass is present. Up to ten percent of cancers are not identified on mammography. A negative report may reinforce clinical impression. Adenosis and dense breasts may obscure an underlying neoplasm. False positive reports average 6 to 10%. Patient will receive a letter notifying them of these results.
== END ==
PROVIDERS: PCP Nurse Practitioner Family; Visit Provider Nurse Practitioner Family
DX: Z12.39 Encounter for other screening for malignant neoplasm of breast (principal); Z12.31 Encounter for screening mammogram for malignant neoplasm of breast
CPT/HCPCS: 77063; 77067